=== PATIENT | female | born 1955 ===

== ENCOUNTER 2018-03-20 12:04 | Inpatient (IN) ==
[2018-03-20] MEDS ORDERED: Heparin 10,000 UNITS/10 ML Vial (for IV use) IV.PUSH STA (12:05)
[2018-03-20] MEDS ORDERED: Sod Chloride 0.9% Inj 1,000 ML IV.SIG SCH (12:15)
--- NOTE | 2018-03-20 12:26 | ED ---
HPI General Chief complaint: STEMI Alert Stated complaint: stemi alert Time Seen by Provider: 03/20/18 12:04 Source: patient Mode of arrival: EMS Limitations: no limitations History of Present Illness HPI narrative: Patient is a 62-year-old female brought in by EMS as a STEMI alert. Patient has extensive cardiac history, though she is unable to provide much of this. She is visiting from [place]. She says that suddenly prior to arrival, she developed substernal chest pain that doubled her over. She does feel some shortness of breath. She says she takes Coumadin, she did not take it last night, but did take a dose this morning. She has not had nausea or vomiting. She is unable to provide other information about her medical history. Related Data Allergies Allergy/AdvReac Type Severity Reaction Status Date / Time No Known Allergies Allergy Verified 03/20/18 12:05 Review of Systems ROS: all other systems reviewed are negative Constitutional Denies chills and Denies fever(s) ENT Denies dizziness Cardiovascular Reports chest pain Respiratory Denies cough and Denies dyspnea Gastrointestinal Denies abdominal pain, Denies nausea and Denies vomiting Musculoskeletal Denies myalgias and Denies arthralgias Integumentary/Breasts Denies skin pain and Denies wounds PMFSH Medical History Medical History CVA (cerebral vascular accident) (Acute) Cardiac defibrillator in place (Acute) High cholesterol (Acute) Surgical History Surgical History Hx of CABG (Acute) Social History Social History Substance History: No History of Abuse Smoking Status: Current every day smoker Tobacco Type: Cigarettes How Often Do You Have a Drink Containing Alcohol: Monthly or less Recent Travel in [facility] within the Last 8 Weeks: No Recent Out of Country Travel within the Last 8 Weeks: No Immunization History Tetanus Immunization: <5 Years Exam Narrative Exam Narrative: GENERAL: Awake and alert, no acute distress. SKIN: Focused skin assessment warm/dry. HEAD: Atraumatic. Normocephalic. EYES: Pupils equal and round. No scleral icterus. No injection or drainage. ENT: Mucous membranes pink and moist. NECK: Trachea midline. No JVD. CARDIOVASCULAR: Tachycardia. No murmur appreciated. RESPIRATORY: No accessory muscle use. Clear to auscultation. Breath sounds equal bilaterally. GASTROINTESTINAL: Abdomen soft, non-tender, nondistended. MUSCULOSKELETAL: No obvious deformities. No clubbing. No cyanosis. No edema. NEUROLOGICAL: Awake and alert. No obvious cranial nerve deficits. Motor grossly within normal limits. Normal speech. PSYCHIATRIC: Appropriate mood and affect; insight and judgment normal. Course Initial Documented Vital Signs Pulse Oximetry 96 03/20/18 12:06 Last Documented Vital Signs Temperature 98.2 F 03/20/18 12:09 Pulse Rate 136 H 03/20/18 12:37 Respiratory Rate 19 03/20/18 12:37 Blood Pressure 104/57 L 03/20/18 12:37 Pulse Oximetry 96 03/20/18 12:37 Medical Decision Making MDM Narrative Medical decision making narrative: Patient is a 62-year-old female who comes in complaining of chest pain. She was a STEMI alert by EMS. Patient is poor historian, but has scarring to her chest and extensive cardiac history. IV established, labs sent. STEMI alert was called here in the ED. EKG by EMS shows ST elevation in leads V3 through V5 with T wave depressions in V6. Patient given aspirin and heparin. Dr. Stein took the patient to the [facility]. Medical Screen Exam Complete: Yes Emergency Medical Condition: Yes Differential Diagnosis Differential Diagnosis: STEMI versus an STEMI versus CHF Lab Data Lab results reviewed: Yes I reviewed the patient's lab results. Result diagrams: 03/20/18 12:08 Lab Results 03/20/18 03/20/18 03/20/18 Range/Units 12:08 12:08 12:08 WBC 9.5 (4.0-11.0) th/mm3 RBC 4.79 (4.00-5.30) mil/mm3 Hgb 15.2 (11.6-15.3) gm/dL POC Hgb (Calc) (11.6-15.3) g/dL Hct 45.4 (35.0-46.0) % POC Hct (35-46.0) % MCV 94.7 (80.0-100.0) fL MCH 31.7 (27.0-34.0) pg MCHC 33.5 (32.0-36.0) % RDW 16.3 (11.6-17.2) % Plt Count 293 (150-450) th/mm3 MPV 9.1 (7.0-11.0) fL Neut % (Auto) 53.3 (16.0-70.0) % Lymph % (Auto) 39.9 (9.0-44.0) % Banks % (Auto) 4.3 (0.0-8.0) % Eos % (Auto) 2.0 (0.0-4.0) % Baso % (Auto) 0.5 (0.0-2.0) % Neut # (Auto) 5.1 (1.8-7.7) th/mm3 Lymph # (Auto) 3.8 (1.0-4.8) th/mm3 Banks # (Auto) 0.4 (0.0-0.9) th/mm3 Eos # (Auto) 0.2 (0.0-0.4) th/mm3 Baso # (Auto) 0.0 (0.0-0.2) th/mm3 WBC Differential . Differential Comment Auto diff final PT 20.3 H (9.8-11.6) sec INR 2.0 Ratio APTT 42.1 H (23.4-31.7) sec POC Sodium (137-144) mmol/L POC Potassium (3.6-5.0) mmol/L POC Chloride (102-111) mmol/L POC BUN (5-21) mg/dL POC Creatinine (0.6-1.3) mg/dL POC Glucose (68-110) mg/dL Calcium 9.2 (8.5-10.1) mg/dL Total Creatine Kinase 148 (26-192) U/L CK-MB (CK-2) 2.3 (0.5-3.6) ng/mL Troponin I 0.11 H (0.02-0.05) ng/mL B-Natriuretic Peptide (0-100) pg/mL 03/20/18 03/20/18 Range/Units 12:08 12:08 WBC (4.0-11.0) th/mm3 RBC (4.00-5.30) mil/mm3 Hgb (11.6-15.3) gm/dL POC Hgb (Calc) 15.6 H (11.6-15.3) g/dL Hct (35.0-46.0) % POC Hct 46.0 (35-46.0) % MCV (80.0-100.0) fL MCH (27.0-34.0) pg MCHC (32.0-36.0) % RDW (11.6-17.2) % Plt Count (150-450) th/mm3 MPV (7.0-11.0) fL Neut % (Auto) (16.0-70.0) % Lymph % (Auto) (9.0-44.0) % Banks % (Auto) (0.0-8.0) % Eos % (Auto) (0.0-4.0) % Baso % (Auto) (0.0-2.0) % Neut # (Auto) (1.8-7.7) th/mm3 Lymph # (Auto) (1.0-4.8) th/mm3 Banks # (Auto) (0.0-0.9) th/mm3 Eos # (Auto) (0.0-0.4) th/mm3 Baso # (Auto) (0.0-0.2) th/mm3 WBC Differential Differential Comment PT (9.8-11.6) sec INR Ratio APTT (23.4-31.7) sec POC Sodium 141 (137-144) mmol/L POC Potassium 4.6 (3.6-5.0) mmol/L POC Chloride 108 (102-111) mmol/L POC BUN 8 (5-21) mg/dL POC Creatinine 1.0 (0.6-1.3) mg/dL POC Glucose 107 (68-110) mg/dL Calcium (8.5-10.1) mg/dL Total Creatine Kinase (26-192) U/L CK-MB (CK-2) (0.5-3.6) ng/mL Troponin I (0.02-0.05) ng/mL B-Natriuretic Peptide 437 H (0-100) pg/mL Imaging Data Radiologist's impression: Chest X-Ray 03/20/18 12:06 CONCLUSION: 1. Mild diffuse interstitial prominence of unknown chronicity given lack of prior exams. Differential considerations include mild interstitial edema. 2. Minimal blunting of the right CP angle which may reflect mild pleural thickening versus trace pleural effusion. ECG Data EKG Prior to Arrival: Yes Attestation: I personally reviewed and interpreted this ECG as follows: Interpretation: ECG shows tachycardia at a rate of 136, intraventricular conduction delay, diffuse ST elevations. Discharge Plan Discharge Disposition Patient Disposition: 30 Still Patient Discharge Condition Condition: Stable Discharge Details Diagnosis: ST elevation myocardial infarction (STEMI) Physicians Team ED Provider: Rita Tee Primary Care Provider: UNKNOWN, Attending Provider: Juan David Stein Other Providers: Freddie Francis Discharge Interventions Interventions: ED Discharge Assessment Last Done: 03/20/18 12:43 Vital Signs Last Done: 03/20/18 12:37 Status ED Status: Left Department Discharge Information Discharge Date/Time: 03/20/18 12:43
[2018-03-20 12:29] LABS: Baso % (Auto) 0.5 % (0.0-2.0); Eos # (Auto) 0.2 th/mm3 (0.0-0.4); Hematocrit 45.4 % (35.0-46.0); Hemoglobin 15.2 gm/dL (11.6-15.3); Lymph # (Auto) 3.8 th/mm3 (1.0-4.8); Lymph % (Auto) 39.9 % (9.0-44.0); Mean Corpuscular HGB Conc 33.5 % (32.0-36.0); Mean Corpuscular Hemoglobin 31.7 pg (27.0-34.0); Mean Corpuscular Volume 94.7 fL (80.0-100.0); Mean Platelet Volume 9.1 fL (7.0-11.0); Mono # (Auto) 0.4 th/mm3 (0.0-0.9); Mono % (Auto) 4.3 % (0.0-8.0); Neut # (Auto) 5.1 th/mm3 (1.8-7.7); Neut % (Auto) 53.3 % (16.0-70.0); Platelet Count 293 th/mm3 (150-450); Red Blood Count 4.79 mil/mm3 (4.00-5.30); Red Cell Distribution Width 16.3 % (11.6-17.2); White Blood Count 9.5 th/mm3 (4.0-11.0)
[2018-03-20 12:35] LABS: Activated Partial Thrombo Time 42.1 sec (23.4-31.7); Prothrombin Time 20.3 sec (9.8-11.6)
[2018-03-20] MEDS ORDERED: Heparin/NS PF Inj 500 ML ONE ×2 (12:37)
[2018-03-20] MEDS ORDERED: fentaNYL Citrate Inj 100 MCG/2 ML Ampul ONE (12:37)
--- NOTE | 2018-03-20 12:41 | XR ---
EXAM DATE: 03/20/2018 12:38 PM EST AGE/SEX: 62 years / Female INDICATIONS: Chest pain. STEMI ALERT. CLINICAL DATA: This is the patient's initial encounter. Patient reports that signs and symptoms have been present for 1 day and indicates a pain score of 4/10. MEDICAL/SURGICAL HISTORY: Hypercholesterolemia. CVA. CABG. Pacemaker. COMPARISON: No prior exams available for comparison. FINDINGS: Diffuse interstitial prominence. Slight blunting of the costophrenic angle on the right. Dual-lead AI CD device in place with postsurgical features of prior median sternotomy. Cardiac silhouette is withi n normal limits. Bony thorax is intact. CONCLUSION: 1. Mild diffuse interstitial prominence of unknown chronicity given lack of prior exams. Differentia l considerations include mild interstitial edema. 2. Minimal blunting of the right CP angle which may reflect mild pleural thickening versus trace ple ural effusion. Electronically signed by: Keaton Gary MD 03/20/2018 12:39 PM EST
[2018-03-20] MEDS ORDERED: Lidocaine PF 1% Inj 30 ML Vial ONE (12:47)
[2018-03-20 12:50] LABS: Calcium 9.2 mg/dL (8.5-10.1)
[2018-03-20 12:58] LABS: Troponin I 0.11 ng/mL (0.02-0.05)
[2018-03-20 13:03] LABS: Creatine Kinase 148 U/L (26-192)
[2018-03-20 13:16] LABS: Creatine Kinase MB 2.3 ng/mL (0.5-3.6)
[2018-03-20] MEDS ORDERED: Adenosine Stress Test 90 MG/30 ML Vial IV.SIG ONE (13:21)
[2018-03-20] MEDS ORDERED: Heparin 10,000 UNITS/10 ML Vial (for IV use) ONE (13:38)
[2018-03-20] MEDS ORDERED: Misc Info for Pharmacy OTHER STA (14:01)
--- NOTE | 2018-03-20 14:03 | CATHPROC ---
[facility] HIS Report Study Information Study Number Admission Scheduled Start Study Start [id number] Mar 20 2018 12:04PM 03/20/2018 Mar 20 2018 12:33PM [place] [facility] Cardiac Catheterization Admit Source Facility Department Emergency department [facility] - Maxillofacial Prosthetics Dentist Physician and Clinical Staff Initial Juan David Quinteros Filter Press Supervisor Ashley Vega RN Recorder Elizabeth Potter,RT(R) Scrub Merle Garza,RAFAEL TECH2 Procedures Performed Procedure Location (Site) Vessel Name Coronary Angiograms LCA Left Coronary Coronary Angiograms RCA Right Coronary L Heart Cath LV Gram-hand inj. LV LV Ventricle Stent LAD Prox Left Coronary Wire insertion Fem Art (right) Femoral Art Equipment Time Reinforcing Steel Erector Description Size Mfg Part Number Used/Scraped TRANSDUCER, TRUWAVE [id number] 12:51 BENITEZ TANG * Used W/STOCKCOCK *[id number] [id number] *[id number] [id number] *[id number] *[id number] *[id number] 12:51 ACTV8me BLANKET,WARM AIR CCL * Used *[id number] 12:51 ACTV8me PACK, CCL CUSTOM * Used *[id number] 12:51 [employer] PACER PEN, SKIN DUAL W/ RULER * Used *[id number] 13:37 MEDTRONIC STENT, 3.5 9 INTEGRITY 3.5 9 Used *[id number] 13:39 TechnoVax MEDICAL 30 RADHA INDEFLATOR Used *[id number] 13:15 Techno[employer]ax MEDICAL SHEATH, FR6.5 PRELUDE 11CM FR 6.5 038ACT Used *[id number] [id number] 12:51 [employer]ax MEDICAL WIRE, 3MMJ .035 180CM 180CM Used *[id number] 12:51 NAMIC MANIFOLD, 4 PORT * Used *[id number] 12:51 NYCOMED OMNIPAQUE, 350 MG, 150ML 150ML [id number] Used [id number] 12:51 TERUMO MEDICAL SHEATH, FR4 TERUMO (10CM) FR 4 Used *[id number] 13:21 VOLCANO PRIME WIRE, VERRATA 185CM 185CM Used *[id number] Equipment Model, Serial, Lot Number and Expiration Data Description Model Number Serial Number Lot Number Expiration Date PRIME WIRE, VERRATA 185CM [id number] 12-26-2020 STENT, 3.5 9 INTEGRITY [id number] 08-08-2018 History: Allergies Allergy Reaction No Known Allergies History: Risk Factors Prior CABG Yes History: Stress Tests Stress or Imaging Studies Performed No History: Other Current Smoker Yes Labs Hgb (g/dl) Hct (%) WBC (l/cumm) Platelets (thousands) 11.60-17.00 35.00-51.00 4.00-11.00 150.00-450.00 15.2 45.4 9.5 293 Glucose (mg/dl) BUN (mg/dl) Creatinine (mg/dl) BUN:Creatinine (1:x) 74.00-106.00 7.00-18.00 0.50-1.30 10.00-20.00 107 8 1.0 8 Na (meq/l) K (meq/l) 136.00-145.00 3.50-5.10 141 4.6 INR (PTT:PT) 0.90-1.10 2 Medication Medication Total Dose (Bolus/Oral) Medication Total Dosage/Unit 1% XYLOCAINE 20 mL FENTANYL 25 mcg HEPARIN 1500 units PLAVIX 600 mg VERSED 1 mg Medications (Bolus/Oral) Medication Time Given Dosage/Unit Administered By Reason 1% XYLOCAINE 03/20/2018 1:02:15 PM 20 mL Juan David Stein 20 mL 1% XYLOCAINE given in lab by Juan David Stein in Right Groin via Subcutaneous. VERSED 03/20/2018 1:07:00 PM 1 mg Ashley Vega 1 mg VERSED given in lab by Ashley Vega RN in Right Wrist via Peripheral IV. Ordered by Juan David Stein. FENTANYL 03/20/2018 1:08:21 PM 25 mcg Ashley Vega 25 mcg FENTANYL given in lab by Ashley Vega RN in Right Wrist via Peripheral IV. Ordered by Juan David Hernandez. HEPARIN 03/20/2018 1:39:25 PM 1500 units Ashley Vega 1500 units HEPARIN given in lab by Ashley Vega RN in Right Wrist via Peripheral IV. Ordered by Juan David Quintanilla. PLAVIX 03/20/2018 1:52:20 PM 600 mg Ashley Vega 600 mg PLAVIX given in lab by Ashley Vega RN via Oral. Ordered by Juan David Stein. Medication (Drip) Medication Time Given Dosage/Unit Concentration/Unit Diluent (ml) Solution 03/20/2018 12:46:21 IV Solutions 50 mL (IV) NaCl .9 PM Patient arrived on IV Solutions in Right Wrist via Peripheral IV. Pump/Drip Flow using NaCl .9. Initial Case Assessment Cardiovascular Rhythm Chest Pain paced 0 Edema Present Skin color Skin None Normal Warm Dry Circulatory - Right Pulses Dorsalis Pedis Femoral 1 1 Scale (0,1,2,3,4,d) Circulatory - Left Pulses Dorsalis Pedis Femoral 1 1 Scale (0,1,2,3,4,d) Neurological State Oriented to time-place- Alert Moves all extremities person Chronological Log Time Study Chronological Log 12:35:54 Emergency Room notified that Maxillofacial Prosthetics Dentist is ready. 12:45:54 Patient arrived via Bed. 12:45:55 Patient Name, D.O.B, / Armband Verified By R.N. 12:45:57 Consent signed by the physician and the patient and verified by the Maxillofacial Prosthetics Dentist staff. 12:46:03 Patient has been NPO for Less than 6Hrs. 12:46:03 Skin Breakdown- none per pt 12:46:05 Patient Warmer Placed on the Table. 12:46:05 Disposable Defibrillator Pads Placed On Patient. 12:46:06 Sabra Prominences Protected 12:46:07 A # 20 IV was noted in the Wrist (right). Grade = 0 12:46:21 Patient arrived on IV Solutions in Right Wrist via Peripheral IV. Pump/Drip Flow using Na Cl .9. Vitals capture started with the following parameters, Patient=Adult, Interval=5 min, Initial Jeudhvfi=510 mmHg, 12:50:13 Deflation Rate=5 mmHg, Cuff placed on Left Arm 12:50:40 Reference ECG taken 12:53:09 Bilateral groins prepped with 2% chlorhexidine, and draped after a 3 minute waiting time. 12:53:27 JH=603 bpm, NIBP=90/72 mmhg, SpO2=98.0 %, Resp=11 B/min 12:53:39 MD paged 12:53:57 MD responded Assessment: Initial Case, Rhythm=paced, Chest Pain=0, Edema=None, Color=Normal, Skin = Warm, Dr y Right Pulses: Andrae Ped=1, Femoral=1 12:54:12 Left Pulses: Andrae Ped=1, Femoral=1 Neurological: State=Alert, Ox3, CORREA 12:55:01 Pressure channel 1 zeroed. 12:57:05 MD arrived. 12:59:00 KK=832 bpm, VANE=437/73 mmhg, SpO2=95.0 %, Resp=14 B/min Time Out. Correct patient, correct procedure, correct physician, labs, allergies, and equipment verified with livestock laborer 13:01:47 team present. Fire risk assesment completed (see hard stop sheet for coding). Time Out Conc urred by MD and individual staff in procedure. 13:02:12 Case Start 13:02:15 20 mL 1% XYLOCAINE given in lab by Juan David Stein in Right Groin via Subcutaneous. 13:03:23 UQ=469 bpm, QMFO=208/72 mmhg, SpO2=99.0 %, Resp=16 B/min 13:04:08 Access site was Right Femoral Artery. 13:04:17 A SHEATH, FR4 TERUMO (10CM) FR 4 was advanced into the Fem Art (right) using the Percutaneo us technique. 13:04:52 Activated Clotting Time Drawn A JR 4.0 INFINITI CATHETER FR 4 was advanced over a wire. OMNIPAQUE, 350 MG, 150ML 150ML was us ed for 13:05:13 injections. Recorded Pressure: LV, SS=830, Condition=Condition 1 13:05:58 (Left Ventricle) LV 95/15/31 13:06:06 The LV was manually injected with 8 cc's and visualized. OMNIPAQUE, 350 MG, 150ML 150ML use d. 13:06:57 The RCA was injected and visualized at various angles. OMNIPAQUE, 350 MG, 150ML 150ML used . 13:07:00 1 mg VERSED given in lab by Ashley Vega RN in Right Wrist via Peripheral IV. Ordered by Juan David Stein. Recorded Pressure: Ao, AE=949, Condition=Condition 1 13:07:10 (Aorta) Ao 93/72/81 13:08:21 25 mcg FENTANYL given in lab by Ashley Vega RN in Right Wrist via Peripheral IV. Ordere d by Juan David Stein. 13:08:24 OI=335 bpm, NIBP=94/74 mmhg, SpO2=99 %, Resp=15 B/min 13:09:42 ACT (Normal Range 90-180) = 258 After removing the current catheter a JL 4.0 INFINITI CATHETER FR 4 was advanced over a WIRE, 3 MMJ .035 180CM 13:10:27 180CM. 13:11:44 The LCA was injected and visualized at various angles. OMNIPAQUE, 350 MG, 150ML 150ML used . 13:13:21 VY=965 bpm, NIBP=96/76 mmhg, SpO2=96 %, Resp=20 B/min 13:17:00 Catheter was removed 13:18:57 WB=932 bpm, BTSH=914/75 mmhg, SpO2=97 %, Resp=17 B/min 13:23:25 GY=013 bpm, NIBP=90/73 mmhg, SpO2=97 %, Resp=19 B/min 13:29:03 KZ=483 bpm, NIBP=99/73 mmhg, SpO2=98.0 %, Resp=17 B/min A XB 4.0 GUIDE CATHETER FR 6 was advanced over a wire. OMNIPAQUE, 350 MG, 150ML 150ML was used for 13:29:26 injections. After removing the current catheter a XB 3.5 GUIDE CATHETER FR 6 was advanced over a WIRE, 3MMJ .035 180CM 13:31:19 180CM. 13:33:03 A PRIME WIRE, VERRATA 185CM 185CM was inserted via Fem Art (right). 13:33:25 BU=954 bpm, NIBP=99/73 mmhg, SpO2=98 %, Resp=16 B/min 13:35:52 Flow Wire was was placed in the LAD Prox. The IFR measures 0.87 Percent. An STENT, 3.5 9 INTEGRITY 3.5 9 Bare Metal Stent was inserted through a XB 3.5 GUIDE CATHETER F R 6 over a 13:37:46 PRIME WIRE, VERRATA 185CM 185CM. 13:38:24 SH=046 bpm, NIBP=98/81 mmhg, SpO2=98 %, Resp=19 B/min A STENT, 3.5 9 INTEGRITY 3.5 9 was deployed using a 30 RADHA INDEFLATOR at 10 atmospheres for 16 seconds in the 13:39:01 LAD Prox. 13:39:25 1500 units HEPARIN given in lab by Ashley Vega, RN in Right Wrist via Peripheral IV. Ord ered by Jua nDavid Stein. 13:39:56 Delivery device removed 13:40:10 Wire removed 13:40:14 Catheter was removed 13:40:17 Case End (Physician broke scrub) 13:43:25 KB=533 bpm, NIBP=98/76 mmhg, SpO2=99.0 %, Resp=17 B/min 13:43:36 In the Fem Art (right) the SHEATH, FR6.5 PRELUDE 11CM FR 6.[address] by Juan David Campbell. 13:43:57 Sterile dressing applied to site 13:43:57 No case complications noted. 13:43:59 Cine recording checked. 13:45:56 Bedside Report will be given. 13:45:57 Implantable Device card placed in patient's chart. 13:46:01 A Left Heart Cath was performed. 13:46:08 Activated Clotting Time Drawn 13:48:26 EF=156 bpm, NIBP=98/68 mmhg, SpO2=99 %, Resp=18 B/min 13:50:06 ACT (Normal Range 90-180) = 320 13:52:20 600 mg PLAVIX given in lab by Ashley Vega, NICOLETTE via Oral. Ordered by Juan David Stein. 13:53:29 IQ=957 bpm, NIBP=80/57 mmhg, SpO2=99.0 %, Resp=20 B/min 13:58:57 EK=002 bpm, FJQV=283/73 mmhg, SpO2=96.0 %, Resp=14 B/min 14:03:07 Vitals capture stopped. 14:05:32 Patient ransported to [facility]. 16:05:20 Activated Clotting Time Drawn on floor. 16:08:12 ACT (Normal Range 90-180) = 174 16:10:18 Sheath removed; pressure applied to access site. 16:30:27 Hemostasis obtained. 16:31:51 Sterile dressing applied to site 16:45:55 Site reprepped with chloroprep prior to sheath removal. 16:49:03 Nurse assessed site, no sign of bleeding or hemotoma. BP 91/54, pedal pulse palpable. End Study - Contrast Media Used In Study Contrast Total Opened (mL) Total Used (mL) Total Wasted (mL) Omnipaque 350 150 100 50 End Study - Maximum Contrast Load Max Contrast Load (mL) 353.4 End Study - Radiation Exposure Fluoro Time (minutes) 7.4 End Study - Patient Disposition Complications Transferred To Interventional Outcome No Telemetry Bed successful
--- NOTE | 2018-03-20 14:56 | MB ---
cc: Juan David Stein MD DATE: 03/20/2018 HISTORY OF PRESENT ILLNESS: Valery is a very pleasant 62-year-old lady admitted visiting from out of town, developed severe chest pain this morning. She came to the ER, had what appeared to be a bundle branch block. STEMI alert was called by the ER physician. At the time of arrival to the laboratory aide, the patient is pain free. She otherwise denies any fevers, cough, chills, bleeding, PND, orthopnea, syncope, or dizziness. PAST MEDICAL HISTORY: Per the history of present illness. She has a history of CVA, ICD hyperlipidemia, status post coronary artery bypass grafting, she thinks, approximately 10 years ago. ALLERGIES: NONE. SOCIAL HISTORY: She smokes daily. Rarely drinks alcohol. PHYSICAL EXAMINATION: VITAL SIGNS: Temperature 98.2, pulse initially 136, current pulse is 132, blood pressure 111/70, sats 97% on room air. GENERAL: She is alert and oriented x 3, in no acute distress. NECK: Supple. No JVD. No bruit. CARDIOVASCULAR: S1, S2. No murmurs, rubs or gallops. LUNGS: Clear to auscultation bilaterally. ABDOMEN: Soft, nontender, nondistended with positive bowel sounds. EXTREMITIES: No extremity edema. DIAGNOSTIC DATA: Chest x-ray shows mild diffuse interstitial prominence of unknown chronicity, given lack of prior exams. Differential considerations include mild interstitial edema, minimal blunting of the right costophrenic angle, which may reflect mild pleural thickening versus trace pleural effusion. EKG is not in the computer. From what I recall, in my view, it appeared to show a left bundle branch block, possible ST elevation in the high lateral leads and the anteroseptal leads. LABORATORY DATA: White count 9.5, hemoglobin 15.2, hematocrit 15.6, hematocrit 29.3. INR is 2.0, sodium 141, potassium 4.6, chloride 108, bicarbonate 8, creatinine 1.0. Troponin is 0.11. BNP is 437. DIAGNOSES: 1. Grq-DV-drkusmwet myocardial infarction. 2. Decompensated congestive heart failure. 3. Coronary artery disease. 4. Tobacco abuse. 5. Chronic obstructive pulmonary disease. 6. Atrial fibrillation. 7. Atrial fibrillation with rapid ventricular response. DISCUSSION: At this point in time, the patient is having resting chest pain, elevated troponin, abnormal EKG, history of coronary artery disease, multiple risk factors. Therefore, I do think urgent left heart catheterization is indicated. PLAN: Urgent left heart catheterization. I strongly advised the patient to stop smoking. Further recommendations based on the details of her heart catheterization. MD VALERIE Rodriguez/lore , 02:00 PM , 02:09 PM
--- NOTE | 2018-03-20 16:02 | MR ---
cc: Juan David Stein MD DATE: 03/20/2018 PROCEDURES PERFORMED: Left heart catheterization, left ventriculography, coronary angiography, IFR of the proximal LAD. INDICATION: Acute coronary syndrome, left bundle branch block on EKG with defibrillator in place with occasional paced beats. Chest pain at rest new onset less than 24 hours, coronary artery disease, cardiomyopathy, status post coronary artery bypass grafting. DESCRIPTION OF PROCEDURE: The patient was brought to the cardiac catheterization lab and prepped and draped in the usual sterile fashion. 10 mL of 1% lidocaine was used for local anesthetic. Right A 4-Ukrainian sheath was placed in the right common femoral artery. A 4-Ukrainian JR4 and JL4 catheters were used to perform left ventriculography and right coronary angiography. FINDINGS: The LV pressure was 110/12-15. Ejection fraction 30%. Right coronary artery is large and dominant and has at least moderate diffuse disease over an approximately 40 mm segment in the midvessel with complex eccentric plaque. The right PDA and MURTAZA are 2.5 mm reference vessel diameter vessels with no significant disease angiographically. The left main coronary has mild disease in the distal segment up to 10-20% angiographically. The left circumflex vessel has no significant disease angiographically. The first obtuse marginal vessel is a large vessel at least 3 mm reference vessel diameter with no significant disease angiographically. There is a distal posterolateral artery 2.5 mm reference vessel diameter with proximal mid 20% stenosis and a very small posterolateral artery, 1 mm in reference vessel diameter, with no significant disease angiographically. There is a large ramus intermedius vessel, reference vessel diameter of at least 3 mm, no significant disease angiographically. LAD is a large transapical vessel with a proximal mid 70% stenosis. First diagonal artery has a high takeoff. It is a small 1.5 mm reference vessel diameter with an ostial proximal 50% stenosis. Second diagonal artery is a small 0.5 mm vessel with no significant disease angiographically. There is mild diffuse disease in the mid to distal segment up to 20% angiographically. There are left to right collaterals to a small 0.5-1 mm vessel that appears fluoroscopically to probably correspond to the inferolateral wall of left ventricle. It is unclear which vessel this is, as the right MURTAZA and PDA have no significant disease and the RV branch does not appear to be occluded as well. This may be an accessory posterolateral artery. It fills to a point of occlusion in its more proximal segment. A 6-Ukrainian sheath was exchanged for a 4-Ukrainian sheath. ACT initially was 250. A 6-Ukrainian XB 3.5 guide and a 0.014 Brussels pressure wire were placed into the proximal LAD. The introducer was removed. Guide catheter was thoroughly flushed with 20 mL normal saline. Pressure waveforms were normalized. I then placed the 0.014 Brussels pressure wire into the distal LAD. The IFR was 0.87. Therefore, decision was made to perform PCI of the proximal LAD, particularly given the large amount of myocardium distal to the lesion, and resting chest pain. A 359 Integra stent was placed at the lesion site and deployed with one inflation, 10 atmospheres for 20 seconds. Stenosis went from 70% to 0% with ROSS 3 flow. CONCLUSIONS: 1. Unstable angina. I do not see any cardiovascular cause for angina, somewhat indeterminate culprit. It is unclear whether her ischemia is coming from the proximal LAD or the collateralized vessel and the posterolateral segment of the left ventricle as detailed above. 2. Cardiomyopathy, ejection fraction 30-35%. 3. IFR of the proximal LAD of 0.87. 4. Note there was no competitive flow seen in any of the washoe vessels. I did not do aortic root shot. I was not able to engage in any grafts. Also, I was not able to advance the catheter and wire into the left subclavian as there was no competitive flow seen in any of the left-sided vessels. I do not think the risk/benefit ratio favored aggressive pursuit of any imaging of the ALDRICH or vein graft. 5. Recommend Plavix 600 mg load then 75 mg a day for 12-15 months, aspirin 162 mg load then probably needs an 81 mg, as she is established on Coumadin. I am going to hold her Aggrastat as her INR is 2.0. Final ACT is 320. I strongly advised the patient to stop smoking. MD VALERIE Rodriguez/lore , 01:54 PM , 02:05 PM
--- NOTE | 2018-03-20 16:26 | P.HP ---
History of Present Illness Service: Hospitalist Primary Care Physician: UNKNOWN Chief Complaint: Chest pain History of Present Illness: Ms. Cook is a pleasant 62-year-old female with a history of coronary artery disease status post CABG, AICD placement, atrial fibrillation who presented to the emergency department after she passed out at home. Patient lives with her and 2 other family members. I saw the patient after she came back from cardiac cath. She denies any chest pain prior to passing out. However she does admit to having some lightheadedness. Upon arrival, EKG showed a bundle branch block and STEMI alert was called by ER provider. Patient subsequently underwent emergent cardiac catheterization with a stent placed to proximal LAD. At the time of this interview, patient denies any chest pain, shortness of breath, fever or chills. She denies any changes in bowel or bladder habits. No cough, abdominal pain. Past medical history: Long history of coronary artery disease starting in her 30s, stent placement, CABG, cardiomyopathy requiring AICD placement, atrial fibrillation Past surgical history: CABG Family history: Father had premature CAD. No significant distance in mother. Social history: Patient continues to smoke 1 pack a day. She denies using alcohol or illicit drugs. Inpatient Certification: I certify that the inpatient services were ordered in accordance with Medicare regulations governing the order. This includes certification that hospital inpatient services are reasonable and necessary and in the case of services not specified as inpatient-only under 42 CFR 419.22(n), that they are appropriately provided as inpatient services in accordance to with the 2-midnight benchmark under 43 CFR 412.3(e) Estimated Total Length of Stay (Days): 2 Plans for Post Hospital Care: Home Review of Systems All other systems reviewed negative except as stated [facility] - History History Provided By: Patient, House Detective / EMT - Medical History Medical History: Medical History (Last Reviewed 03/20/18 @ 17:55 by Freddie Francis DO) CVA (cerebral vascular accident) Cardiac defibrillator in place High cholesterol - Surgical History Surgical History: Surgical History (Last Reviewed 03/20/18 @ 17:55 by Freddie Francis DO) Hx of CABG - Tobacco History Tobacco Use In Past 30 Days: Yes Smoking Status: Current every day smoker Tobacco Type: Cigarettes - Alcohol History How Often Do You Have a Drink Containing Alcohol: Monthly or less - Substance Use History Substance History: No History of Abuse - Travel History Recent Travel in the [place] Within the Last 8 Weeks: No Recent Travel Out of the Country Within the Last 8 Weeks: No - Immunization History Tetanus Immunization: <5 Years Medications and Allergies Active Medications: Active Medications Aspirin (Aspirin Chew) 81 mg PO DAILY [facility] Carvedilol (Coreg) 3.125 mg PO BID [facility] Clopidogrel Bisulfate (Plavix) 75 mg PO DAILY [facility] Sodium Chloride (Ns Inj) 1,000 mls @ 30 mls/hr IV.SIG .Q24H VANESSA Stop: 03/21/18 12:14 Last Admin: 03/20/18 12:33 Dose: 30 mls/hr Diltiazem HCl 125 mg/ Sodium (Chloride) 125 mls @ 5 mls/hr IV.CONT TITRATE PRN ; Protocol PRN Reason: Per Protocol Ramipril (Altace) 2.5 mg PO DAILY [facility] Sodium Chloride (Ns Flush) 2 ml IV.FLUSH PRN PRN PRN Reason: FLUSH AFTER USING IV ACCESS Sodium Chloride (Ns Flush) 2 ml IV.FLUSH BID VANESSA Sodium Chloride (Ns Flush) 2 ml IV.FLUSH PRN PRN PRN Reason: FLUSH AFTER USING IV ACCESS Allergies Allergy/AdvReac Type Severity Reaction Status Date / Time No Known Allergies Allergy Verified 03/20/18 12:05 Exam Vital signs: Vital Signs 03/20/18 12:06 03/20/18 12:09 03/20/18 12:37 Temperature 98.2 F Pulse Rate 136 H 136 H Respiratory Rate 18 19 Blood Pressure 111/70 104/57 L Pulse Oximetry 96 97 96 Intake & Output 03/19/18 03/20/18 03/20/18 18:59 06:59 18:59 Weight 70.76 kg Narrative: GENERAL: This is a well-nourished, well-developed patient, in no apparent distress. SKIN: No rashes, ecchymoses or lesions. Warm and dry. HEAD: Atraumatic. Normocephalic. No temporal or scalp tenderness. EYES: Pupils equal round and reactive. No injection or drainage. ENT: Nose without bleeding, purulent drainage or septal hematoma. Airway patent. NECK: Trachea midline. No lymphadenopathy. Supple, nontender, no meningeal signs. CARDIOVASCULAR: Regular rate and rhythm without murmurs, gallops, or rubs. No JVD. RESPIRATORY: Clear to auscultation. Breath sounds equal bilaterally. No wheezes , rales, or rhonchi. GASTROINTESTINAL: Abdomen soft, non-tender, nondistended. No guarding. MUSCULOSKELETAL: Extremities without clubbing, cyanosis, or edema. NEUROLOGICAL: Awake and alert. Cranial nerves II through XII intact. No focal neurological deficits. Normal speech. Results - Labs CBC & Chem 7: 03/20/18 12:08 Labs: Laboratory Results - last 24 hr 03/20/18 03/20/18 03/20/18 12:08 12:08 12:08 WBC 9.5 RBC 4.79 Hgb 15.2 POC Hgb (Calc) Hct 45.4 POC Hct MCV 94.7 MCH 31.7 MCHC 33.5 RDW 16.3 Plt Count 293 MPV 9.1 Neut % (Auto) 53.3 Lymph % (Auto) 39.9 [place] % (Auto) 4.3 Eos % (Auto) 2.0 Baso % (Auto) 0.5 Neut # (Auto) 5.1 Lymph # (Auto) 3.8 [place] # (Auto) 0.4 Eos # (Auto) 0.2 Baso # (Auto) 0.0 WBC Differential . Differential Comment Auto diff final PT 20.3 H INR 2.0 APTT 42.1 H POC Sodium POC Potassium POC Chloride POC BUN POC Creatinine POC Glucose Calcium 9.2 Total Creatine Kinase 148 CK-MB (CK-2) 2.3 Troponin I 0.11 H B-Natriuretic Peptide 03/20/18 03/20/18 12:08 12:08 WBC RBC Hgb POC Hgb (Calc) 15.6 H Hct POC Hct 46.0 MCV MCH MCHC RDW Plt Count MPV Neut % (Auto) Lymph % (Auto) [place] % (Auto) Eos % (Auto) Baso % (Auto) Neut # (Auto) Lymph # (Auto) [place] # (Auto) Eos # (Auto) Baso # (Auto) WBC Differential Differential Comment PT INR APTT POC Sodium 141 POC Potassium 4.6 POC Chloride 108 POC BUN 8 POC Creatinine 1.0 POC Glucose 107 Calcium Total Creatine Kinase CK-MB (CK-2) Troponin I B-Natriuretic Peptide 437 H - Imaging Impressions Chest X-Ray 03/20/18 12:06 CONCLUSION: 1. Mild diffuse interstitial prominence of unknown chronicity given lack of prior exams. Differential considerations include mild interstitial edema. 2. Minimal blunting of the right CP angle which may reflect mild pleural thickening versus trace pleural effusion. Caprini VTE Risk Assessment Caprini VTE Risk Assessment: No/Low Risk (score <= 1) Caprini Risk Assessment Model: Point Value = 1 Point Value = 2 Point Value = 3 Point Value = 5 Age 41-60 Minor surgery BMI > 25 kg/m2 Swollen legs Varicose veins or History of unexplained or recurrent spontaneous Oral contraceptives or hormone replacement Sepsis (< 1 month) Serious lung disease, including pneumonia (< 1 month) Abnormal pulmonary function Acute myocardial infarction Congestive heart failure (< 1 month) History of inflammatory bowel disease Medical patient at bed rest Age 61-74 Arthroscopic surgery Major open surgery (> 45 min) Laparoscopic surgery (> 45 min) Malignancy Confined to bed (> 72 hours) Immobilizing plaster cast Central venous access Age >= 75 History of VTE Family history of VTE Factor V Leiden Prothrombin [id number] Lupus anticoagulant Anticardiolipin antibodies Elevated serum homocysteine Heparin-induced thrombocytopenia Other congenital or acquired thrombophilia Stroke (< 1 month) Elective arthroplasty Hip, pelvis, or leg fracture Acute spinal cord injury (< 1 month) Prophylaxis Regimen: Total Risk Factor Score Risk Level Prophylaxis Regimen 0-1 Low Early ambulation 2 Moderate Order ONE of the following: *Sequential Compression Device (SCD) *Heparin 5000 units SQ BID 3-4 Higher Order ONE of the following medications: *Heparin 5000 units SQ TID *Enoxaparin/Lovenox 40 mg SQ daily (WT < 150 kg, CrCl > 30 mL/min) *Enoxaparin/Lovenox 30 mg SQ daily (WT < 150 kg, CrCl > 10-29 mL/min) *Enoxaparin/Lovenox 30 mg SQ BID (WT < 150 kg, CrCl > 30 mL/min) AND/OR *Sequential Compression Device (SCD) 5 or more Highest Order ONE of the following medications: *Heparin 5000 units SQ TID (Preferred with Epidurals) *Enoxaparin/Lovenox 40 mg SQ daily (WT < 150 kg, CrCl > 30 mL/min) *Enoxaparin/Lovenox 30 mg SQ daily (WT < 150 kg, CrCl > 10-29 mL/min) *Enoxaparin/Lovenox 30 mg SQ BID (WT < 150 kg, CrCl > 30 mL/min) AND *Sequential Compression Device (SCD) Assessment and Plan - Plan Ms. Cook is a pleasant 62-year-old female with a long history of coronary artery disease, cardiomyopathy, status post CABG, AICD placement as well as atrial fibrillation who presented to the emergency department after she passed out. She did not have any chest pain prior to passing out but she reported to have lightheadedness. Upon arrival to the emergency department, STEMI alert was initiated. Patient subsequently underwent emergent cardiac catheterization where she received a stent to the proximal LAD. ST elevation myocardial infarction Emergent PCI stent placed to proximal LAD. Patient is on Coumadin INR was 2.0. Aggrastat was not initiated. Patient received loading dose of Plavix 600 mg. Will continue Plavix 75 mg daily for 12-15 months. Continue aspirin 81 mg daily. Patient is encouraged to discuss with her outpatient door glass installer to determine the length of aspirin use. Aspirin can likely be dropped after 1-6 months. Continue carvedilol 3.125 mg twice daily, ramipril 2.5 mg daily. Start atorvastatin 40 mg nightly Ischemic cardiomyopathy Atrial fibrillation with RVR INR was 2.0 today. Patient can continue home dose warfarin when she is discharged, likely tomorrow 03/21/2018. Continue beta-sanjay. Due to rapid ventricular response, cardiology has started diltiazem drip. There is some question regarding displacement of RV lead AICD. Will request [employer] device interrogation. Full code. Warfarin. INR 2.0.
[2018-03-20] MEDS: dilTIAZem Inj 125 MG in Sodium Chlor 0.9% Inj 100 ML IV.CONT PRN (16:44)
[2018-03-20] MEDS ORDERED: Digoxin Inj 500 MCG/2 ML Ampul IV.PUSH ONE (18:30)
[2018-03-21] MEDS: dilTIAZem Inj 125 MG in Sodium Chlor 0.9% Inj 100 ML IV.CONT PRN (01:54)
[2018-03-21 05:03] LABS: Baso # (Auto) 0.1 th/mm3 (0.0-0.2); Baso % (Auto) 1.1 % (0.0-2.0); Eos # (Auto) 0.3 th/mm3 (0.0-0.4); Eos % (Auto) 2.3 % (0.0-4.0); Hematocrit 42.9 % (35.0-46.0); Hemoglobin 14.4 gm/dL (11.6-15.3); Lymph # (Auto) 3.7 th/mm3 (1.0-4.8); Lymph % (Auto) 30.5 % (9.0-44.0); Mean Corpuscular HGB Conc 33.6 % (32.0-36.0); Mean Corpuscular Hemoglobin 31.4 pg (27.0-34.0); Mean Corpuscular Volume 93.5 fL (80.0-100.0); Mean Platelet Volume 9.5 fL (7.0-11.0); Mono # (Auto) 0.6 th/mm3 (0.0-0.9); Mono % (Auto) 5.4 % (0.0-8.0); Neut # (Auto) 7.3 th/mm3 (1.8-7.7); Neut % (Auto) 60.7 % (16.0-70.0); Platelet Count 264 th/mm3 (150-450); Red Blood Count 4.59 mil/mm3 (4.00-5.30); Red Cell Distribution Width 15.9 % (11.6-17.2); White Blood Count 12.1 th/mm3 (4.0-11.0)
[2018-03-21 05:34] LABS: Albumin 3.5 g/dL (3.4-5.0); Calcium 8.3 mg/dL (8.5-10.1); Carbon Dioxide 20.4 meq/L (21.0-32.0); Chol/HDL Ratio 5.67 Ratio; HDL Cholesterol 33.1 mg/dL (40.0-60.0); Potassium 3.7 meq/L (3.5-5.1); Total Protein 6.6 g/dL (6.4-8.2)
[2018-03-21] MEDS: Ramipril 2.5 MG Capsule PO SCH (08:18)
[2018-03-21] MEDS ORDERED: Sodium Chlor 0.9% Inj 500 ML IV.CONT ONE (09:00)
[2018-03-21] MEDS ORDERED: Warfarin Consult Pharmacy OTHER PRN (09:34)
--- NOTE | 2018-03-21 09:38 | P.PN ---
Subjective Interval history: Follow-up for STEMI, atrial fibrillation. Patient is currently sitting in her chair. Denies any chest pain, shortness of breath, fever or chills. Denies any lightheadedness or dizziness. Her pressure is low this morning. She remains asymptomatic. Physical Exam Vital signs: Vital Signs 03/20/18 12:06 03/20/18 12:09 03/20/18 12:37 Temperature 98.2 F Pulse Rate 136 H 136 H Respiratory Rate 18 19 Blood Pressure 111/70 104/57 L Pulse Oximetry 96 97 96 03/20/18 15:00 03/20/18 16:00 03/20/18 17:00 Temperature Pulse Rate 127 H 134 H 138 H Respiratory Rate 16 Blood Pressure 106/76 Pulse Oximetry 98 03/20/18 18:00 03/20/18 19:00 03/20/18 20:00 Temperature 98.1 F Pulse Rate 138 H 142 H 136 H Respiratory Rate 16 Blood Pressure 84/64 L Pulse Oximetry 95 95 03/20/18 20:45 03/20/18 21:00 03/20/18 22:00 Temperature Pulse Rate 137 H 138 H 138 H Respiratory Rate 18 Blood Pressure 95/58 L Pulse Oximetry 95 03/20/18 23:00 03/21/18 00:00 03/21/18 01:00 Temperature Pulse Rate 136 H 142 H 133 H Respiratory Rate Blood Pressure 103/67 Pulse Oximetry 97 03/21/18 02:00 03/21/18 03:00 03/21/18 04:00 Temperature 98.2 F Pulse Rate 139 H 134 H 138 H Respiratory Rate 18 Blood Pressure 83/61 L Pulse Oximetry 94 L 03/21/18 05:00 03/21/18 06:00 03/21/18 07:00 Temperature 98.1 F Pulse Rate 135 H 120 H 140 H Respiratory Rate 20 Blood Pressure 75/55 L Pulse Oximetry 98 03/21/18 08:00 03/21/18 08:13 Temperature Pulse Rate 140 H 126 H Respiratory Rate Blood Pressure Pulse Oximetry 98 Intake & Output 03/20/18 03/21/18 03/21/18 18:59 06:59 18:59 Intake Total 605 / 605 250 / 250 Output Total 625 / 625 Balance -20 / -20 250 / 250 Weight 70.76 kg 65.5 kg Intake: IV 125 / 125 250 / 250 Cordarone Inj 450 MG In D5W Inj 250 / 250 241 ML @ 1 MG/MIN 33.33 mls/hr IV.CONT TITRATE PRN Rx#: [id number] Cardizem Inj 125 MG In NS Inj 125 / 125 100 ML @ 5 MG/HR 5 mls/hr IV. CONT TITRATE PRN Rx#:[id number] Oral 480 / 480 Output: Urine 625 / 625 Other: Date of Last Bowel Movement 03/19/18 03/19/18 Weight On Admission 70.76 kg Narrative: GENERAL: Alert, oriented x3, NAD. SKIN: Warm and dry. HEAD: Normocephalic. EYES: No scleral icterus. No injection or drainage. NECK: Supple, trachea midline. No JVD or lymphadenopathy. CARDIOVASCULAR: Regular rate and rhythm without murmurs, gallops, or rubs. RESPIRATORY: Moderate air entry. No accessory muscle use. GASTROINTESTINAL: Abdomen soft, non-tender, nondistended. MUSCULOSKELETAL: No cyanosis, or edema. BACK: Nontender without obvious deformity. No CVA tenderness. Results - Labs CBC & Chem 7: 03/21/18 03:50 03/21/18 03:50 Laboratory Results - last 24 hr 03/20/18 03/20/18 03/20/18 12:08 12:08 12:08 WBC 9.5 RBC 4.79 Hgb 15.2 POC Hgb (Calc) Hct 45.4 POC Hct MCV 94.7 MCH 31.7 MCHC 33.5 RDW 16.3 Plt Count 293 MPV 9.1 Neut % (Auto) 53.3 Lymph % (Auto) 39.9 [place] % (Auto) 4.3 Eos % (Auto) 2.0 Baso % (Auto) 0.5 Neut # (Auto) 5.1 Lymph # (Auto) 3.8 [place] # (Auto) 0.4 Eos # (Auto) 0.2 Baso # (Auto) 0.0 WBC Differential . Differential Comment Auto diff final PT 20.3 H INR 2.0 APTT 42.1 H POC Sodium Sodium POC Potassium Potassium POC Chloride Chloride Carbon Dioxide Anion Gap POC BUN BUN Creatinine POC Creatinine Estimated GFR POC Glucose Random Glucose Calcium 9.2 Total Bilirubin Direct Bilirubin Indirect Bilirubin AST ALT Alkaline Phosphatase Total Creatine Kinase 148 CK-MB (CK-2) 2.3 Troponin I 0.11 H B-Natriuretic Peptide Total Protein Albumin Triglycerides Cholesterol LDL Cholesterol, Calc HDL Cholesterol Cholesterol/HDL Ratio 03/20/18 03/20/18 03/21/18 12:08 12:08 03:50 WBC 12.1 H RBC 4.59 Hgb 14.4 POC Hgb (Calc) 15.6 H Hct 42.9 POC Hct 46.0 MCV 93.5 MCH 31.4 MCHC 33.6 RDW 15.9 Plt Count 264 MPV 9.5 Neut % (Auto) 60.7 Lymph % (Auto) 30.5 [place] % (Auto) 5.4 Eos % (Auto) 2.3 Baso % (Auto) 1.1 Neut # (Auto) 7.3 Lymph # (Auto) 3.7 [place] # (Auto) 0.6 Eos # (Auto) 0.3 Baso # (Auto) 0.1 WBC Differential . Differential Comment Auto diff final PT INR APTT POC Sodium 141 Sodium POC Potassium 4.6 Potassium POC Chloride 108 Chloride Carbon Dioxide Anion Gap POC BUN 8 BUN Creatinine POC Creatinine 1.0 Estimated GFR POC Glucose 107 Random Glucose Calcium Total Bilirubin Direct Bilirubin Indirect Bilirubin AST ALT Alkaline Phosphatase Total Creatine Kinase CK-MB (CK-2) Troponin I B-Natriuretic Peptide 437 H Total Protein Albumin Triglycerides Cholesterol LDL Cholesterol, Calc HDL Cholesterol Cholesterol/HDL Ratio 03/21/18 03:50 WBC RBC Hgb POC Hgb (Calc) Hct POC Hct MCV MCH MCHC RDW Plt Count MPV Neut % (Auto) Lymph % (Auto) [place] % (Auto) Eos % (Auto) Baso % (Auto) Neut # (Auto) Lymph # (Auto) [place] # (Auto) Eos # (Auto) Baso # (Auto) WBC Differential Differential Comment PT INR APTT POC Sodium Sodium 141 POC Potassium Potassium 3.7 POC Chloride Chloride 111 H Carbon Dioxide 20.4 L Anion Gap 10 POC BUN BUN 7 Creatinine 0.96 POC Creatinine Estimated GFR 59 L POC Glucose Random Glucose 106 Calcium 8.3 L D Total Bilirubin 0.5 Direct Bilirubin 0.1 Indirect Bilirubin 0.4 AST 25 ALT 17 Alkaline Phosphatase 65 Total Creatine Kinase 74 CK-MB (CK-2) Troponin I B-Natriuretic Peptide Total Protein 6.6 Albumin 3.5 Triglycerides 213 H Cholesterol 188 LDL Cholesterol, Calc 112 H HDL Cholesterol 33.1 L Cholesterol/HDL Ratio 5.67 - Imaging Impressions Chest X-Ray 03/20/18 12:06 CONCLUSION: 1. Mild diffuse interstitial prominence of unknown chronicity given lack of prior exams. Differential considerations include mild interstitial edema. 2. Minimal blunting of the right CP angle which may reflect mild pleural thickening versus trace pleural effusion. - Procedures Cardiac catheterization on 03/20/2018. Stent placed to proximal LAD. Assessment and Plan - Plan Ms. Cook is a pleasant 62-year-old female with a long history of coronary artery disease, cardiomyopathy, status post CABG, AICD placement as well as atrial fibrillation who presented to the emergency department after she passed out. She did not have any chest pain prior to passing out but she reported to have lightheadedness. Upon arrival to the emergency department, STEMI alert was initiated. Patient subsequently underwent emergent cardiac catheterization where she received a stent to the proximal LAD. Hypotension Blood pressure this morning was 75-83 range systolic. Patient is asymptomatic. Due to holding parameters, diltiazem drip was discontinued. Per cardiology recommendation, amiodarone drip was started for atrial fibrillation. We will check manual blood pressure. If low, will give small doses of bolus fluid probably around [address] elevation myocardial infarction Emergent PCI stent placed to proximal LAD. Patient is on Coumadin INR was 2.0. Aggrastat was not initiated. Will continue Plavix 75 mg daily for 12-15 months. Continue aspirin 81 mg daily. Patient is encouraged to discuss with her outpatient wax engraver to determine the length of aspirin use. Aspirin can likely be dropped after 1-6 months. Continue carvedilol 3.125 mg twice daily, ramipril 2.5 mg daily. Continue atorvastatin 40 mg nightly Ischemic cardiomyopathy Atrial fibrillation with RVR INR was 2.0. consult Warfarin Pharmacy Continue beta-sanjay. Diltiazem drip on hold due to low BP. Cardiology started Amiodarone drip which also may lower BP. There is some question regarding displacement of RV lead AICD. [employer] device interrogation requested. Full code. Will resume Warfarin. INR 2.0 yesterday.
--- NOTE | 2018-03-21 14:07 | P.PNCA ---
Subjective Interval history: assymptomatic in nad Medications and Allergies Active Medications: Active Medications Aspirin (Aspirin Chew) 81 mg PO DAILY [facility] Last Admin: 03/21/18 08:18 Dose: 81 mg Atorvastatin Calcium (Lipitor) 40 mg PO HS [facility] Last Admin: 03/20/18 20:49 Dose: 40 mg Carvedilol (Coreg) 3.125 mg PO BID [facility] Last Admin: 03/21/18 08:18 Dose: Not Given Clopidogrel Bisulfate (Plavix) 75 mg PO DAILY [facility] Last Admin: 03/21/18 08:18 Dose: 75 mg Diltiazem HCl 125 mg/ Sodium (Chloride) 125 mls @ 5 mls/hr IV.CONT TITRATE PRN ; Protocol PRN Reason: Per Protocol Last Titration: 03/21/18 04:18 Dose: 0 mg/hr, 0 mls/hr Amiodarone HCl 450 mg/ (Dextrose) 250 mls @ 33.33 mls/hr IV.CONT TITRATE PRN; Protocol PRN Reason: Per Protocol Last Titration: 03/21/18 08:20 Dose: Infused Pharmacy Profile Note (Coumadin Consult Pharmacy) 1 each OTHER UNSCH PRN PRN Reason: PHARMACY DOCUMENTATION Ramipril (Altace) 2.5 mg PO DAILY [facility] Last Admin: 03/21/18 08:18 Dose: 2.5 mg Sodium Chloride (Ns Flush) 2 ml IV.FLUSH BID [facility] Last Admin: 03/21/18 08:19 Dose: 2 ml Sodium Chloride (Ns Flush) 2 ml IV.FLUSH PRN PRN PRN Reason: FLUSH AFTER USING IV ACCESS Warfarin Sodium (Coumadin) 5 mg PO DAILY@1600 [facility] Allergies Allergy/AdvReac Type Severity Reaction Status Date / Time No Known Allergies Allergy Verified 03/20/18 12:05 Physical Exam Vital signs: Vital Signs 03/20/18 15:00 03/20/18 16:00 03/20/18 17:00 Temperature Pulse Rate 127 H 134 H 138 H Respiratory Rate 16 Blood Pressure 106/76 Pulse Oximetry 98 03/20/18 18:00 03/20/18 19:00 03/20/18 20:00 Temperature 98.1 F Pulse Rate 138 H 142 H 136 H Respiratory Rate 16 Blood Pressure 84/64 L Pulse Oximetry 95 95 03/20/18 20:45 03/20/18 21:00 03/20/18 22:00 Temperature Pulse Rate 137 H 138 H 138 H Respiratory Rate 18 Blood Pressure 95/58 L Pulse Oximetry 95 03/20/18 23:00 03/21/18 00:00 03/21/18 01:00 Temperature Pulse Rate 136 H 142 H 133 H Respiratory Rate Blood Pressure 103/67 Pulse Oximetry 97 03/21/18 02:00 03/21/18 03:00 03/21/18 04:00 Temperature 98.2 F Pulse Rate 139 H 134 H 138 H Respiratory Rate 18 Blood Pressure 83/61 L Pulse Oximetry 94 L 03/21/18 05:00 03/21/18 06:00 03/21/18 07:00 Temperature 98.1 F Pulse Rate 135 H 120 H 140 H Respiratory Rate 20 Blood Pressure 75/55 L Pulse Oximetry 98 03/21/18 08:00 03/21/18 08:13 03/21/18 10:00 Temperature Pulse Rate 140 H 126 H 140 H Respiratory Rate Blood Pressure Pulse Oximetry 98 03/21/18 10:23 03/21/18 11:00 03/21/18 12:00 Temperature 98.8 F Pulse Rate 139 H 139 H Respiratory Rate 18 Blood Pressure 80/62 L Pulse Oximetry 98 98 03/21/18 12:43 Temperature Pulse Rate 139 H Respiratory Rate Blood Pressure Pulse Oximetry Intake & Output 03/20/18 03/21/18 03/21/18 18:59 06:59 18:59 Intake Total 605 / 605 1849 Output Total 625 / 625 Balance -20 / -20 1849 185 Weight 70.76 kg 65.5 kg Intake: IV 125 / 125 1850 / 1850 Cordarone Inj 450 MG In D5W Inj 250 / 250 241 ML @ 1 MG/MIN 33.33 mls/hr IV.CONT TITRATE PRN Rx#: [id number] NS Inj 500 ML @ Wide Open IV. 500 / 500 CONT .Q0M ONE Rx#:[id number] Cardizem Inj 125 MG In NS Inj 125 / 125 100 ML @ 5 MG/HR 5 mls/hr IV. CONT TITRATE PRN Rx#:[id number] NS Inj 1,000 ML @ 30 mls/hr IV. 800 / 800 SIG .Q24H [facility] Rx#:[id number] Oral 480 / 480 Output: Urine 625 / 625 Other: Date of Last Bowel Movement 03/19/18 03/19/18 Weight On Admission 70.76 kg - Constitutional no acute distress - Routine HEENT Exam Head: Present: normocephalic - Routine Neck Exam Present: supple - Routine Respiratory Exam Present: CTA bilaterally - Routine Cardiovascular Exam Present: S1 - Routine Abdominal Exam Present: soft - Routine Extremities Exam Comments: no ramón Results 03/21/18 03:50 03/21/18 03:50 Cardiac Enzymes 03/20/18 03/20/18 03/21/18 Range/Units 12:08 12:08 03:50 AST 25 (15-37) U/L CK-MB (CK-2) 2.3 (0.5-3.6) ng/mL Troponin I 0.11 H (0.02-0.05) ng/mL B-Natriuretic Peptide 437 H (0-100) pg/mL Coagulation 03/20/18 03/20/18 Range/Units 12:08 12:08 PT 20.3 H (9.8-11.6) sec APTT 42.1 H (23.4-31.7) sec B-Natriuretic Peptide 437 H (0-100) pg/mL Lipids 03/21/18 Range/Units 03:50 Triglycerides 213 H (42-150) mg/dL Cholesterol 188 (120-200) mg/dL HDL Cholesterol 33.1 L (40.0-60.0) mg/dL Cholesterol/HDL Ratio 5.67 Ratio CBC 03/20/18 03/21/18 Range/Units 12:08 03:50 WBC 9.5 12.1 H (4.0-11.0) th/mm3 RBC 4.79 4.59 (4.00-5.30) mil/mm3 Hgb 15.2 14.4 (11.6-15.3) gm/dL Hct 45.4 42.9 (35.0-46.0) % Plt Count 293 264 (150-450) th/mm3 Neut # (Auto) 5.1 7.3 (1.8-7.7) th/mm3 Lymph # (Auto) 3.8 3.7 (1.0-4.8) th/mm3 [place] # (Auto) 0.4 0.6 (0.0-0.9) th/mm3 Eos # (Auto) 0.2 0.3 (0.0-0.4) th/mm3 Baso # (Auto) 0.0 0.1 (0.0-0.2) th/mm3 Comprehensive Metabolic Panel 03/20/18 03/21/18 Range/Units 12:08 03:50 Sodium 141 (136-145) meq/L Potassium 3.7 (3.5-5.1) meq/L Chloride 111 H (98-107) meq/L Carbon Dioxide 20.4 L (21.0-32.0) meq/L BUN 7 (7-18) mg/dL Creatinine 0.96 (0.50-1.00) mg/dL Calcium 9.2 8.3 L D (8.5-10.1) mg/dL Direct Bilirubin 0.1 (0.0-0.2) mg/dL Indirect Bilirubin 0.4 (0.0-0.8) mg/dL AST 25 (15-37) U/L ALT 17 (10-53) U/L Alkaline Phosphatase 65 (45-117) U/L Total Protein 6.6 (6.4-8.2) g/dL Albumin 3.5 (3.4-5.0) g/dL Intake and Output 03/20/18 03/21/18 03/21/18 22:59 06:59 14:59 Intake Total 605 / 605 1849 Output Total 625 / 625 Balance -20 / -20 1849 Intake: IV 125 / 125 1849 Cordarone Inj 450 MG In D5W Inj 250 / 250 241 ML @ 1 MG/MIN 33.33 mls/hr IV.CONT TITRATE PRN Rx#: [id number] NS Inj 500 ML @ Wide Open IV. 500 / 500 CONT .Q0M ONE Rx#:[id number] Cardizem Inj 125 MG In NS Inj 125 / 125 100 ML @ 5 MG/HR 5 mls/hr IV. CONT TITRATE PRN Rx#:[id number] NS Inj 1,000 ML @ 30 mls/hr IV. 800 / 800 SIG .Q24H [facility] Rx#:[id number] Oral 480 / 480 Output: Urine 625 / 625 Other: Date of Last Bowel Movement 03/19/18 03/19/18 03/19/18 Weight 65.5 kg Weight On Admission 70.76 kg - Imaging and Cardiology Imaging: Impressions Chest X-Ray 03/20/18 12:06 CONCLUSION: 1. Mild diffuse interstitial prominence of unknown chronicity given lack of prior exams. Differential considerations include mild interstitial edema. 2. Minimal blunting of the right CP angle which may reflect mild pleural thickening versus trace pleural effusion. Assessment and Plan - Assessment (1) NSTEMI (non-ST elevated myocardial infarction) Code(s): I21.4 - Non-ST elevation (NSTEMI) myocardial infarction Status: Acute (2) CAD (coronary artery disease) Code(s): I25.10 - Atherosclerotic heart disease of [place] coronary artery without angina pectoris Status: Acute (3) Cardiomyopathy Code(s): I42.9 - Cardiomyopathy, unspecified Status: Acute (4) Tobacco abuse Code(s): Z72.0 - Tobacco use Status: Acute (5) Atrial fibrillation Code(s): I48.91 - Unspecified atrial fibrillation Status: Acute - Plan 1.) CAD - pod #1 bms prox lad, assymptomatic, continue aspirin and plavix 2.) Afib with rvr - failing medical management due to hyoptension, continue coumadin, restart amio drip, consult Dr Mitchell 03/23/18; d/w Dr Francis and nurse
--- NOTE | 2018-03-21 14:12 | ECG ---
Date Performed: 03/20/2018 Time Performed: 12:05:28 PTAGE: 62 years EKG: WIDE COMPLEX TACHYCARDIA INTRAVENTRICULAR CONDUCTION DELAY LATERAL MYOCARDIAL INFARCTION [place] OLONGED CORRECTED QT INTERVAL ABNORMAL ECG NO PREVIOUS TRACING DOCTOR: Juan David Stein Interpretating Date/Time 03/21/2018 14:11:36
[2018-03-21] MEDS: Metoprolol Inj 5 MG/5 ML Vial IV.PUSH PRN ×2 (20:24→23:00)
[2018-03-21] MEDS: Sod Chloride 0.9% Inj 1,000 ML IV.CONT SCH (20:25)
[2018-03-22] MEDS: Metoprolol Inj 5 MG/5 ML Vial IV.PUSH PRN (01:14)
[2018-03-22] MEDS: dilTIAZem Inj 125 MG in Sodium Chlor 0.9% Inj 100 ML IV.CONT PRN (04:20)
[2018-03-22 05:23] LABS: INR 3.1 Ratio; Prothrombin Time 31.2 sec (9.8-11.6)
[2018-03-22] MEDS: Sod Chloride 0.9% Inj 1,000 ML IV.CONT SCH ×2 (09:41→18:14)
[2018-03-22] MEDS: Ramipril 2.5 MG Capsule PO SCH (09:47)
[2018-03-22] MEDS: Digoxin Inj 500 MCG/2 ML Ampul IV.PUSH ONE ×2 (09:50→14:27)
[2018-03-22] MEDS ORDERED: Magnesium Sulfate Inj 2 GM in Sodium Chlor 0.9% Inj 96 ML IV.SIG ONE (12:40)
--- NOTE | 2018-03-22 12:47 | P.PN ---
Subjective Interval history: Follow-up for STEMI, atrial fibrillation. Patient is currently doing well. However in the morning she little bit of nausea. No fever or chills. No current chest pain. She did feel palpitation and some lightheadedness earlier today. Physical Exam Vital signs: Vital Signs 03/21/18 12:43 03/21/18 14:00 03/21/18 15:00 Temperature 98.0 F Pulse Rate 139 H 141 H 138 H Respiratory Rate 19 Blood Pressure 103/79 Pulse Oximetry 97 03/21/18 16:00 03/21/18 16:20 03/21/18 16:30 Temperature Pulse Rate 135 H 140 H 140 H Respiratory Rate Blood Pressure Pulse Oximetry 03/21/18 19:00 03/21/18 20:00 03/21/18 21:00 Temperature 98.4 F Pulse Rate 76 140 H 138 H Respiratory Rate 16 Blood Pressure 100/66 Pulse Oximetry 97 97 03/21/18 22:00 03/21/18 23:00 03/22/18 00:00 Temperature 98.1 F Pulse Rate 134 H 135 H 134 H Respiratory Rate 16 Blood Pressure 110/78 Pulse Oximetry 98 03/22/18 01:00 03/22/18 02:00 03/22/18 03:00 Temperature 99 F Pulse Rate 138 H 134 H 140 H Respiratory Rate 16 Blood Pressure 108/71 Pulse Oximetry 94 L 03/22/18 04:00 03/22/18 05:00 03/22/18 06:00 Temperature Pulse Rate 136 H 136 H 142 H Respiratory Rate Blood Pressure Pulse Oximetry 03/22/18 07:00 03/22/18 08:00 03/22/18 09:00 Temperature 98.3 F Pulse Rate 140 H 145 H 142 H Respiratory Rate 22 Blood Pressure 110/57 L Pulse Oximetry 96 03/22/18 09:55 03/22/18 10:00 03/22/18 11:00 Temperature 98.5 F Pulse Rate 140 H 141 H Respiratory Rate 20 Blood Pressure 112/85 Pulse Oximetry 92 L 97 03/22/18 11:37 Temperature Pulse Rate 140 H Respiratory Rate Blood Pressure Pulse Oximetry Intake & Output 03/21/18 03/22/18 03/22/18 18:59 06:59 18:59 Intake Total 2650 / 2650 365 / 365 1000 / 1000 Output Total 1400 / 1400 Balance 1250 / 1250 365 / 365 1000 / 1000 Weight 68 kg Intake: IV 1850 / 1850 125 / 125 1000 / 1000 Cordarone Inj 450 MG In D5W Inj 250 / 250 241 ML @ 1 MG/MIN 33.33 mls/hr IV.CONT TITRATE PRN Rx#: [id number] NS Inj 1,000 ML @ 100 mls/hr IV 1000 / 1000 .CONT .Q10H [facility] Rx#:[id number] NS Inj 500 ML @ Wide Open IV. 500 / 500 CONT .Q0M ONE Rx#:[id number] Cardizem Inj 125 MG In NS Inj 125 / 125 100 ML @ 5 MG/HR 5 mls/hr IV. CONT TITRATE PRN Rx#:[id number] NS Inj 1,000 ML @ 30 mls/hr IV. 800 / 800 SIG .Q24H [facility] Rx#:[id number] Oral 800 / 800 240 / 240 Output: Urine 1400 / 1400 Other: # Voids 4 Date of Last Bowel Movement 03/19/18 03/19/18 03/19/18 Narrative: GENERAL: Alert, oriented x3, NAD. SKIN: Warm and dry. HEAD: Normocephalic. EYES: No scleral icterus. No injection or drainage. NECK: Supple, trachea midline. No JVD or lymphadenopathy. CARDIOVASCULAR: Irregularly irregular, tachycardic without murmurs, gallops, or rubs. RESPIRATORY: Moderate air entry. No accessory muscle use. GASTROINTESTINAL: Abdomen soft, non-tender, nondistended. MUSCULOSKELETAL: No cyanosis, or edema. BACK: Nontender without obvious deformity. No CVA tenderness. Results - Labs CBC & Chem 7: 03/21/18 03:50 03/21/18 03:50 Laboratory Results - last 24 hr 03/22/18 04:36 PT 31.2 H D INR 3.1 - Procedures Cardiac catheterization on 03/20/2018. Stent placed to proximal LAD. Assessment and Plan - Plan Ms. Cook is a pleasant 62-year-old female with a long history of coronary artery disease, cardiomyopathy, status post CABG, AICD placement as well as atrial fibrillation who presented to the emergency department after she passed out. She did not have any chest pain prior to passing out but she reported to have lightheadedness. Upon arrival to the emergency department, STEMI alert was initiated. Patient subsequently underwent emergent cardiac catheterization where she received a stent to the proximal LAD. ST elevation myocardial infarction Emergent PCI stent placed to proximal LAD. Patient is on Coumadin INR was 3.1 today. Warfarin on hold today. Will continue Plavix 75 mg daily for 12-15 months. Continue aspirin 81 mg daily. Patient is encouraged to discuss with her outpatient sales engagement executive to determine the length of aspirin use. Aspirin can likely be dropped after 1-6 months. Continue carvedilol 3.125 mg twice daily, ramipril 2.5 mg daily. Continue atorvastatin 40 mg nightly Ischemic cardiomyopathy Atrial fibrillation with RVR/Atrial flutter INR 3.1. Warfarin dosing per pharmacy. Continue beta-sanjay. Heart rate is around 140-150. Will obtain EKG. Likely Aflutter We will consult electrophysiology tomorrow. Amiodarone drip and Cardizem drip are not helping to control the rate. We will start digoxin 250 mcg IV push now and consider 125 mcg later in the day. Full code. On warfarin. INR 3.1.
[2018-03-22] MEDS ORDERED: Lidocaine 2% 100 MG/5 ML Syringe IV.PUSH ONE (13:30)
[2018-03-22] MEDS ORDERED: Lidocaine/D5W 2000 mg/500 mL 2,000 MG/500 ML BAG IV.CONT SCH (14:00)
--- NOTE | 2018-03-22 14:33 | P.PNCA ---
Subjective Interval history: alert in nad Medications and Allergies Active Medications: Active Medications Aspirin (Aspirin Chew) 81 mg PO DAILY [facility] Last Admin: 03/22/18 09:47 Dose: 81 mg Atorvastatin Calcium (Lipitor) 40 mg PO HS [facility] Last Admin: 03/21/18 20:23 Dose: 40 mg Carvedilol (Coreg) 3.125 mg PO BID [facility] Last Admin: 03/22/18 09:42 Dose: Not Given Clopidogrel Bisulfate (Plavix) 75 mg PO DAILY [facility] Last Admin: 03/22/18 09:47 Dose: 75 mg Digoxin (Lanoxin Inj) 125 mcg IV.PUSH ONCE ONE Stop: 03/22/18 17:01 Digoxin (Lanoxin) 125 mcg PO DAILY [facility] Diltiazem HCl 125 mg/ Sodium (Chloride) 125 mls @ 5 mls/hr IV.CONT TITRATE PRN ; Protocol PRN Reason: Per Protocol Last Admin: 03/22/18 04:20 Dose: 15 mg/hr, 15 mls/hr Amiodarone HCl 450 mg/ (Dextrose) 250 mls @ 33.33 mls/hr IV.CONT TITRATE PRN; Protocol PRN Reason: Per Protocol Last Titration: 03/21/18 08:20 Dose: Infused Sodium Chloride (Ns Inj) 1,000 mls @ 100 mls/hr IV.CONT .Q10H [facility] Stop: 03/22/18 18:12 Last Infusion: 03/22/18 09:41 Dose: Infused Magnesium Sulfate 2 gm/ Sodium (Chloride) 100 mls @ 50 mls/hr IV.SIG ONCE ONE Stop: 03/22/18 14:39 Lidocaine HCl/Dextrose (Lidocaine/D5w 2000 Mg/500 Ml Premix Inj) 2,000 mg in 500 mls @ 15 mls/hr IV.CONT .Q24H [facility] Pharmacy Profile Note (Coumadin Consult Pharmacy) 1 each OTHER UNSCH PRN PRN Reason: PHARMACY DOCUMENTATION Ramipril (Altace) 2.5 mg PO DAILY [facility] Last Admin: 03/22/18 09:47 Dose: 2.5 mg Sodium Chloride (Ns Flush) 2 ml IV.FLUSH BID [facility] Last Admin: 03/22/18 09:47 Dose: 2 ml Sodium Chloride (Ns Flush) 2 ml IV.FLUSH PRN PRN PRN Reason: FLUSH AFTER USING IV ACCESS Warfarin Sodium (Coumadin) 5 mg PO DAILY@1600 [facility] Last Admin: 03/21/18 17:06 Dose: 5 mg Allergies Allergy/AdvReac Type Severity Reaction Status Date / Time No Known Allergies Allergy Verified 03/20/18 12:05 Physical Exam Vital signs: Vital Signs 03/21/18 15:00 03/21/18 16:00 03/21/18 16:20 Temperature 98.0 F Pulse Rate 138 H 135 H 140 H Respiratory Rate 19 Blood Pressure 103/79 Pulse Oximetry 97 03/21/18 16:30 03/21/18 19:00 03/21/18 20:00 Temperature 98.4 F Pulse Rate 140 H 76 140 H Respiratory Rate 16 Blood Pressure 100/66 Pulse Oximetry 97 97 03/21/18 21:00 03/21/18 22:00 03/21/18 23:00 Temperature 98.1 F Pulse Rate 138 H 134 H 135 H Respiratory Rate 16 Blood Pressure 110/78 Pulse Oximetry 98 03/22/18 00:00 03/22/18 01:00 03/22/18 02:00 Temperature Pulse Rate 134 H 138 H 134 H Respiratory Rate Blood Pressure Pulse Oximetry 03/22/18 03:00 03/22/18 04:00 03/22/18 05:00 Temperature 99 F Pulse Rate 140 H 136 H 136 H Respiratory Rate 16 Blood Pressure 108/71 Pulse Oximetry 94 L 03/22/18 06:00 03/22/18 07:00 03/22/18 08:00 Temperature 98.3 F Pulse Rate 142 H 140 H 145 H Respiratory Rate 22 Blood Pressure 110/57 L Pulse Oximetry 96 03/22/18 09:00 03/22/18 09:55 03/22/18 10:00 Temperature Pulse Rate 142 H 140 H Respiratory Rate Blood Pressure Pulse Oximetry 92 L 03/22/18 11:00 03/22/18 11:37 03/22/18 13:00 Temperature 98.5 F Pulse Rate 141 H 140 H 140 H Respiratory Rate 20 Blood Pressure 112/85 Pulse Oximetry 97 03/22/18 14:00 Temperature Pulse Rate 136 H Respiratory Rate Blood Pressure Pulse Oximetry Intake & Output 03/21/18 03/22/18 03/22/18 18:59 06:59 18:59 Intake Total 2650 / 2650 365 / 365 1000 / 1000 Output Total 1400 / 1400 Balance 1250 / 1250 365 / 365 1000 / 1000 Weight 68 kg Intake: IV 1850 / 1850 125 / 125 1000 / 1000 Cordarone Inj 450 MG In D5W Inj 250 / 250 241 ML @ 1 MG/MIN 33.33 mls/hr IV.CONT TITRATE PRN Rx#: [id number] NS Inj 1,000 ML @ 100 mls/hr IV 1000 / 1000 .CONT .Q10H [facility] Rx#:[id number] NS Inj 500 ML @ Wide Open IV. 500 / 500 CONT .Q0M ONE Rx#:[id number] Cardizem Inj 125 MG In NS Inj 125 / 125 100 ML @ 5 MG/HR 5 mls/hr IV. CONT TITRATE PRN Rx#:[id number] NS Inj 1,000 ML @ 30 mls/hr IV. 800 / 800 SIG .Q24H [facility] Rx#:[id number] Oral 800 / 800 240 / 240 Output: Urine 1400 / 1400 Other: # Voids 4 Date of Last Bowel Movement 03/19/18 03/19/18 03/19/18 - Constitutional no acute distress - Routine HEENT Exam Head: Present: normocephalic - Routine Neck Exam Present: supple - Routine Respiratory Exam Present: CTA bilaterally - Routine Cardiovascular Exam Present: S1, S2 - Routine Abdominal Exam Present: soft - Routine Extremities Exam Comments: no ramón Results 03/21/18 03:50 03/21/18 03:50 Cardiac Enzymes 03/21/18 Range/Units 03:50 AST 25 (15-37) U/L Coagulation 03/22/18 Range/Units 04:36 PT 31.2 H D (9.8-11.6) sec Lipids 03/21/18 Range/Units 03:50 Triglycerides 213 H (42-150) mg/dL Cholesterol 188 (120-200) mg/dL HDL Cholesterol 33.1 L (40.0-60.0) mg/dL Cholesterol/HDL Ratio 5.67 Ratio CBC 03/21/18 Range/Units 03:50 WBC 12.1 H (4.0-11.0) th/mm3 RBC 4.59 (4.00-5.30) mil/mm3 Hgb 14.4 (11.6-15.3) gm/dL Hct 42.9 (35.0-46.0) % Plt Count 264 (150-450) th/mm3 Neut # (Auto) 7.3 (1.8-7.7) th/mm3 Lymph # (Auto) 3.7 (1.0-4.8) th/mm3 [place] # (Auto) 0.6 (0.0-0.9) th/mm3 Eos # (Auto) 0.3 (0.0-0.4) th/mm3 Baso # (Auto) 0.1 (0.0-0.2) th/mm3 Comprehensive Metabolic Panel 03/21/18 Range/Units 03:50 Sodium 141 (136-145) meq/L Potassium 3.7 (3.5-5.1) meq/L Chloride 111 H (98-107) meq/L Carbon Dioxide 20.4 L (21.0-32.0) meq/L BUN 7 (7-18) mg/dL Creatinine 0.96 (0.50-1.00) mg/dL Calcium 8.3 L D (8.5-10.1) mg/dL Direct Bilirubin 0.1 (0.0-0.2) mg/dL Indirect Bilirubin 0.4 (0.0-0.8) mg/dL AST 25 (15-37) U/L ALT 17 (10-53) U/L Alkaline Phosphatase 65 (45-117) U/L Total Protein 6.6 (6.4-8.2) g/dL Albumin 3.5 (3.4-5.0) g/dL Intake and Output 03/21/18 03/22/18 03/22/18 22:59 06:59 14:59 Intake Total 800 / 800 365 / 365 1000 / 1000 Output Total 1400 / 1400 Balance -600 / -600 365 / 365 1000 / 1000 Intake: IV 125 / 125 1000 / 1000 NS Inj 1,000 ML @ 100 mls/hr IV 1000 / 1000 .CONT .Q10H [facility] Rx#:[id number] Cardizem Inj 125 MG In NS Inj 125 / 125 100 ML @ 5 MG/HR 5 mls/hr IV. CONT TITRATE PRN Rx#:[id number] Oral 800 / 800 240 / 240 Output: Urine 1400 / 1400 Other: # Voids 4 Date of Last Bowel Movement 03/19/18 03/19/18 03/19/18 Weight 68 kg Assessment and Plan - Assessment (1) NSTEMI (non-ST elevated myocardial infarction) Code(s): I21.4 - Non-ST elevation (NSTEMI) myocardial infarction Status: Acute (2) CAD (coronary artery disease) Code(s): I25.10 - Atherosclerotic heart disease of [place] coronary artery without angina pectoris Status: Acute (3) Cardiomyopathy Code(s): I42.9 - Cardiomyopathy, unspecified Status: Acute (4) Tobacco abuse Code(s): Z72.0 - Tobacco use Status: Acute (5) Atrial fibrillation Code(s): I48.91 - Unspecified atrial fibrillation Status: Acute - Plan 1.) CAD - pod #2 bms prox lad, assymptomatic, continue aspirin and plavix 2.) wide complex tachycardia - failing medical management due to hyoptension, continue coumadin, continue amio drip, trial of lidocaine; do not want to cardiovert now as patient just ate lunch and is hemodynamically stable, consult Dr Mitchell 03/23/18; d/w Dr Francis and nurse
[2018-03-22] MEDS ORDERED: Digoxin Inj 500 MCG/2 ML Ampul IV.PUSH ONE (17:00)
[2018-03-22] MEDS: Acetaminophen 325 MG Tablet PO PRN (18:58)
--- NOTE | 2018-03-22 20:06 | P.CONCC ---
History of Present Illness Service: Critical Care Medicine Consult date: 03/22/18 Requesting Physician: Freddie Francis Reason for Consult: Tachycardia Primary Care Provider: UNKNOWN Chief Complaint: tachycardia History of Present Illness: Date of admission 03/20/18 Date of critical care consult 03/22/18 History is was obtained from patient and review of EMR. She is a somewhat difficult historian who has extensive past medical history but is has difficulty describing the details of it. 62 yo female with past medical history of coronary artery disease with prior CABG, on chronic anticoagulation with warfarin for history of paroxysmal atrial fibrillation (per her report), hyperlipidemia, chronic systolic heart failure with pacemaker and defibrillator in place ~10 years, ongoing tobacco abuse, history of alcohol abuse in remission, prior stroke. She presented [place] [facility] [place] with chief complaint of substernal chest pain. EKG demonstrated wide-complex tachycardia with rate of 136. STEMI alert was called due to lateral ST deviation. She was taken emergently to [facility] [place] by Dr. Stein where she underwent bare metal stent to proximal LAD, ultimately diagnosed with NSTEMI. Per cardiology verbal report, EF was low, ~30-35%. Following the procedure, she experienced improvement in chest pain. However, she remained tachycardic despite cardizem drip, amiodarone drip (started 03/20) , metoprolol total 15 mg IV bolus (overnight 03/21 and revenue cycle manager 03/22), digoxin 500 mcg IV 03/20 and 250 mcg IV 03/22 ~16:00 and 125 mcg IV 03/22 18: 28. Reportedly, the afternoon of 03/22 she was hypotensive and cardizem was placed on hold. She was given 1 L NS bolus (per AQUARIUM SPECIALIST report). She was given lidocaine bolus [address] Stein and started on lidocaine 1 mg/min. Device rep has been contacted to interrogate device and Dr. Stein has consulted Dr. Mitchell for possible ZURDO and cardioversion. Critical care medicine has been consulted to follow patient in order to intervene expeditiously in the event she becomes unstable. Patient states she does not have any CP, SOB, or palpitations. She does say she is "afraid to move much" because her chest pain prior to coming to the hospital was worse with exertion and she doesn't want it to start again. She does not have much appetite, is nauseous, but has not had vomiting or diaphoresis. She does have frontal headache that started around 4 pm. She indicates that she has had exertional CP and SOB for "several months " and perhaps even 1-2 years prior to seeking medical attention. She does not feel that her symptoms are acutely worse tonight. Review of Systems All other systems reviewed negative except as stated in HPI [facility] - History History Provided By: Patient, Shipping Associate / EMT - Medical History Medical History: Medical History (Last Updated 03/22/18 @ 23:19 by Hayde Estrada MD) CAD (coronary artery disease) CVA (cerebral vascular accident) Cardiac defibrillator in place High cholesterol - Surgical History Surgical History: Surgical History (Last Reviewed 03/26/18 @ 07:59 by Gonzalez Hendrix) Hx of CABG - Family History Family History: Family History (Last Updated 03/22/18 @ 23:20 by Hayde Estrada MD) Father Myocardial infarction Mother Pacemaker - Tobacco History Second Hand Smoke Exposure: Yes Tobacco Use In Past 30 Days: Yes Smoking Status: Current every day smoker Tobacco Type: Cigarettes Packs Per Day: 1 - Alcohol History How Often Do You Have a Drink Containing Alcohol: Monthly or less - Substance Use History Substance History: Past History - Substance Use Type Alcohol Status: Sustained Remission Frequency: bottle per day Last Used: "over 10 years ago" - Travel History Recent Travel in the [place] Within the Last 8 Weeks: No Recent Travel Out of the Country Within the Last 8 Weeks: No - Immunization History Tetanus Immunization: <5 Years Medications and Allergies Active Medications: Active Medications Acetaminophen (Tylenol) 650 mg PO Q4H PRN PRN Reason: Headache, fever, pain 1-4 Last Admin: 03/22/18 18:58 Dose: 650 mg Aspirin (Aspirin Chew) 81 mg PO DAILY [facility] Last Admin: 03/22/18 09:47 Dose: 81 mg Atorvastatin Calcium (Lipitor) 40 mg PO HS [facility] Last Admin: 03/21/18 20:23 Dose: 40 mg Carvedilol (Coreg) 3.125 mg PO BID [facility] Last Admin: 03/22/18 09:42 Dose: Not Given Clopidogrel Bisulfate (Plavix) 75 mg PO DAILY [facility] Last Admin: 03/22/18 09:47 Dose: 75 mg Digoxin (Lanoxin) 125 mcg PO DAILY [facility] Diltiazem HCl 125 mg/ Sodium (Chloride) 125 mls @ 5 mls/hr IV.CONT TITRATE PRN ; Protocol PRN Reason: Per Protocol Last Titration: 03/22/18 19:34 Dose: 0 mg/hr, 0 mls/hr Amiodarone HCl 450 mg/ (Dextrose) 250 mls @ 33.33 mls/hr IV.CONT TITRATE PRN; Protocol PRN Reason: Per Protocol Last Titration: 03/21/18 08:20 Dose: Infused Lidocaine HCl/Dextrose (Lidocaine/D5w 2000 Mg/500 Ml Premix Inj) 2,000 mg in 500 mls @ 15 mls/hr IV.CONT .Q24H [facility] Last Admin: 03/22/18 14:40 Dose: 1 mg/min, 15 mls/hr Pharmacy Profile Note (Coumadin Consult Pharmacy) 1 each OTHER UNSCH PRN PRN Reason: PHARMACY DOCUMENTATION Ramipril (Altace) 2.5 mg PO DAILY [facility] Last Admin: 03/22/18 09:47 Dose: 2.5 mg Sodium Chloride (Ns Flush) 2 ml IV.FLUSH BID [facility] Last Admin: 03/22/18 09:47 Dose: 2 ml Sodium Chloride (Ns Flush) 2 ml IV.FLUSH PRN PRN PRN Reason: FLUSH AFTER USING IV ACCESS Warfarin Sodium (Coumadin) 5 mg PO DAILY@1600 [facility] Last Admin: 03/21/18 17:06 Dose: 5 mg Allergies Allergy/AdvReac Type Severity Reaction Status Date / Time No Known Allergies Allergy Verified 03/20/18 12:05 Physical Exam Vital signs: Vital Signs 03/21/18 21:00 03/21/18 22:00 03/21/18 23:00 Temperature 98.1 F Pulse Rate 138 H 134 H 135 H Respiratory Rate 16 Blood Pressure 110/78 Pulse Oximetry 98 03/22/18 00:00 03/22/18 01:00 03/22/18 02:00 Temperature Pulse Rate 134 H 138 H 134 H Respiratory Rate Blood Pressure Pulse Oximetry 03/22/18 03:00 03/22/18 04:00 03/22/18 05:00 Temperature 99 F Pulse Rate 140 H 136 H 136 H Respiratory Rate 16 Blood Pressure 108/71 Pulse Oximetry 94 L 03/22/18 06:00 03/22/18 07:00 03/22/18 08:00 Temperature 98.3 F Pulse Rate 142 H 140 H 145 H Respiratory Rate 22 Blood Pressure 110/57 L Pulse Oximetry 96 03/22/18 09:00 03/22/18 09:55 03/22/18 10:00 Temperature Pulse Rate 142 H 140 H Respiratory Rate Blood Pressure Pulse Oximetry 92 L 03/22/18 11:00 03/22/18 11:37 03/22/18 13:00 Temperature 98.5 F Pulse Rate 141 H 140 H 140 H Respiratory Rate 20 Blood Pressure 112/85 Pulse Oximetry 97 03/22/18 14:00 03/22/18 15:00 03/22/18 16:00 Temperature 98.7 F Pulse Rate 136 H 132 H 135 H Respiratory Rate 16 Blood Pressure 115/85 Pulse Oximetry 94 L 03/22/18 17:00 03/22/18 17:32 Temperature Pulse Rate 132 H Respiratory Rate Blood Pressure Pulse Oximetry 95 Intake & Output 03/22/18 03/22/18 03/23/18 06:59 18:59 06:59 Intake Total 365 / 365 1120 / 1120 Output Total 350 / 350 Balance 365 / 365 770 / 770 Weight 68 kg Intake: IV 125 / 125 1000 / 1000 NS Inj 1,000 ML @ 100 mls/hr IV 1000 / 1000 .CONT .Q10H [facility]ES[facility] Rx#:[id number] Cardizem Inj 125 MG In NS Inj 125 / 125 100 ML @ 5 MG/HR 5 mls/hr IV. CONT TITRATE PRN Rx#:[id number] Oral 240 / 240 120 / 120 Output: Urine 350 / 350 Other: # Voids 4 Date of Last Bowel Movement 03/19/18 03/19/18 Narrative: GENERAL: Well-nourished, well-developed patient who is sitting up in CVICU bed, alert and conversant. SKIN: Warm and dry. HEAD: Atraumatic. Normocephalic. EYES: Pupils equal and round. No scleral icterus. No injection or drainage. ENT: No nasal bleeding or discharge. NECK: Trachea midline. CARDIOVASCULAR: Tachycardic, regular, rate in the 130s with right bundle branch block pattern on the monitor. No murmurs rubs or gallops. RESPIRATORY: Mildly tachypneic but without accessory muscle use on 4 L nasal cannula, clear to auscultation bilaterally without wheezes rales or rhonchi. GASTROINTESTINAL: Abdomen soft, non-tender, nondistended. Bowel sounds present. MUSCULOSKELETAL: Extremities without clubbing, cyanosis, or edema. NEUROLOGICAL: Awake and alert. No obvious cranial nerve deficits. Motor grossly within normal limits. Normal speech. - Urinary Catheter Management Female External Cath placed during this visit: yes Reason for continuing: Not indwelling catheter Insertion date: 03/23/18 Insertion time: 03:00 Assessment and Plan - Problem List (1) NSTEMI (non-ST elevated myocardial infarction) Code(s): I21.4 - Non-ST elevation (NSTEMI) myocardial infarction Status: Acute (2) Chronic systolic heart failure Code(s): I50.22 - Chronic systolic (congestive) heart failure Status: Chronic (3) Artificial cardiac pacemaker Code(s): Z95.0 - Presence of cardiac pacemaker Status: Chronic (4) AICD (automatic cardioverter/defibrillator) present Code(s): Z95.810 - Presence of automatic (implantable) cardiac defibrillator Status: Chronic (5) CAD (coronary artery disease) Code(s): I25.10 - Atherosclerotic heart disease of [place] coronary artery without angina pectoris Status: Chronic (6) Tobacco abuse Code(s): Z72.0 - Tobacco use Status: Chronic (7) Wide-complex tachycardia Code(s): I47.2 - Ventricular tachycardia Status: Acute (8) History of stroke Code(s): Z86.73 - Personal history of transient ischemic attack (TIA), and cerebral infarction without residual deficits Status: Chronic (9) History of ETOH abuse Code(s): Z87.898 - Personal history of other specified conditions Status: Chronic - Assessment and Plan Plan: NEURO: Prior history of alcohol dependence in remission for many years Prior history of stroke Tylenol as needed for headache RESP: Tobacco abuse Tobacco cessation counseling discussed. CV: Wide-complex tachycardia NSTEMI Bare-metal stent proximal LAD (Dr. Juan David Stein) Coronary disease Chronic systolic heart failure Patient has had WCT with rate 130-140 since admission despite multiple AV murali blocking agents. BP is normal, SBP 130s. Rhythm is difficult to determine, could be atrial with aberrancy but with her prior cardiac history, right axis deviation, would need to presume V tach. Dr. Stein has initiated amiodarone and lidocaine without result. Discussed with him and he would like for Dr. Mitchell to see tomorrow and possibly proceed with ZURDO and electrical cardioversion. Patient has been anticoagulated with warfarin, but this rhythm has been present at least since admission (possibly longer) so there remains concern for stroke with cardioversion of atrial rhythm so prefers to proceed with ZURDO beforehand given that she has not had significant clinical globe changer 3 days. I discussed trial of adenosine but he states with multiple AV murali blocking agents on board, would be concerned for inducing block and unopposed accessory path conduction. At this point, patient states she has not noted any acute change and she will await evaluation by EP receiving tank operator tomorrow. I discussed with her that if she becomes hemodynamically unstable I will proceed with emergent electrical cardioversion, and she agrees with this. On warfarin, Plavix and aspirin (triple therapy per cardiology). continue Coreg 3.125 mg po bid. Continue lisinopril 5 mg po daily. Efforts at rate control with cardizem has been unsuccessful and may have contributed to hypotension, will continue to hold. Interrogate ICD. Dr. Stein following. Dr. Mitchell to see 03/24. GI: NPO at midnight FEN/RENAL: Check electrolytes now and replace as indicated. Creatinine has been normal. ID: Monitor for signs and symptoms of infection peer HEME: Monitor CBC ENDO: Checked TSH, is WNL. PROPH: SCD and therapeutic INR provide DVT prophylaxis. Stress ulcer prophylaxis is not indicated. ACCESS: Peripheral IV is providing adequate access. Level 3 Consult
--- NOTE | 2018-03-22 20:32 | XR ---
EXAM DATE: 03/22/2018 8:26 PM EST AGE/SEX: 62 years / Female INDICATIONS: Shortness of breath. CLINICAL DATA: This is the patient's initial encounter. Patient reports that signs and symptoms have been present for 1 day and indicates a pain score of 0/10. MEDICAL/SURGICAL HISTORY: Myocardial infarction. Hypercholesterolemia. CVA. Pacemaker. Open h eart, unspecified. Cardiac stent. COMPARISON: [facility] [place], CHEST 1V SINGLE AP, 03/20/2018. . FINDINGS: Mild patchy parenchymal opacities in a basilar predominant"are worsening. Possible small pleural effu sions. No pneumothorax seen. Some apparent focal pleural thickening versus old rib fractures laterall y of the right mid and lower lung. Heart size within normal limits. Pacer/defibrillator again noted. There is been previous median oconnor otomy. CONCLUSION: Mild patchy consolidation and small effusions developing/worsening of both bases. Electronically signed by: Eduard Raymond MD 03/22/2018 8:31 PM EST
[2018-03-22 20:38] LABS: Carbon Dioxide 19.4 meq/L (21.0-32.0); Magnesium 2.3 mg/dL (1.5-2.5); Potassium 3.9 meq/L (3.5-5.1)
[2018-03-22 20:51] LABS: Thyroid Stimulating Hormone 1.85 uIU/mL (0.358-3.740)
[2018-03-23 04:49] LABS: INR 4.3 Ratio; Prothrombin Time 42.7 sec (9.8-11.6)
[2018-03-23] MEDS ORDERED: Metoprolol Inj 5 MG/5 ML Vial ONE (06:56)
--- NOTE | 2018-03-23 07:22 | P.PNCC ---
Subjective Subjective Remarks/Hospital Course: History is was obtained from patient and review of EMR. She is a somewhat difficult historian who has extensive past medical history but is has difficulty describing the details of it. 62 yo female with past medical history of coronary artery disease with prior CABG, on chronic anticoagulation with warfarin for history of paroxysmal atrial fibrillation (per her report), hyperlipidemia, chronic systolic heart failure with pacemaker and defibrillator in place ~10 years, ongoing tobacco abuse, history of alcohol abuse in remission, prior stroke. [place] [facility] with chief complaint of substernal chest pain. EKG demonstrated wide-complex tachycardia with rate of 136. STEMI alert was called due to lateral ST deviation. She was taken emergently to [facility] by Dr. Stein where she underwent bare metal stent to proximal LAD, ultimately diagnosed with NSTEMI. Per cardiology verbal report, EF was low, ~30-35%. Following the procedure, she experienced improvement in chest pain. However, she remained tachycardic despite cardizem drip, amiodarone drip (started 03/20) , metoprolol total 15 mg IV bolus (overnight 03/21 and sql architect 03/22), digoxin 500 mcg IV 03/20 and 250 mcg IV 03/22 ~16:00 and 125 mcg IV 03/22 18: 28. Reportedly, the afternoon of 03/22 she was hypotensive and cardizem was placed on hold. She was given 1 L NS bolus (per SCRAP DROP CRANE OPERATOR report). She was given lidocaine bolus [address] Stein and started on lidocaine 1 mg/min. Device rep has been contacted to interrogate device and Dr. Stein has consulted Dr. Mitchell for possible ZURDO and cardioversion. Critical care medicine has been consulted to follow patient in order to intervene expeditiously in the event she becomes unstable. Patient states she does not have any CP, SOB, or palpitations. She does say she is "afraid to move much" because her chest pain prior to coming to the hospital was worse with exertion and she doesn't want it to start again. She does not have much appetite, is nauseous, but has not had vomiting or diaphoresis. She does have frontal headache that started around 4 pm. She indicates that she has had exertional CP and SOB for "several months " and perhaps even 1-2 years prior to seeking medical attention. She does not feel that her symptoms are acutely worse tonight. SUBJ 03/23: Patient is lying in bed, appears somewhat anxious. Heart rate remains 130-135, regular. EKG shows wide complex tachycardia. Currently on amiodarone and lidocaine. To me it appears like SVT with aberrancy, but no response to AV murali blockers. I do not see any evidence of preexcitation on EKG. Will attempt adenosine 6 mg if no response, followed by 12 mg IV push. Discussed with Dr. Stein who is agreeable with the plan Objective Vital Signs / I&O: Vital Signs 03/22/18 08:00 03/22/18 09:00 03/22/18 09:55 Temperature Pulse Rate 145 H 142 H Respiratory Rate Blood Pressure Pulse Oximetry 92 L 03/22/18 10:00 03/22/18 11:00 03/22/18 11:37 Temperature 98.5 F Pulse Rate 140 H 141 H 140 H Respiratory Rate 20 Blood Pressure 112/85 Pulse Oximetry 97 03/22/18 13:00 03/22/18 14:00 03/22/18 15:00 Temperature 98.7 F Pulse Rate 140 H 136 H 132 H Respiratory Rate 16 Blood Pressure 115/85 Pulse Oximetry 94 L 03/22/18 16:00 03/22/18 17:00 03/22/18 17:32 Temperature Pulse Rate 135 H 132 H Respiratory Rate Blood Pressure Pulse Oximetry 95 03/22/18 19:00 03/22/18 20:00 03/22/18 21:56 Temperature 98.2 F Pulse Rate 133 H 132 H Respiratory Rate 24 22 Blood Pressure 139/99 H Pulse Oximetry 96 96 03/22/18 23:00 03/23/18 00:00 03/23/18 03:00 Temperature 98.5 F 97.8 F Pulse Rate 131 H 132 H 132 H Respiratory Rate 22 22 21 Blood Pressure 136/59 L 112/87 Pulse Oximetry 91 L 95 03/23/18 04:00 Temperature Pulse Rate 134 H Respiratory Rate Blood Pressure Pulse Oximetry Intake & Output 03/22/18 03/23/18 03/23/18 18:59 06:59 18:59 Intake Total 1120 / 1120 200 / 200 Output Total 350 / 350 800 / 800 Balance 770 / 770 -600 / -600 Intake: IV 1000 / 1000 NS Inj 1,000 ML @ 100 mls/hr IV 1000 / 1000 .CONT .Q10H [facility] Rx#:[id number] Oral 120 / 120 200 / 200 Output: Urine 350 / 350 800 / 800 Other: # Voids 3 Date of Last Bowel Movement 03/19/18 03/19/18 Result Diagrams: 03/21/18 03:50 03/22/18 20:11 Objective Remarks: GENERAL: Well-nourished, well-developed patient who is sitting up in CVICU bed, alert, mildly anxious SKIN: Warm and dry. HEAD: Atraumatic. Normocephalic. EYES: Pupils equal and round. No scleral icterus. No injection or drainage. ENT: No nasal bleeding or discharge. NECK: Trachea midline. CARDIOVASCULAR: Tachycardic, regular, rate in the 130s wide-complex tachycardia ?SVT with aberrancy. No murmurs rubs or gallops. RESPIRATORY: Mildly tachypneic but without accessory muscle use on 4 L nasal cannula, clear to auscultation bilaterally without wheezes rales or rhonchi. GASTROINTESTINAL: Abdomen soft, non-tender, nondistended. Bowel sounds present. MUSCULOSKELETAL: Extremities without clubbing, cyanosis, or edema. NEUROLOGICAL: Awake and alert. No obvious cranial nerve deficits. Motor grossly within normal limits. Normal speech. Assessment and Plan - Problem List (1) NSTEMI (non-ST elevated myocardial infarction) Code(s): I21.4 - Non-ST elevation (NSTEMI) myocardial infarction Status: Acute (2) Chronic systolic heart failure Code(s): I50.22 - Chronic systolic (congestive) heart failure Status: Chronic (3) Artificial cardiac pacemaker Code(s): Z95.0 - Presence of cardiac pacemaker Status: Chronic (4) AICD (automatic cardioverter/defibrillator) present Code(s): Z95.810 - Presence of automatic (implantable) cardiac defibrillator Status: Chronic (5) CAD (coronary artery disease) Code(s): I25.10 - Atherosclerotic heart disease of [place] coronary artery without angina pectoris Status: Chronic (6) Tobacco abuse Code(s): Z72.0 - Tobacco use Status: Chronic - Assessment and Plan Plan: NEURO: Prior history of alcohol dependence in remission for many years Prior history of stroke Tylenol as needed for headache RESP: Tobacco abuse Tobacco cessation counseling discussed. CV: Wide-complex tachycardia Probable SVT with aberrancy NSTEMI Bare-metal stent proximal LAD 11 (Dr. Juan David Stein) Coronary disease Chronic systolic heart failure Patient has had WCT with rate 130-140 since admission despite multiple AV murali blocking agents. BP is normal, SBP 130s. EKG to me appears like SVT with aberrancy and retrograde conduction. Attempt adenosis and 6 mg IV push followed by 12 mg IV push if there is no response I agree that rhythm is difficult to determine, could be atrial with aberrancy but with her prior cardiac history, right axis deviation, presume V tach. Dr. Stein has initiated amiodarone and lidocaine without result. Dr. Mitchell to see tomorrow and possibly proceed with ZURDO and electrical cardioversion, if no response to Adenosine. Patient has been anticoagulated with warfarin, but this rhythm has been present at least since admission (possibly longer) so there remains concern for stroke with cardioversion of atrial rhythm so prefers to proceed with ZURDO beforehand given that she has not had significant clinical loom changer [address] Estrada discussed with her that if she becomes hemodynamically unstable I will proceed with emergent electrical cardioversion, and she agrees with this. On warfarin, Plavix and aspirin (triple therapy per cardiology). continue Coreg 3.125 mg po bid. no response to 5 mg IV push of metoprolol today Continue lisinopril 5 mg po daily. Efforts at rate control with cardizem has been unsuccessful and may have contributed to hypotension, will continue to hold. Interrogate ICD. Dr. Stein following. Dr. Mitchell to see 03/24. GI: NPO at midnight FEN/RENAL: Replace electrolytes as indicated. Creatinine has been normal. ID: Monitor for signs and symptoms of infection HEME: Monitor CBC ENDO: Checked TSH, is WNL. PROPH: SCD and therapeutic INR provide DVT prophylaxis. Stress ulcer prophylaxis is not indicated. ACCESS: Peripheral IV is providing adequate access. Level 3
[2018-03-23] MEDS ORDERED: Adenosine Inj 6 MG/2 ML Syringe IV.PUSH ONE ×6 (07:23→22:28)
[2018-03-23] MEDS ORDERED: Metoprolol Inj 5 MG/5 ML Vial IV.PUSH STA (08:36)
[2018-03-23] MEDS ORDERED: Metoprolol Inj 5 MG/5 ML Vial IV.PUSH ONE ×2 (08:45→12:45)
[2018-03-23] MEDS ORDERED: Digoxin 125 MCG Tablet PO SCH (09:00)
[2018-03-23] MEDS ORDERED: Carvedilol 6.25 MG Tablet PO ONE (09:41)
[2018-03-23 09:55] LABS: Alanine Aminotransferase 18 U/L (10-53)
[2018-03-23 09:58] LABS: Alkaline Phosphatase 66 U/L (45-117); Total Protein 7.5 g/dL (6.4-8.2)
[2018-03-23] MEDS: Carvedilol 12.5 MG Tablet PO SCH ×2 (09:58→21:35)
[2018-03-23] MEDS: Ramipril 2.5 MG Capsule PO SCH (10:00)
[2018-03-23 10:03] LABS: Albumin 3.4 g/dL (3.4-5.0); Anion Gap 9 meq/L (5-15); Aspartate Aminotransferase 33 U/L (15-37); Blood Urea Nitrogen 12 mg/dL (7-18); Calcium 8.6 mg/dL (8.5-10.1); Carbon Dioxide 21.8 meq/L (21.0-32.0); Chloride 106 meq/L (98-107); Glomerular Filtration Rate 61 mL/min (>89); Glucose,Random 110 mg/dL (74-106); Potassium 4.3 meq/L (3.5-5.1); Sodium 137 meq/L (136-145)
[2018-03-23] MEDS ORDERED: Digoxin Inj 500 MCG/2 ML Ampul ONE (10:38)
[2018-03-23] MEDS ORDERED: Digoxin Inj 500 MCG/2 ML Ampul IV.PUSH ONE (11:30)
[2018-03-23] MEDS: dilTIAZem Inj 125 MG in Sodium Chlor 0.9% Inj 100 ML IV.CONT PRN ×2 (14:33→22:35)
[2018-03-23] MEDS ORDERED: Iohexol 350 MG/ML 100 ML Vial (for Cath Lab) IVCONTRAST ONE (16:49)
--- NOTE | 2018-03-23 17:17 | P.PNCA ---
Subjective Interval history: alert in nad Medications and Allergies Active Medications: Active Medications Acetaminophen (Tylenol) 650 mg PO Q4H PRN PRN Reason: Headache, fever, pain 1-4 Last Admin: 03/22/18 18:58 Dose: 650 mg Aspirin (Aspirin Chew) 81 mg PO DAILY [facility] Last Admin: 03/23/18 10:00 Dose: 81 mg Atorvastatin Calcium (Lipitor) 40 mg PO HS [facility] Last Admin: 03/22/18 21:45 Dose: 40 mg Carvedilol (Coreg) 12.5 mg PO BID [facility] Last Admin: 03/23/18 09:58 Dose: 12.5 mg Clopidogrel Bisulfate (Plavix) 75 mg PO DAILY [facility] Last Admin: 03/23/18 09:59 Dose: 75 mg Diltiazem HCl 125 mg/ Sodium (Chloride) 125 mls @ 5 mls/hr IV.CONT TITRATE PRN ; Protocol PRN Reason: Per Protocol Last Titration: 03/23/18 16:32 Dose: 15 mg/hr, 15 mls/hr Amiodarone HCl 450 mg/ (Dextrose) 250 mls @ 33.33 mls/hr IV.CONT TITRATE PRN; Protocol PRN Reason: Per Protocol Last Admin: 03/23/18 15:21 Dose: 0.5 mg/min, 16.66 mls/hr Pharmacy Profile Note (Coumadin Consult Pharmacy) 1 each OTHER UNSCH PRN PRN Reason: PHARMACY DOCUMENTATION Ramipril (Altace) 2.5 mg PO DAILY [facility] Last Admin: 03/23/18 10:00 Dose: 2.5 mg Sodium Chloride (Ns Flush) 2 ml IV.FLUSH BID [facility] Last Admin: 03/23/18 10:00 Dose: 2 ml Sodium Chloride (Ns Flush) 2 ml IV.FLUSH PRN PRN PRN Reason: FLUSH AFTER USING IV ACCESS Warfarin Sodium (Coumadin) 5 mg PO DAILY@1600 [facility] Last Admin: 03/21/18 17:06 Dose: 5 mg Allergies Allergy/AdvReac Type Severity Reaction Status Date / Time No Known Allergies Allergy Verified 03/20/18 12:05 Physical Exam Vital signs: Vital Signs 03/22/18 17:32 03/22/18 19:00 03/22/18 20:00 Temperature 98.2 F Pulse Rate 133 H 132 H Respiratory Rate 24 22 Blood Pressure 139/99 H Pulse Oximetry 95 96 03/22/18 21:56 03/22/18 23:00 03/23/18 00:00 Temperature 98.5 F Pulse Rate 131 H 132 H Respiratory Rate 22 22 Blood Pressure 136/59 L Pulse Oximetry 96 91 L 03/23/18 03:00 03/23/18 04:00 03/23/18 07:00 Temperature 97.8 F 97.8 F Pulse Rate 132 H 134 H 132 H Respiratory Rate 21 24 Blood Pressure 112/87 110/86 Pulse Oximetry 95 97 03/23/18 07:25 03/23/18 08:00 03/23/18 08:08 Temperature Pulse Rate 74 Respiratory Rate Blood Pressure Pulse Oximetry 98 98 03/23/18 09:00 03/23/18 09:25 03/23/18 11:00 Temperature 98.4 F Pulse Rate 132 H 131 H Respiratory Rate 24 Blood Pressure 98/56 L Pulse Oximetry 97 97 03/23/18 12:00 03/23/18 15:00 03/23/18 16:00 Temperature 98.8 F Pulse Rate 131 H 132 H 132 H Respiratory Rate 24 Blood Pressure 118/88 Pulse Oximetry 95 Intake & Output 03/22/18 03/23/18 03/23/18 18:59 06:59 18:59 Intake Total 1120 / 1120 200 / 200 125 / 125 Output Total 350 / 350 800 / 800 Balance 770 / 770 -600 / -600 125 / 125 Intake: IV 1000 / 1000 125 / 125 NS Inj 1,000 ML @ 100 mls/hr IV 1000 / 1000 .CONT .Q10H VANESSA Rx#:[id number] Cardizem Inj 125 MG In NS Inj 125 / 125 100 ML @ 5 MG/HR 5 mls/hr IV. CONT TITRATE PRN Rx#:[id number] Oral 120 / 120 200 / 200 Output: Urine 350 / 350 800 / 800 Other: # Voids 3 Date of Last Bowel Movement 03/19/18 03/19/18 03/19/18 - Constitutional no acute distress - Routine HEENT Exam Head: Present: normocephalic - Routine Neck Exam Present: supple - Routine Respiratory Exam Present: CTA bilaterally - Routine Cardiovascular Exam Present: S1, S2 - Routine Abdominal Exam Present: soft - Routine Extremities Exam Comments: no ramón - Urinary Catheter Management Female External Cath placed during this visit: yes Reason for continuing: Not indwelling catheter Insertion date: 03/23/18 Insertion time: 03:00 Results 03/21/18 03:50 03/23/18 08:58 Cardiac Enzymes 03/23/18 Range/Units 08:58 AST 33 (15-37) U/L Coagulation 03/22/18 03/23/18 Range/Units 04:36 04:12 PT 31.2 H D 42.7 H D (9.8-11.6) sec Comprehensive Metabolic Panel 03/22/18 03/23/18 Range/Units 20:11 08:58 Sodium 139 137 (136-145) meq/L Potassium 3.9 4.3 (3.5-5.1) meq/L Chloride 111 H 106 (98-107) meq/L Carbon Dioxide 19.4 L 21.8 (21.0-32.0) meq/L BUN 9 12 (7-18) mg/dL Creatinine 0.86 0.94 (0.50-1.00) mg/dL Calcium 8.0 L 8.6 (8.5-10.1) mg/dL AST 33 (15-37) U/L ALT 18 (10-53) U/L Alkaline Phosphatase 66 (45-117) U/L Total Protein 7.5 D (6.4-8.2) g/dL Albumin 3.4 (3.4-5.0) g/dL Intake and Output 03/23/18 03/23/18 03/23/18 06:59 14:59 22:59 Intake Total 200 / 200 125 / 125 Output Total 800 / 800 Balance -600 / -600 125 / 125 Intake: IV 125 / 125 Cardizem Inj 125 MG In NS Inj 125 / 125 100 ML @ 5 MG/HR 5 mls/hr IV. CONT TITRATE PRN Rx#:[id number] Oral 200 / 200 Output: Urine 800 / 800 Other: # Voids 3 Date of Last Bowel Movement 03/19/18 03/19/18 - Imaging and Cardiology Imaging: Impressions Chest X-Ray 03/22/18 20:02 CONCLUSION: Mild patchy consolidation and small effusions developing/worsening of both bases. Assessment and Plan - Assessment (1) NSTEMI (non-ST elevated myocardial infarction) Code(s): I21.4 - Non-ST elevation (NSTEMI) myocardial infarction Status: Acute (2) CAD (coronary artery disease) Code(s): I25.10 - Atherosclerotic heart disease of [place] coronary artery without angina pectoris Status: Chronic (3) Cardiomyopathy Code(s): I42.9 - Cardiomyopathy, unspecified Status: Acute (4) Tobacco abuse Code(s): Z72.0 - Tobacco use Status: Chronic (5) Atrial fibrillation Code(s): I48.91 - Unspecified atrial fibrillation Status: Acute - Plan 1.) CAD - pod #3 bms prox lad, assymptomatic, continue aspirin and plavix 2.) wide complex tachycardia - failing medical management due to hyoptension, continue coumadin, continue amio drip, temporarily responsive to 12 mg adenosine suggesting supraventricular origin, therefore lidocaine stopped, do not want to mechanically cardiovert without marilin as patient has h/o cva and is hemodynamically stable, consult Dr Mitchell 03/23/18; d/w Dr Morrison 03/23/18.
[2018-03-23] MEDS ORDERED: Lidocaine 2% Inj 50 ML Vial ONE (17:54)
[2018-03-23] MEDS ORDERED: Lidocaine 2% 100 MG/5 ML Syringe IV.PUSH ONE (17:55)
[2018-03-23] MEDS ORDERED: Morphine Sulfate Inj 2 MG/ML Vial ONE (18:06)
[2018-03-23] MEDS ORDERED: Midazolam Inj 5 MG/ML 1 ML Vial ONE ×2 (18:06→22:57)
[2018-03-23] MEDS ORDERED: Propofol Inj 500 MG/50 ML Vial ONE (18:43)
[2018-03-23] MEDS ORDERED: fentaNYL Citrate Inj 100 MCG/2 ML Ampul ONE (18:49)
--- NOTE | 2018-03-23 18:54 | ECHRPT ---
Indication: AFIB AND FLUTTER CONCLUSIONS Severely dilated left ventricle. The left ventricular systolic function is severely reduced with an estimated ejection fraction in th e range of 20-25%. There is global left ventricular dysfunction, apical akinesis. Moderate mitral valve regurgitation. The mitral valve regurgitation jet is directed centrally due to poor leaflet coaptation. There is mild tricuspid valve regurgitation. The inferior vena cava is dilated. There is estimated moderate pulmonary hypertension present (range 50-60 mmHg). BP: / HR: Rhythm: Other MEASUREMENTS (Male / Female) Normal Values Technical Quality: 2D ECHO LV Diastolic Diameter PLAX 5.1 cm 4.2 - 5.9 / 3.9 - 5.3 cm LV Systolic Diameter PLAX 5.0 cm IVS Diastolic Thickness 1.0 cm 0.6 - 1.0 / 0.6 - 0.9 cm LVPW Diastolic Thickness 1.1 cm 0.6 - 1.0 / 0.6 - 0.9 cm LV Relative Wall Thickness 0.4 LVOT Diameter 1.8 cm Aortic Root Diameter 2.7 cm LA Systolic Diameter LX 3.0 cm 3.0 - 4.0 / 2.7 - 3.8 cm LV Ejection Fraction MOD BP 28.7 % >= 55 % LV Ejection Fraction MOD 4C 30.3 % LV Ejection Fraction 4C AL 30.9 % LV Ejection Fraction MOD 2C 21.9 % LV Ejection Fraction 2C AL 21.8 % M-MODE Aortic Root Diameter MM 3.0 cm LA Systolic Diameter MM 4.8 cm LA Ao Ratio MM 1.6 AV Cusp Separation MM 1.2 cm DOPPLER AV Peak Velocity 129.0 cm/s AV Peak Gradient 6.7 mmHg LVOT Peak Velocity 83.4 cm/s LVOT Peak Gradient 2.8 mmHg AV Area Cont Eq pk 1.6 cm Mitral E Point Velocity 110.0 cm/s LV E' Lateral Velocity 8.6 cm/s Mitral E to LV E' Lateral Ratio 12.7 LV E' Septal Velocity 3.5 cm/s Mitral E to LV E' Septal Ratio 31.6 TR Peak Velocity 303.3 cm/s TR Peak Gradient 36.8 mmHg Right Atrial Pressure 10.0 mmHg Pulmonary Artery Systolic Pressu 46.8 mmHg Right Ventricular Systolic Press 46.8 mmHg PV Peak Velocity 85.4 cm/s PV Peak Gradient 2.9 mmHg FINDINGS LEFT VENTRICLE Severely dilated left ventricle. Wall thickness is normal. The left ventricular systolic function is severely reduced with an estimated ejection fraction in th e range of 20-25%. There is global left ventricular dysfunction, apical akinesis. RIGHT VENTRICLE The right ventricle was not well visualized. A pacemaker wire is noted. LEFT ATRIUM The left atrial size is moderately dilated. RIGHT ATRIUM The right atrium is not well visualized. ATRIAL SEPTUM Normal atrial septal thickness AORTA The aortic root and proximal ascending aorta are normal in size on limited imaging. MITRAL VALVE Structurally normal mitral valve. Moderate mitral valve regurgitation. The mitral valve regurgitation jet is directed centrally due to poor leaflet coaptation. No mitral valve stenosis. AORTIC VALVE Grossly normal. No aortic valve stenosis or regurgitation. TRICUSPID VALVE Grossly normal There is mild tricuspid valve regurgitation. There is estimated moderate pulmonary hypertension present (range 50-60 mmHg). PULMONARY VALVE No pulmonary valve regurgitation or stenosis. VESSELS The inferior vena cava is dilated. PERICARDIUM No pericardial effusion. Jeffry Hernández DO (Electronically Signed) Final Date:23 March 2018 18:53
[2018-03-23] MEDS ORDERED: Morphine Sulfate Inj 2 MG/ML Vial IV.PUSH SCH (19:00)
--- NOTE | 2018-03-23 20:41 | P.PCN ---
Date of procedure: 03/23/18 Procedure: Date: 03/23/18 Procedure: Synchronized cardioversion with procedural sedation Indication: Wide-complex tachycardia Details of procedure: Patient consented to procedure following discussion of risks, benefits, alternatives. Signed consent is on the chart. Patient was on continuous telemetry and pulse oximetry with serial BP monitoring. She was preoxygenated with 100% nonrebreather. She was administered fentanyl 100 mcg IV and Versed 2 mg IV for sedation. Pads were placed in anterior posterior position. She underwent synchronized cardioversion with 50 J biphasic. She converted to paced rhythm with rate in the 60s.
--- NOTE | 2018-03-23 20:41 | P.PCN ---
Date of procedure: 03/23/18 Procedure: Date: 03/23/18 Procedure: Synchronized cardioversion, procedural sedation Indication: Recurrent Wide-complex tachycardia Details of procedure: Details of procedure: Initial cardioversion was successful but patient had recurrent wide-complex tachycardia. Signed consent is on the chart. Patient was on continuous telemetry and pulse oximetry with serial BP monitoring. She was on 100% nonrebreather. She had previously received fentanyl 100 mcg IV and Versed 2 mg IV for sedation and was still sedated. Pads were placed in anterior posterior position. She underwent synchronized cardioversion with 50 J biphasic. She converted to paced rhythm with rate in the 60s. She was administered Narcan 0.4 mg IV. She was subsequently alert and responsive.
--- NOTE | 2018-03-23 22:56 | P.PCN ---
Date of procedure: 03/23/18 Procedure: Date: 03/23/18 Procedure: Attempted chemical cardioversion followed by Synchronized external DC cardioversion Indication: Recurrent Wide-complex tachycardia Details of procedure: Patient experienced recurrent wide-complex tachycardia. Administered adenosine 6 mg IV, adenosine 12 mg IV, adenosine 12 mg IV without response. Administered Versed 2 mg IV. Patient was on continuous telemetry and pulse oximetry with serial BP monitoring. She was placed on 100% nonrebreather. Pads were placed in anterior posterior position. She underwent synchronized cardioversion with 50 J biphasic. She converted to paced rhythm with rate in the 60s.
[2018-03-23] MEDS ORDERED: Naloxone Inj 0.4 MG/ML Vial ONE (23:09)
[2018-03-24] MEDS ORDERED: DEXTROSE ONE (00:43)
[2018-03-24] MEDS ORDERED: LIDOCAINE ONE (00:43)
[2018-03-24 05:55] LABS: Hematocrit 38.7 % (35.0-46.0); Hemoglobin 13.2 gm/dL (11.6-15.3); Mean Corpuscular Hemoglobin 31.5 pg (27.0-34.0); Mean Corpuscular Volume 92.7 fL (80.0-100.0); Mean Platelet Volume 10.1 fL (7.0-11.0); Platelet Count 199 th/mm3 (150-450); Red Blood Count 4.17 mil/mm3 (4.00-5.30); Red Cell Distribution Width 15.2 % (11.6-17.2); White Blood Count 11.3 th/mm3 (4.0-11.0)
[2018-03-24 06:05] LABS: INR 4.6 Ratio
--- NOTE | 2018-03-24 06:16 | XR ---
EXAM DATE: 03/24/2018 5:46 AM EST AGE/SEX: 62 years / Female INDICATIONS: Respiratory disease. CLINICAL DATA: This is the patient's subsequent encounter. Patient reports that signs and symptoms h ave been present for 4 - 6 days and indicates a pain score of 0/10. MEDICAL/SURGICAL HISTORY: Stroke. Coronary artery disease. CABG. Pacemaker. COMPARISON: C, CHEST 1V SINGLE AP, 03/22/2018. . FINDINGS: Bilateral mostly basilar airspace disease is relatively able.. No new infiltrate. No pneumothorax. Pr evious sternotomy with pacer leads unchanged. CONCLUSION: Bilateral mostly basilar airspace disease with small effusions. No significant change from February 27. Electronically signed by: Alexi Bucio MD 03/24/2018 6:15 AM EST
[2018-03-24 06:19] LABS: Anion Gap 8 meq/L (5-15); Aspartate Aminotransferase 17 U/L (15-37); Blood Urea Nitrogen 20 mg/dL (7-18); Calcium 8.7 mg/dL (8.5-10.1); Carbon Dioxide 23.1 meq/L (21.0-32.0); Chloride 108 meq/L (98-107); Glomerular Filtration Rate 63 mL/min (>89); Glucose,Random 94 mg/dL (74-106); Magnesium 2.1 mg/dL (1.5-2.5); Potassium 3.6 meq/L (3.5-5.1); Sodium 139 meq/L (136-145)
[2018-03-24 06:24] LABS: Alanine Aminotransferase 12 U/L (10-53); Alkaline Phosphatase 61 U/L (45-117)
--- NOTE | 2018-03-24 06:39 | ECG ---
Date Performed: 03/23/2018 Time Performed: 08:25:08 PTAGE: 62 years EKG: Sinus rhythm Left axis deviation Extensive IVCD Left ventricular hypertrophy Abnormal ECG NO PREVIOUS TRACING DOCTOR: Anant Prince Interpretating Date/Time 03/24/2018 06:37:17
[2018-03-24] MEDS ORDERED: Amiodarone Inj 150 MG in Dextrose 5% in Water Inj 97 ML IV.SIG ONE ×2 (06:45)
--- NOTE | 2018-03-24 06:48 | ECG ---
Date Performed: 03/22/2018 Time Performed: 20:48:30 PTAGE: 62 years EKG: Wide Complex Tachycardia Rightward axis Extensive ST elevation, CONSIDER ACUTE INFARCT Tall T waves - consider acute ischemia or hyperkalemia Abnormal ECG PREVIOUS TRACING : 03/20/2018 12.05 DOCTOR: Anant Prince Interpretating Date/Time 03/24/2018 06:46:27
[2018-03-24] MEDS ORDERED: Potassium Chloride Inj 20 MEQ/10 ML Vial IV.SIG ONE (06:51)
[2018-03-24] MEDS ORDERED: Potassium Chloride 25 MEQ Effervescent Tablet PO ONE (06:52)
[2018-03-24] MEDS ORDERED: Magnesium Sulfate Inj 2 GM in Sodium Chlor 0.9% Inj 96 ML IV.SIG ONE (06:52)
[2018-03-24] MEDS ORDERED: Lidocaine 2% 100 MG/5 ML Syringe IV.PUSH ONE (06:52)
[2018-03-24] MEDS ORDERED: Potassium Phosphate 500 MG Soluble Tablet PO PRN ×2 (06:54)
[2018-03-24] MEDS ORDERED: Magnesium Sulfate Inj 4 GM in Sodium Chlor 0.9% Inj 92 ML IV.SIG PRN (06:54)
[2018-03-24] MEDS ORDERED: Potassium Chloride 25 MEQ Effervescent Tablet PO PRN (06:54)
[2018-03-24] MEDS ORDERED: Sodium Phosphate Inj 30 MMOL in Sodium Chlor 0.9% Inj 250 ML IV.SIG PRN (06:54)
[2018-03-24] MEDS ORDERED: Dextrose 50% in Water 50 ML Vial IV.PUSH PRN (06:54)
[2018-03-24] MEDS ORDERED: Potassium Phosphate Inj 30 MMOL in Sodium Chlor 0.9% Inj 250 ML IV.SIG PRN (06:54)
[2018-03-24] MEDS ORDERED: Potassium Chlor 40 mEq Premix 40 MEQ/100 ML PIGGYBACK IV.SIG PRN ×2 (06:54)
[2018-03-24] MEDS ORDERED: Magnesium Sulfate Inj 2 GM in Sodium Chlor 0.9% Inj 96 ML IV.SIG PRN (06:54)
[2018-03-24] MEDS ORDERED: Magnesium Oxide 400 MG Tablet PO PRN (06:54)
[2018-03-24] MEDS ORDERED: Potassium Chlor 20 mEq Premix 20 MEQ/100 ML PIGGYBACK IV.SIG PRN (06:54)
[2018-03-24] MEDS ORDERED: Lidocaine/D5W 2000 mg/500 mL 2,000 MG/500 ML BAG IV.CONT SCH (07:00)
--- NOTE | 2018-03-24 07:10 | P.PNCC ---
Subjective Subjective Remarks/Hospital Course: History is was obtained from patient and review of EMR. She is a somewhat difficult historian who has extensive past medical history but is has difficulty describing the details of it. 62 yo female with past medical history of coronary artery disease with prior CABG, on chronic anticoagulation with warfarin for history of paroxysmal atrial fibrillation (per her report), hyperlipidemia, chronic systolic heart failure with pacemaker and defibrillator in place ~10 years, ongoing tobacco abuse, history of alcohol abuse in remission, prior stroke. She presented to [facility] ED on 03/20 with chief complaint of substernal chest pain. EKG demonstrated wide-complex tachycardia with rate of 136. STEMI alert was called due to lateral ST deviation. She was taken emergently to labor relations representative by Dr. Stein where she underwent bare metal stent to proximal LAD, ultimately diagnosed with NSTEMI. Per cardiology verbal report, EF was low, ~30-35%. Following the procedure, she experienced improvement in chest pain. However, she remained tachycardic despite cardizem drip, amiodarone drip (started 03/20) , metoprolol total 15 mg IV bolus (overnight 03/21 and chair trimmer 03/22), digoxin 500 mcg IV 03/20 and 250 mcg IV 03/22 ~16:00 and 125 mcg IV 03/22 18: 28. Reportedly, the afternoon of 03/22 she was hypotensive and cardizem was placed on hold. She was given 1 L NS bolus (per [employer] CONTAIN[employer] STRAIGHT[employer] report). She was given lidocaine bolus [address] Stein and started on lidocaine 1 mg/min. Device rep has been contacted to interrogate device and Dr. Stein has consulted Dr. Mitchell for possible ZURDO and cardioversion. Critical care medicine has been consulted to follow patient in order to intervene expeditiously in the event she becomes unstable. Patient states she does not have any CP, SOB, or palpitations. She does say she is "afraid to move much" because her chest pain prior to coming to the hospital was worse with exertion and she doesn't want it to start again. She does not have much appetite, is nauseous, but has not had vomiting or diaphoresis. She does have frontal headache that started around 4 pm. She indicates that she has had exertional CP and SOB for "several months " and perhaps even 1-2 years prior to seeking medical attention. She does not feel that her symptoms are acutely worse tonight. SUBJ 03/23: Patient is lying in bed, appears somewhat anxious. Heart rate remains 130-135, regular. EKG shows wide complex tachycardia. Currently on amiodarone and lidocaine. To me it appears like SVT with aberrancy, but no response to AV murali blockers. I do not see any evidence of preexcitation on EKG. Will attempt adenosine 6 mg if no response, followed by 12 mg IV push. Discussed with Dr. Stein who is agreeable with the plan 03/24: cardioverted 3 times overnight for v. tach. each time was back into sinus /paced rhythm for a few hours, but went back into wide-complex tachycardia. this morning, went back into WCT at around 6:30am. have ordered repeat amiodarone bolus, increase drip rate back to 1mg/min, added lidocaine drip back , aggressively replaced electrolytes. Objective Vital Signs / I&O: Vital Signs 03/23/18 07:00 03/23/18 07:25 03/23/18 08:00 Temperature 36.6 C Pulse Rate 132 H Respiratory Rate 24 Blood Pressure 110/86 Pulse Oximetry 97 98 98 03/23/18 08:08 03/23/18 09:00 03/23/18 09:25 Temperature Pulse Rate 74 132 H Respiratory Rate Blood Pressure Pulse Oximetry 97 03/23/18 11:00 03/23/18 12:00 03/23/18 15:00 Temperature 36.9 C 37.1 C Pulse Rate 131 H 131 H 132 H Respiratory Rate 24 24 Blood Pressure 98/56 L 118/88 Pulse Oximetry 97 95 03/23/18 16:00 03/23/18 18:00 03/23/18 18:50 Temperature Pulse Rate 132 H 132 H Respiratory Rate 24 Blood Pressure 132/88 Pulse Oximetry 98 99 03/23/18 21:19 03/23/18 23:00 03/24/18 03:00 Temperature 36.2 C L 36.5 C Pulse Rate 69 68 Respiratory Rate 20 20 Blood Pressure 91/62 L 103/57 L Pulse Oximetry 96 99 97 Intake & Output 03/23/18 03/23/18 03/24/18 06:59 18:59 06:59 Intake Total 200 / 200 245 / 245 600 / 600 Output Total 800 / 800 600 / 600 300 / 300 Balance -600 / -600 -355 / -355 300 / 300 Weight 66 kg Intake: IV 125 / 125 600 / 600 Cardizem Inj 125 MG In NS Inj 125 / 125 100 / 100 100 ML @ 5 MG/HR 5 mls/hr IV. CONT TITRATE PRN Rx#:[id number] Oral 200 / 200 120 / 120 Output: Urine 800 / 800 300 / 300 Urine Amount (Catheter) 600 / 600 0 / 0 Female External 600 / 600 0 / 0 Other: # Voids 3 1 Date of Last Bowel Movement 03/19/18 03/19/18 03/19/18 Result Diagrams: 03/24/18 03:39 03/24/18 03:39 Objective Remarks: GENERAL: middle-aged patient who is sitting up in CVICU bed, alert, mildly anxious SKIN: Warm and dry. HEAD: Atraumatic. Normocephalic. EYES: Pupils equal and round. No scleral icterus. No injection or drainage. ENT: No nasal bleeding or discharge. NECK: Trachea midline. CARDIOVASCULAR: Tachycardic, regular, rate in the 130s wide-complex tachycardia. RESPIRATORY: Mildly tachypneic but without accessory muscle use on 4 L nasal cannula GASTROINTESTINAL: Abdomen soft, non-tender, nondistended. MUSCULOSKELETAL: Extremities without clubbing, cyanosis, or edema. NEUROLOGICAL: Awake and alert. No obvious cranial nerve deficits. Motor grossly within normal limits. Normal speech. Assessment and Plan - Problem List (1) NSTEMI (non-ST elevated myocardial infarction) Code(s): I21.4 - Non-ST elevation (NSTEMI) myocardial infarction Status: Acute (2) Chronic systolic heart failure Code(s): I50.22 - Chronic systolic (congestive) heart failure Status: Chronic (3) Artificial cardiac pacemaker Code(s): Z95.0 - Presence of cardiac pacemaker Status: Chronic (4) AICD (automatic cardioverter/defibrillator) present Code(s): Z95.810 - Presence of automatic (implantable) cardiac defibrillator Status: Chronic (5) CAD (coronary artery disease) Code(s): I25.10 - Atherosclerotic heart disease of [place] coronary artery without angina pectoris Status: Chronic (6) Tobacco abuse Code(s): Z72.0 - Tobacco use Status: Chronic - Assessment and Plan Plan: Assessment: 62yF with history of CAD and ischemic cardiomyopathy, now with NSTEMI s/p BMS to proximal LAD on 03/20, course here has been complicated by wide-complex tachycardia which has been refractory to medical and electrical intervention. appreciate Dr. Mitchell and EP assistance. may require EP study to further evaluate. for now will restart lidocaine, increase amiodarone, aggressively replace electrolytes. Systolic function severely depressed, and BNP elevated- likely needs ongoing diuresis in the setting of recent LV ischemia and poor function. Remains critically ill with active myocardial dysfunction requiring immediate intervention. NEURO: Prior history of alcohol dependence in remission for many years Prior history of stroke Tylenol as needed for headache RESP: Tobacco abuse Tobacco cessation counseling discussed. aggressive pulmonary toilet PT consult wean o2 for goal spo2 > 90% CV: Wide-complex tachycardia- persistent, refractory Probable ventricular tachycardia vs. SVT with aberrancy NSTEMI Bare-metal stent proximal LAD 11 (Dr. Juan David Stein) Coronary disease Chronic systolic heart failure- acute symptoms beginning Patient has had WCT with rate 130-140 since admission despite multiple AV murali blocking agents. Dr. Mitchell to see today s/p synchronized cardioversion x 3 03/[address] Estrada On warfarin, Plavix and aspirin (triple therapy per cardiology). continue Coreg 3.125 mg po bid. no response to 5 mg IV push of metoprolol 03/23 Continue lisinopril [address] Stein following. Dr. Mitchell to see 03/24. kcl 65 meq, mgso4 2gm replacement. restart lidocaine drip rebolus amiodarone increase amiodarone drip to 1mg/min GI: NPO at midnight for possible procedure FEN/RENAL: Replace electrolytes as indicated. Creatinine has been normal. lasix 40mg iv x 1- clinically developing CHF symptoms ID: Monitor for signs and symptoms of infection HEME: Monitor CBC ENDO: Checked TSH, is WNL. start SSI q6h PROPH: SCD and therapeutic INR provide DVT prophylaxis. Stress ulcer prophylaxis is not indicated. ACCESS: Peripheral IV is providing adequate access. Critically ill with recurrent wide complex tachycardia requiring immediate intervention to prevent further cardiac decompensation. Critical care time: 39 minutes, exclusive of separately billable procedures.
--- NOTE | 2018-03-24 07:56 | MB ---
cc: Bri Mitchell MD DATE: 03/23/2018 REASON FOR CONSULTATION: Tachyarrhythmia. HISTORY OF PRESENT ILLNESS: Mrs. Cook is a 62-year-old female with a history of CVA, coronary artery disease, coronary artery bypass grafting around 10 years ago, previous defibrillator implanted. 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 She was admitted due to non-ST elevation MA on 03/20/2018. Left heart catheterization was performed by Dr. Stein. There is no need for revascularization. Ejection fraction is close to 30%. Subsequently, the patient continued in wide complex tachyarrhythmia. The patient has a left bundle branch baseline. The chart was reviewed. The patient was evaluated. I discussed the case with the critical care doctor. ALLERGIES: None. SOCIAL HISTORY: The patient is a smoker, drinks occasionally. FAMILY HISTORY: Noncontributory to her current medical condition. MEDICATIONS: Currently she is on amiodarone. She is on aspirin. She is on Lipitor 40 mg a day. She is on Coreg 6.25 mg twice a day. She is on Plavix. She was on digoxin, but that was discontinued. REVIEW OF SYSTEMS: Currently, the patient refers no chest pain, some palpitations, shortness of breath. No vomiting. No fever. PHYSICAL EXAMINATION: GENERAL: Alert, fully oriented. VITAL SIGNS: Blood pressure currently is 118/88, pulse 132, respiratory rate 20. LUNGS: Ventilated. CARDIOVASCULAR: S1, S2, tachycardic. ABDOMEN: Soft. No masses. EXTREMITIES: No edema. LABORATORY DATA: Electrocardiogram at baseline indicates sinus rhythm, right bundle branch block, interventricular conduction delay, diffuse ST changes. Echocardiogram on tachyarrhythmia indicates a right inferior axis is positive in leads II, III, aVF and also the configuration of V6 is positive. This is clearly ventricular tachycardia. ASSESSMENT AND RECOMMENDATIONS: Mrs. Cook is currently stable. Heart rate is high since this morning. Evaluation of the echocardiogram shows clearly a ventricular tachycardia until proven otherwise. She will need to be cardioverted. She has a defibrillator. She does not remember the last time she was interrogated. Most likely, she is running a slow ventricular tachycardia below detection rate. I did administer 100 mg IV lidocaine. Lidocaine drip initiated. If the patient does not respond very well and we do cardioversion and back into ventricular tachycardia, then ablation will be considered. For now, medical management. Case discussed with the patient and the managing team. MD ROME Brennan/rw/do , 06:07 PM , 06:20 PM
[2018-03-24] MEDS ORDERED: Esmolol Bolus Inj 100 MG/10 ML Vial IV.PUSH ONE (09:00)
[2018-03-24] MEDS: dilTIAZem Inj 125 MG in Sodium Chlor 0.9% Inj 100 ML IV.CONT PRN (09:04)
[2018-03-24] MEDS ORDERED: Phenylephrine Inj 40 MG in Dextrose 5% in Water Inj 496 ML IV.CONT PRN ×2 (09:52)
[2018-03-24] MEDS: Carvedilol 12.5 MG Tablet PO SCH ×2 (12:11→21:21)
[2018-03-24] MEDS: Ramipril 2.5 MG Capsule PO SCH (12:11)
[2018-03-24] MEDS: Insulin NovoLIN Regular Correctional Sugar Inj SQ SCH ×2 (12:11→19:32)
[2018-03-24] MEDS: Potassium Chlor 20 mEq Premix 20 MEQ/100 ML PIGGYBACK IV.SIG SCH ×2 (14:36→17:37)
--- NOTE | 2018-03-24 15:01 | P.PNCA ---
Subjective Interval history: alert in nad Medications and Allergies Active Medications: Active Medications Acetaminophen (Tylenol) 650 mg PO Q4H PRN PRN Reason: Headache, fever, pain 1-4 Last Admin: 03/22/18 18:58 Dose: 650 mg Aspirin (Aspirin Chew) 81 mg PO DAILY [facility] Last Admin: 03/24/18 12:09 Dose: 81 mg Atorvastatin Calcium (Lipitor) 40 mg PO HS [facility] Last Admin: 03/23/18 21:35 Dose: 40 mg Carvedilol (Coreg) 12.5 mg PO BID [facility] Last Admin: 03/24/18 12:11 Dose: Not Given Clopidogrel Bisulfate (Plavix) 75 mg PO DAILY [facility] Last Admin: 03/24/18 12:08 Dose: 75 mg Dextrose (D50w Vial) 50 ml IV.PUSH UNSCH PRN PRN Reason: PER HYPOGLYCEMIA PROTOCOL Glucagon (Glucagon Inj) 1 mg OTHER PRN PRN PRN Reason: for Hypoglycemia Protocol Diltiazem HCl 125 mg/ Sodium (Chloride) 125 mls @ 5 mls/hr IV.CONT TITRATE PRN ; Protocol PRN Reason: Per Protocol Last Admin: 03/24/18 09:04 Dose: 15 mg/hr, 15 mls/hr Amiodarone HCl 450 mg/ (Dextrose) 250 mls @ 33.33 mls/hr IV.CONT CONT [facility] Last Admin: 03/24/18 09:03 Dose: 1 mg/min, 33.33 mls/hr Lidocaine HCl/Dextrose (Lidocaine/D5w 2000 Mg/500 Ml Premix Inj) 2,000 mg in 500 mls @ 30 mls/hr IV.CONT .[id number] [facility] Last Admin: 03/24/18 09:06 Dose: 2 mg/min, 30 mls/hr Magnesium Sulfate 4 gm/ Sodium (Chloride) 100 mls @ 50 mls/hr IV.SIG UNSCH PRN PRN Reason: For Magnesium 0.9 - 1.1 mg/dL Magnesium Sulfate 2 gm/ Sodium (Chloride) 100 mls @ 50 mls/hr IV.SIG UNSCH PRN PRN Reason: For Magnesium 1.2 - 1.6 mg/dL Potassium Chloride (Kcl 40 Meq Premix Inj) 40 meq in 100 mls @ 25 mls/hr IV.SIG Q2H PRN PRN Reason: For Potassium 2.8 - 3.2 mEq/L Potassium Chloride (Kcl 20 Meq Premix Inj) 20 meq in 100 mls @ 50 mls/hr IV.SIG Q2H PRN PRN Reason: For Potassium 3.3 - 3.5 mEq/L Potassium Chloride (Kcl 40 Meq Premix Inj) 40 meq in 100 mls @ 25 mls/hr IV.SIG UNSCH PRN PRN Reason: For Potassium 3.3 - 3.5 mEq/L Potassium Chloride (Kcl 20 Meq Premix Inj) 20 meq in 100 mls @ 50 mls/hr IV.SIG Q2H PRN PRN Reason: For Potassium 2.8 - 3.2 mEq/L Potassium Phosphate 30 mmol/ (Sodium Chloride) 260 mls @ 42 mls/hr IV.SIG UNSCH PRN PRN Reason: SEE LABEL COMMENTS Sodium Phosphate 30 mmol/ (Sodium Chloride) 260 mls @ 42 mls/hr IV.SIG UNSCH PRN PRN Reason: For Phosphorus < 2.5 mg/dL Phenylephrine HCl 40 mg/ (Dextrose) 500 mls @ 30 mls/hr IV.CONT TITRATE PRN; Protocol PRN Reason: Per Protocol Last Titration: 03/24/18 13:00 Dose: 10 mcg/min, 7.5 mls/hr Insulin Human Regular (Novolin R Correctional Sugar Inj) 0 units SQ Q6HR [facility]; Protocol Last Admin: 03/24/18 12:11 Dose: Not Given Magnesium Oxide (Mag-Ox) 800 mg PO UNSCH PRN PRN Reason: For Magnesium 1.2 - 1.6 mg/dL Pharmacy Profile Note (Coumadin Consult Pharmacy) 1 each OTHER UNSCH PRN PRN Reason: PHARMACY DOCUMENTATION Potassium Bicarb/Potassium Chloride (K-Lyte Cl Eff) 50 meq PO UNSCH PRN PRN Reason: For Potassium 3.3 - 3.5 mEq/L Potassium Phosphate (K-Phos Original) 2,000 mg PO UNSCH PRN PRN Reason: SEE LABEL COMMENTS Potassium Phosphate (K-Phos Original) 2,000 mg PO Q4H PRN PRN Reason: Phosphorus Less Than 2.5 mg/dL Ramipril (Altace) 2.5 mg PO DAILY [facility] Last Admin: 03/24/18 12:11 Dose: Not Given Sodium Chloride (Ns Flush) 2 ml IV.FLUSH BID [facility] Last Admin: 03/24/18 12:09 Dose: 2 ml Sodium Chloride (Ns Flush) 2 ml IV.FLUSH PRN PRN PRN Reason: FLUSH AFTER USING IV ACCESS Last Admin: 03/23/18 22:39 Dose: 2 ml Terbutaline Sulfate (Brethine Inj) 1 mg SQ UNSCH PRN PRN Reason: For Extravasation Warfarin Sodium (Coumadin) 5 mg PO DAILY@1600 [facility] Last Admin: 03/21/18 17:06 Dose: 5 mg Allergies Allergy/AdvReac Type Severity Reaction Status Date / Time No Known Allergies Allergy Verified 03/20/18 12:05 Physical Exam Vital signs: Vital Signs 03/23/18 15:00 03/23/18 16:00 03/23/18 18:00 Temperature 98.8 F Pulse Rate 132 H 132 H 132 H Respiratory Rate 24 24 Blood Pressure 118/88 132/88 Pulse Oximetry 95 98 03/23/18 18:50 03/23/18 19:00 03/23/18 21:19 Temperature Pulse Rate 50 L Respiratory Rate Blood Pressure Pulse Oximetry 99 96 03/23/18 23:00 03/24/18 03:00 03/24/18 07:00 Temperature 97.2 F L 97.7 F 97.8 F Pulse Rate 130 H 70 122 H Respiratory Rate 20 20 20 Blood Pressure 91/62 L 103/57 L 111/69 Pulse Oximetry 99 97 98 03/24/18 08:00 03/24/18 09:33 03/24/18 11:00 Temperature 97.6 F Pulse Rate 122 H 69 Respiratory Rate 26 H Blood Pressure 106/66 Pulse Oximetry 97 95 03/24/18 12:00 Temperature Pulse Rate 69 Respiratory Rate Blood Pressure Pulse Oximetry Intake & Output 03/23/18 03/24/18 03/24/18 18:59 06:59 18:59 Intake Total 245 / 245 700 / 700 Output Total 600 / 600 300 / 300 Balance -355 / -355 400 / 400 Weight 66 kg Intake: IV 125 / 125 700 / 700 Cardizem Inj 125 MG In NS Inj 125 / 125 200 / 200 100 ML @ 5 MG/HR 5 mls/hr IV. CONT TITRATE PRN Rx#:[id number] Oral 120 / 120 Output: Urine 300 / 300 Urine Amount (Catheter) 600 / 600 0 / 0 Female External 600 / 600 0 / 0 Other: # Voids 1 Date of Last Bowel Movement 03/19/18 03/19/18 - Constitutional no acute distress - Routine HEENT Exam Head: Present: normocephalic - Routine Neck Exam Present: supple - Routine Respiratory Exam Present: CTA bilaterally - Routine Cardiovascular Exam Present: S1, S2 - Routine Abdominal Exam Present: soft - Routine Extremities Exam Comments: no ramón - Urinary Catheter Management Female External Cath placed during this visit: yes Reason for continuing: Not indwelling catheter Insertion date: 03/23/18 Insertion time: 03:00 Results 03/24/18 03:39 03/24/18 03:39 Cardiac Enzymes 03/23/18 03/24/18 Range/Units 08:58 03:39 AST 33 17 (15-37) U/L Coagulation 03/23/18 03/24/18 Range/Units 04:12 03:39 PT 42.7 H D 46.0 H (9.8-11.6) sec CBC 03/24/18 Range/Units 03:39 WBC 11.3 H (4.0-11.0) th/mm3 RBC 4.17 (4.00-5.30) mil/mm3 Hgb 13.2 (11.6-15.3) gm/dL Hct 38.7 (35.0-46.0) % Plt Count 199 (150-450) th/mm3 Comprehensive Metabolic Panel 03/22/18 03/23/18 03/24/18 Range/Units 20:11 08:58 03:39 Sodium 139 137 139 (136-145) meq/L Potassium 3.9 4.3 3.6 (3.5-5.1) meq/L Chloride 111 H 106 108 H (98-107) meq/L Carbon Dioxide 19.4 L 21.8 23.1 (21.0-32.0) meq/L BUN 9 12 20 H (7-18) mg/dL Creatinine 0.86 0.94 0.91 (0.50-1.00) mg/dL Calcium 8.0 L 8.6 8.7 (8.5-10.1) mg/dL AST 33 17 (15-37) U/L ALT 18 12 (10-53) U/L Alkaline Phosphatase 66 61 (45-117) U/L Total Protein 7.5 D 7.0 (6.4-8.2) g/dL Albumin 3.4 3.0 L (3.4-5.0) g/dL Intake and Output 03/23/18 03/24/18 03/24/18 22:59 06:59 14:59 Intake Total 220 / 220 600 / 600 Output Total 600 / 600 300 / 300 Balance -380 / -380 300 / 300 Intake: IV 100 / 100 600 / 600 Cardizem Inj 125 MG In NS Inj 100 / 100 100 / 100 100 ML @ 5 MG/HR 5 mls/hr IV. CONT TITRATE PRN Rx#:[id number] Oral 120 / 120 Output: Urine 300 / 300 Urine Amount (Catheter) 600 / 600 0 / 0 Female External 600 / 600 0 / 0 Other: # Voids 1 Date of Last Bowel Movement 03/19/18 03/19/18 Weight 66 kg - Imaging and Cardiology Imaging: Impressions Chest X-Ray 03/22/18 20:02 CONCLUSION: Mild patchy consolidation and small effusions developing/worsening of both bases. Chest X-Ray 03/24/18 06:00 CONCLUSION: Bilateral mostly basilar airspace disease with small effusions. No significant change from March 22. Assessment and Plan - Assessment (1) NSTEMI (non-ST elevated myocardial infarction) Code(s): I21.4 - Non-ST elevation (NSTEMI) myocardial infarction Status: Acute (2) CAD (coronary artery disease) Code(s): I25.10 - Atherosclerotic heart disease of [place] coronary artery without angina pectoris Status: Chronic (3) Cardiomyopathy Code(s): I42.9 - Cardiomyopathy, unspecified Status: Acute (4) Tobacco abuse Code(s): Z72.0 - Tobacco use Status: Chronic (5) Atrial fibrillation Code(s): I48.91 - Unspecified atrial fibrillation Status: Acute - Plan 1.) CAD - pod #4 bms prox lad, assymptomatic, continue aspirin and plavix 2.) wide complex tachycardia - av paced on monitor today, continue coumadin, continue amio and lidocaine drip, per Dr Mitchell 03/23/18; d/w Dr Morrison 03/23/18 3.) Cardiomyopathy - continue coreg, f/u bnp.
[2018-03-24] MEDS: Esmolol 2,500 mg/250 mL Premix 2,500 MG/250 ML BAG IV.CONT PRN (17:36)
[2018-03-25] MEDS: Insulin NovoLIN Regular Correctional Sugar Inj SQ SCH ×4 (00:44→17:13)
[2018-03-25 05:05] LABS: Hematocrit 35.4 % (35.0-46.0); Hemoglobin 12.2 gm/dL (11.6-15.3); Mean Corpuscular HGB Conc 34.5 % (32.0-36.0); Mean Corpuscular Hemoglobin 31.1 pg (27.0-34.0); Mean Corpuscular Volume 90.1 fL (80.0-100.0); Platelet Count 230 th/mm3 (150-450); Red Blood Count 3.92 mil/mm3 (4.00-5.30); Red Cell Distribution Width 15.3 % (11.6-17.2); White Blood Count 11.9 th/mm3 (4.0-11.0)
[2018-03-25] MEDS: Esmolol 2,500 mg/250 mL Premix 2,500 MG/250 ML BAG IV.CONT PRN ×2 (05:14→18:31)
[2018-03-25 05:18] LABS: INR 4.7 Ratio; Prothrombin Time 46.8 sec (9.8-11.6)
[2018-03-25 05:31] LABS: Calcium 8.2 mg/dL (8.5-10.1); Carbon Dioxide 23.2 meq/L (21.0-32.0); Potassium 4.3 meq/L (3.5-5.1)
[2018-03-25] MEDS ORDERED: Potassium Chloride 25 MEQ Effervescent Tablet PO ONE (05:52)
[2018-03-25] MEDS ORDERED: Magnesium Sulfate Inj 2 GM in Sodium Chlor 0.9% Inj 96 ML IV.SIG ONE (05:53)
--- NOTE | 2018-03-25 05:55 | P.PNCC ---
Subjective Subjective Remarks/Hospital Course: History is was obtained from patient and review of EMR. She is a somewhat difficult historian who has extensive past medical history but is has difficulty describing the details of it. 62 yo female with past medical history of coronary artery disease with prior CABG, on chronic anticoagulation with warfarin for history of paroxysmal atrial fibrillation (per her report), hyperlipidemia, chronic systolic heart failure with pacemaker and defibrillator in place ~10 years, ongoing tobacco abuse, history of alcohol abuse in remission, prior stroke. She presented to [facility] on 03[facility]20 with chief complaint of substernal chest pain. EKG demonstrated wide-complex tachycardia with rate of 136. STEMI alert was called due to lateral ST deviation. She was taken emergently to organic lab worker by Dr. Stein where she underwent bare metal stent to proximal LAD, ultimately diagnosed with NSTEMI. Per cardiology verbal report, EF was low, ~30-35%. Following the procedure, she experienced improvement in chest pain. However, she remained tachycardic despite cardizem drip, amiodarone drip (started 03/20) , metoprolol total 15 mg IV bolus (overnight 03/21 and inspector wreath 03/22), digoxin 500 mcg IV 03/20 and 250 mcg IV 03/22 ~16:00 and 125 mcg IV 03/22 18: 28. Reportedly, the afternoon of 03/22 she was hypotensive and cardizem was placed on hold. She was given 1 L NS bolus (per [facility] report). She was given lidocaine bolus [address] Stein and started on lidocaine 1 mg/min. Device rep has been contacted to interrogate device and Dr. Stein has consulted Dr. Mitchell for possible ZURDO and cardioversion. Critical care medicine has been consulted to follow patient in order to intervene expeditiously in the event she becomes unstable. Patient states she does not have any CP, SOB, or palpitations. She does say she is "afraid to move much" because her chest pain prior to coming to the hospital was worse with exertion and she doesn't want it to start again. She does not have much appetite, is nauseous, but has not had vomiting or diaphoresis. She does have frontal headache that started around 4 pm. She indicates that she has had exertional CP and SOB for "several months " and perhaps even 1-2 years prior to seeking medical attention. She does not feel that her symptoms are acutely worse tonight. SUBJ 03/23: Patient is lying in bed, appears somewhat anxious. Heart rate remains 130-135, regular. EKG shows wide complex tachycardia. Currently on amiodarone and lidocaine. To me it appears like SVT with aberrancy, but no response to AV murali blockers. I do not see any evidence of preexcitation on EKG. Will attempt adenosine 6 mg if no response, followed by 12 mg IV push. Discussed with Dr. Stein who is agreeable with the plan 03/24: cardioverted 3 times overnight for v. tach. each time was back into sinus /paced rhythm for a few hours, but went back into wide-complex tachycardia. this morning, went back into WCT at around 6:30am. have ordered repeat amiodarone bolus, increase drip rate back to 1mg/min, added lidocaine drip back , aggressively replaced electrolytes. 02/22: did not diurese adequately yesterday. will increase lasix to achieve negative balance. went back into wide-complex tachycardia today. I have spoken with Dr. Mitchell and he will see the patient today. I do think the patient would benefit significantly from EP study, but will defer to Dr. Mitchell on this. again replaced electrolytes aggressively. Objective Vital Signs / I&O: Vital Signs 03/24/18 07:00 03/24/18 08:00 03/24/18 09:33 Temperature 36.6 C Pulse Rate 122 H 122 H Respiratory Rate 20 Blood Pressure 111/69 Pulse Oximetry 98 97 95 03/24/18 11:00 03/24/18 12:00 03/24/18 15:00 Temperature 36.4 C 36.6 C Pulse Rate 69 69 69 Respiratory Rate 26 H 24 Blood Pressure 106/66 124/75 Pulse Oximetry 98 03/24/18 16:00 03/24/18 20:00 03/24/18 20:30 Temperature 36.6 C Pulse Rate 69 69 Respiratory Rate 24 22 Blood Pressure 122/80 Pulse Oximetry 99 97 03/25/18 00:00 Temperature 36.4 C Pulse Rate 69 Respiratory Rate 22 Blood Pressure 115/72 Pulse Oximetry 96 Intake & Output 03/24/18 03/24/18 03/25/18 06:59 18:59 06:59 Intake Total 700 / 700 965 / 965 500 / 500 Output Total 300 / 300 800 / 800 Balance 400 / 400 165 / 165 500 / 500 Weight 66 kg Intake: IV 700 / 700 725 / 725 500 / 500 Cordarone Inj 450 MG In D5W Inj 500 / 500 250 / 250 241 ML @ 1 MG/MIN 33.33 mls/hr IV.CONT CONT [facility] Rx#:[id number] Brevibloc 2,500 mg/NS 250 mL 250 / 250 Premix 2,500 mg In 250 ml @ 50 MCG/KG/MIN 19.8 mls/hr IV.CONT TITRATE PRN Rx#:[id number] Cardizem Inj 125 MG In NS Inj 200 / 200 125 / 125 100 ML @ 5 MG/HR 5 mls/hr IV. CONT TITRATE PRN Rx#:[id number] KCl 20 mEq Premix Inj 20 meq In 100 / 100 100 ml @ 50 mls/hr IV.SIG Q2H [facility] Rx#:[id number] Oral 240 / 240 Output: Urine 300 / 300 800 / 800 Urine Amount (Catheter) 0 / 0 Female External 0 / 0 Other: # Voids 1 2 Date of Last Bowel Movement 03/19/18 03/19/18 03/19/18 Result Diagrams: 03/25/18 03:40 03/25/18 03:40 Objective Remarks: GENERAL: middle-aged patient who is sitting up in bed, alert SKIN: Warm and dry. HEAD: Atraumatic. Normocephalic. EYES: Pupils equal and round. No scleral icterus. No injection or drainage. ENT: No nasal bleeding or discharge. NECK: Trachea midline. CARDIOVASCULAR: Tachycardic, regular, rate in the 130s wide-complex tachycardia. RESPIRATORY: Mildly tachypneic but without accessory muscle use on 4 L nasal cannula GASTROINTESTINAL: Abdomen soft, non-tender, nondistended. MUSCULOSKELETAL: Extremities without clubbing, cyanosis, or edema. NEUROLOGICAL: Awake and alert. No obvious cranial nerve deficits. Motor grossly within normal limits. Normal speech. Assessment and Plan - Problem List (1) NSTEMI (non-ST elevated myocardial infarction) Code(s): I21.4 - Non-ST elevation (NSTEMI) myocardial infarction Status: Acute (2) Chronic systolic heart failure Code(s): I50.22 - Chronic systolic (congestive) heart failure Status: Chronic (3) Artificial cardiac pacemaker Code(s): Z95.0 - Presence of cardiac pacemaker Status: Chronic (4) AICD (automatic cardioverter/defibrillator) present Code(s): Z95.810 - Presence of automatic (implantable) cardiac defibrillator Status: Chronic (5) CAD (coronary artery disease) Code(s): I25.10 - Atherosclerotic heart disease of [place] coronary artery without angina pectoris Status: Chronic (6) Tobacco abuse Code(s): Z72.0 - Tobacco use Status: Chronic - Assessment and Plan Plan: Assessment: 62yF with history of CAD and ischemic cardiomyopathy, now with NSTEMI s/p BMS to proximal LAD on 03/20, course here has been complicated by wide-complex tachycardia which has been refractory to medical and electrical intervention. appreciate Dr. Mitchell and EP assistance. may require EP study to further evaluate. will allow Dr. Mitchell to guide anti-arrhythmic therapy. currently on amiodarone and esmolol infusions. continue aggressive electrolyte replacement and forced diuresis. NEURO: Prior history of alcohol dependence in remission for many years Prior history of stroke Tylenol as needed for headache RESP: Tobacco abuse Tobacco cessation counseling discussed. aggressive pulmonary toilet PT consult wean o2 for goal spo2 > 90% CV: Wide-complex tachycardia- persistent, refractory Probable ventricular tachycardia vs. SVT with aberrancy NSTEMI Bare-metal stent proximal LAD (Dr. Juan David Stein) Coronary disease Chronic systolic heart failure- acute symptoms beginning Patient has had WCT with rate 130-140 since admission despite multiple AV murali blocking agents. Dr. Mitchell to see again today. s/p synchronized cardioversion x 3 03/[address] Estrada On warfarin, Plavix and aspirin (triple therapy per cardiology). continue Coreg 3.125 mg po bid. no response to 5 mg IV push of metoprolol 03/23 Continue lisinopril [address] Stein following. Dr. Mitchell to see again today. continue amiodarone drip to 1mg/min continue esmolol drip per Dr. Mitchell. GI: cardiac diet as tolerated. FEN/RENAL: Replace electrolytes as indicated. Creatinine has been normal. increase lasix to 40mg iv BID ID: Monitor for signs and symptoms of infection HEME: Monitor CBC ENDO: Checked TSH, is WNL. SSI q6h PROPH: SCD and therapeutic INR provide DVT prophylaxis. Stress ulcer prophylaxis is not indicated. ACCESS: Peripheral IV is providing adequate access. remain in ICU. continues with wide-complex tachycardia.
[2018-03-25] MEDS: Ramipril 2.5 MG Capsule PO SCH (10:10)
[2018-03-25] MEDS: Carvedilol 12.5 MG Tablet PO SCH ×2 (10:11→21:14)
--- NOTE | 2018-03-25 14:29 | P.PNCA ---
Subjective Interval history: appears comfortable in nad, asymptomatic Medications and Allergies Active Medications: Active Medications Acetaminophen (Tylenol) 650 mg PO Q4H PRN PRN Reason: Headache, fever, pain 1-4 Last Admin: 03/22/18 18:58 Dose: 650 mg Aspirin (Aspirin Chew) 81 mg PO DAILY [facility] Last Admin: 03/25/18 10:10 Dose: 81 mg Atorvastatin Calcium (Lipitor) 40 mg PO HS [facility] Last Admin: 03/24/18 21:21 Dose: 40 mg Carvedilol (Coreg) 12.5 mg PO BID [facility] Last Admin: 03/25/18 10:11 Dose: 12.5 mg Clopidogrel Bisulfate (Plavix) 75 mg PO DAILY [facility] Last Admin: 03/25/18 10:11 Dose: 75 mg Dextrose (D50w Vial) 50 ml IV.PUSH UNSCH PRN PRN Reason: PER HYPOGLYCEMIA PROTOCOL Furosemide (Lasix Inj) 40 mg IV.PUSH BID@0900,1800 [facility] Last Admin: 03/25/18 10:11 Dose: 40 mg Glucagon (Glucagon Inj) 1 mg OTHER PRN PRN PRN Reason: for Hypoglycemia Protocol Amiodarone HCl 450 mg/ (Dextrose) 250 mls @ 33.33 mls/hr IV.CONT CONT [facility] Last Admin: 03/25/18 10:36 Dose: 1 mg/min, 33.33 mls/hr Magnesium Sulfate 4 gm/ Sodium (Chloride) 100 mls @ 50 mls/hr IV.SIG UNSCH PRN PRN Reason: For Magnesium 0.9 - 1.1 mg/dL Magnesium Sulfate 2 gm/ Sodium (Chloride) 100 mls @ 50 mls/hr IV.SIG UNSCH PRN PRN Reason: For Magnesium 1.2 - 1.6 mg/dL Potassium Chloride (Kcl 40 Meq Premix Inj) 40 meq in 100 mls @ 25 mls/hr IV.SIG Q2H PRN PRN Reason: For Potassium 2.8 - 3.2 mEq/L Potassium Chloride (Kcl 20 Meq Premix Inj) 20 meq in 100 mls @ 50 mls/hr IV.SIG Q2H PRN PRN Reason: For Potassium 3.3 - 3.5 mEq/L Potassium Chloride (Kcl 40 Meq Premix Inj) 40 meq in 100 mls @ 25 mls/hr IV.SIG UNSCH PRN PRN Reason: For Potassium 3.3 - 3.5 mEq/L Potassium Chloride (Kcl 20 Meq Premix Inj) 20 meq in 100 mls @ 50 mls/hr IV.SIG Q2H PRN PRN Reason: For Potassium 2.8 - 3.2 mEq/L Potassium Phosphate 30 mmol/ (Sodium Chloride) 260 mls @ 42 mls/hr IV.SIG UNSCH PRN PRN Reason: SEE LABEL COMMENTS Sodium Phosphate 30 mmol/ (Sodium Chloride) 260 mls @ 42 mls/hr IV.SIG UNSCH PRN PRN Reason: For Phosphorus < 2.5 mg/dL Phenylephrine HCl 40 mg/ (Dextrose) 500 mls @ 30 mls/hr IV.CONT TITRATE PRN; Protocol PRN Reason: Per Protocol Last Titration: 03/25/18 10:52 Dose: Infused Esmolol HCl (Brevibloc 2,500 Mg/Ns 250 Ml Premix) 2,500 mg in 250 mls @ 19.8 mls/hr IV.CONT TITRATE PRN; Protocol PRN Reason: Per Protocol Last Admin: 03/25/18 05:14 Dose: 50 mcg/kg/min, 19.8 mls/hr Insulin Human Regular (Novolin R Correctional Sugar Inj) 0 units SQ Q6HR [facility]; Protocol Last Admin: 03/25/18 13:01 Dose: Not Given Magnesium Oxide (Mag-Ox) 800 mg PO UNSCH PRN PRN Reason: For Magnesium 1.2 - 1.6 mg/dL Pharmacy Profile Note (Coumadin Consult Pharmacy) 1 each OTHER UNSCH PRN PRN Reason: PHARMACY DOCUMENTATION Potassium Bicarb/Potassium Chloride (K-Lyte Cl Eff) 50 meq PO UNSCH PRN PRN Reason: For Potassium 3.3 - 3.5 mEq/L Potassium Phosphate (K-Phos Original) 2,000 mg PO UNSCH PRN PRN Reason: SEE LABEL COMMENTS Potassium Phosphate (K-Phos Original) 2,000 mg PO Q4H PRN PRN Reason: Phosphorus Less Than 2.5 mg/dL Ramipril (Altace) 2.5 mg PO DAILY [facility] Last Admin: 03/25/18 10:10 Dose: 2.5 mg Sodium Chloride (Ns Flush) 2 ml IV.FLUSH BID [facility] Last Admin: 03/25/18 10:11 Dose: 2 ml Sodium Chloride (Ns Flush) 2 ml IV.FLUSH PRN PRN PRN Reason: FLUSH AFTER USING IV ACCESS Last Admin: 03/23/18 22:39 Dose: 2 ml Terbutaline Sulfate (Brethine Inj) 1 mg SQ UNSCH PRN PRN Reason: For Extravasation Warfarin Sodium (Coumadin) 5 mg PO DAILY@1600 [facility] Last Admin: 03/21/18 17:06 Dose: 5 mg Allergies Allergy/AdvReac Type Severity Reaction Status Date / Time No Known Allergies Allergy Verified 03/20/18 12:05 Physical Exam Vital signs: Vital Signs 03/24/18 15:00 03/24/18 16:00 03/24/18 20:00 Temperature 97.8 F 97.9 F Pulse Rate 69 69 69 Respiratory Rate 24 24 22 Blood Pressure 124/75 122/80 Pulse Oximetry 98 99 03/24/18 20:30 03/25/18 00:00 03/25/18 04:00 Temperature 97.6 F 97.6 F Pulse Rate 69 69 Respiratory Rate 22 24 Blood Pressure 115/72 129/78 Pulse Oximetry 97 96 98 03/25/18 07:00 03/25/18 08:00 03/25/18 10:24 Temperature 98.9 F 98.3 F Pulse Rate 69 69 69 Respiratory Rate 20 19 Blood Pressure 133/81 122/71 Pulse Oximetry 98 98 98 03/25/18 11:18 03/25/18 12:00 03/25/18 13:00 Temperature 98.0 F Pulse Rate 69 69 Respiratory Rate 21 26 H Blood Pressure 127/60 125/61 Pulse Oximetry 100 100 99 Intake & Output 03/24/18 03/25/18 03/25/18 18:59 06:59 18:59 Intake Total 965 / 965 900 / 900 1550 / 1550 Output Total 800 / 800 400 / 400 Balance 165 / 165 500 / 500 1550 / 1550 Weight 66 kg Intake: IV 725 / 725 500 / 500 1550 / 1550 Cordarone Inj 450 MG In D5W Inj 500 / 500 250 / 250 250 / 250 241 ML @ 1 MG/MIN 33.33 mls/hr IV.CONT CONT [facility] Rx#:[id number] Brevibloc 2,500 mg/NS 250 mL 250 / 250 Premix 2,500 mg In 250 ml @ 50 MCG/KG/MIN 19.8 mls/hr IV.CONT TITRATE PRN Rx#:[id number] Neosynephrine Inj 40 MG In D5W 500 / 500 Inj 496 ML @ 40 MCG/MIN 30 mls/ hr IV.CONT TITRATE PRN Rx#: [id number] Cardizem Inj 125 MG In NS Inj 125 / 125 100 ML @ 5 MG/HR 5 mls/hr IV. CONT TITRATE PRN Rx#:[id number] Magnesium Sulfate Inj 2 GM In 100 / 100 NS Inj 96 ML @ 50 mls/hr IV.SIG ONCE ONE Rx#:[id number] KCl 20 mEq Premix Inj 20 meq In 100 / 100 100 ml @ 50 mls/hr IV.SIG Q2H [facility] Rx#:[id number] Oral 240 / 240 400 / 400 Output: Urine 800 / 800 400 / 400 Other: # Voids 2 Date of Last Bowel Movement 03/19/18 03/19/18 03/25/18 # Bowel Movements 0 - Constitutional no acute distress - Routine HEENT Exam Head: Present: normocephalic - Routine Neck Exam Present: supple - Routine Respiratory Exam Present: CTA bilaterally - Routine Cardiovascular Exam Present: S1, S2 - Routine Abdominal Exam Present: soft - Routine Extremities Exam Comments: no ramón - Urinary Catheter Management Female External Cath placed during this visit: yes Reason for continuing: Not indwelling catheter Insertion date: 03/23/18 Insertion time: 03:00 Results 03/25/18 03:40 03/25/18 03:40 Cardiac Enzymes 03/24/18 03/25/18 Range/Units 03:39 03:40 AST 17 (15-37) U/L B-Natriuretic Peptide 581 H (0-100) pg/mL Coagulation 03/24/18 03/25/18 03/25/18 Range/Units 03:39 03:40 03:40 PT 46.0 H 46.8 H (9.8-11.6) sec B-Natriuretic Peptide 581 H (0-100) pg/mL CBC 03/24/18 03/25/18 Range/Units 03:39 03:40 WBC 11.3 H 11.9 H (4.0-11.0) th/mm3 RBC 4.17 3.92 L (4.00-5.30) mil/mm3 Hgb 13.2 12.2 (11.6-15.3) gm/dL Hct 38.7 35.4 (35.0-46.0) % Plt Count 199 230 (150-450) th/mm3 Comprehensive Metabolic Panel 03/24/18 03/25/18 Range/Units 03:39 03:40 Sodium 139 135 L (136-145) meq/L Potassium 3.6 4.3 (3.5-5.1) meq/L Chloride 108 H 106 (98-107) meq/L Carbon Dioxide 23.1 23.2 (21.0-32.0) meq/L BUN 20 H 19 H (7-18) mg/dL Creatinine 0.91 0.76 (0.50-1.00) mg/dL Calcium 8.7 8.2 L (8.5-10.1) mg/dL AST 17 (15-37) U/L ALT 12 (10-53) U/L Alkaline Phosphatase 61 (45-117) U/L Total Protein 7.0 (6.4-8.2) g/dL Albumin 3.0 L (3.4-5.0) g/dL Intake and Output 03/24/18 03/25/18 03/25/18 22:59 06:59 14:59 Intake Total 965 / 965 900 / 900 1550 / 1550 Output Total 800 / 800 400 / 400 Balance 165 / 165 500 / 500 1550 / 1550 Intake: IV 725 / 725 500 / 500 1550 / 1550 Cordarone Inj 450 MG In D5W Inj 500 / 500 250 / 250 250 / 250 241 ML @ 1 MG/MIN 33.33 mls/hr IV.CONT CONT [facility] Rx#:[id number] Brevibloc 2,500 mg/NS 250 mL 250 / 250 Premix 2,500 mg In 250 ml @ 50 MCG/KG/MIN 19.8 mls/hr IV.CONT TITRATE PRN Rx#:[id number] Neosynephrine Inj 40 MG In D5W 500 / 500 Inj 496 ML @ 40 MCG/MIN 30 mls/ hr IV.CONT TITRATE PRN Rx#: [id number] Cardizem Inj 125 MG In NS Inj 125 / 125 100 ML @ 5 MG/HR 5 mls/hr IV. CONT TITRATE PRN Rx#:[id number] Magnesium Sulfate Inj 2 GM In 100 / 100 NS Inj 96 ML @ 50 mls/hr IV.SIG ONCE ONE Rx#:[id number] KCl 20 mEq Premix Inj 20 meq In 100 / 100 100 ml @ 50 mls/hr IV.SIG Q2H [facility] Rx#:[id number] Oral 240 / 240 400 / 400 Output: Urine 800 / 800 400 / 400 Other: # Voids 2 Date of Last Bowel Movement 03/19/18 03/19/18 03/25/18 # Bowel Movements 0 Weight 66 kg - Imaging and Cardiology Imaging: Impressions Chest X-Ray 03/24/18 06:00 CONCLUSION: Bilateral mostly basilar airspace disease with small effusions. No significant change from March 22. Assessment and Plan - Assessment (1) NSTEMI (non-ST elevated myocardial infarction) Code(s): I21.4 - Non-ST elevation (NSTEMI) myocardial infarction Status: Acute (2) CAD (coronary artery disease) Code(s): I25.10 - Atherosclerotic heart disease of [place] coronary artery without angina pectoris Status: Chronic (3) Cardiomyopathy Code(s): I42.9 - Cardiomyopathy, unspecified Status: Acute (4) Tobacco abuse Code(s): Z72.0 - Tobacco use Status: Chronic (5) Atrial fibrillation Code(s): I48.91 - Unspecified atrial fibrillation Status: Acute - Plan 1.) CAD - pod #5 bms prox lad, assymptomatic, continue aspirin and plavix 2.) wide complex tachycardia - av paced on monitor today, continue coumadin, continue amio and lidocaine drip, per Dr Mitchell 03/23/18; d/w Dr Morrison 03/23/18 3.) Cardiomyopathy - continue coreg, diuresis, f/u bnp.
[2018-03-26] MEDS ORDERED: Sodium Glycerophosphate Inj 30 MMOL in Sodium Chlor 0.9% Inj 250 ML IV.SIG ONE ×2
[2018-03-26] MEDS: Insulin NovoLIN Regular Correctional Sugar Inj SQ SCH ×4 (01:15→18:09)
[2018-03-26 04:00] LABS: Hematocrit 37.3 % (35.0-46.0); Hemoglobin 13.1 gm/dL (11.6-15.3); Mean Corpuscular HGB Conc 35.1 % (32.0-36.0); Mean Corpuscular Hemoglobin 31.6 pg (27.0-34.0); Mean Platelet Volume 9.8 fL (7.0-11.0); Platelet Count 278 th/mm3 (150-450); Red Blood Count 4.15 mil/mm3 (4.00-5.30); Red Cell Distribution Width 15.1 % (11.6-17.2); White Blood Count 9.8 th/mm3 (4.0-11.0)
[2018-03-26 04:01] LABS: INR 2.1 Ratio; Prothrombin Time 21.1 sec (9.8-11.6)
[2018-03-26 04:17] LABS: Calcium 8.8 mg/dL (8.5-10.1); Carbon Dioxide 25.6 meq/L (21.0-32.0); Magnesium 1.8 mg/dL (1.5-2.5); Phosphorus 3.8 mg/dL (2.5-4.9); Potassium 3.6 meq/L (3.5-5.1)
[2018-03-26] MEDS: Esmolol 2,500 mg/250 mL Premix 2,500 MG/250 ML BAG IV.CONT PRN (06:10)
[2018-03-26] MEDS: Ramipril 2.5 MG Capsule PO SCH (09:00)
[2018-03-26] MEDS: Carvedilol 12.5 MG Tablet PO SCH ×2 (09:00→21:32)
--- NOTE | 2018-03-26 12:10 | P.PNCA ---
Subjective Interval history: alert in nad, assymptomatic Medications and Allergies Active Medications: Active Medications Acetaminophen (Tylenol) 650 mg PO Q4H PRN PRN Reason: Headache, fever, pain 1-4 Last Admin: 03/22/18 18:58 Dose: 650 mg Aspirin (Aspirin Chew) 81 mg PO DAILY [facility] Last Admin: 03/26/18 09:00 Dose: 81 mg Atorvastatin Calcium (Lipitor) 40 mg PO HS [facility] Last Admin: 03/25/18 21:14 Dose: 40 mg Carvedilol (Coreg) 12.5 mg PO BID [facility] Last Admin: 03/26/18 09:00 Dose: 12.5 mg Clopidogrel Bisulfate (Plavix) 75 mg PO DAILY [facility] Last Admin: 03/26/18 09:00 Dose: 75 mg Dextrose (D50w Vial) 50 ml IV.PUSH UNSCH PRN PRN Reason: PER HYPOGLYCEMIA PROTOCOL Furosemide (Lasix Inj) 40 mg IV.PUSH BID@0900,1800 [facility] Last Admin: 03/26/18 09:00 Dose: 40 mg Glucagon (Glucagon Inj) 1 mg OTHER PRN PRN PRN Reason: for Hypoglycemia Protocol Amiodarone HCl 450 mg/ (Dextrose) 250 mls @ 33.33 mls/hr IV.CONT CONT [facility] Last Admin: 03/26/18 03:09 Dose: 1 mg/min, 33.33 mls/hr Magnesium Sulfate 4 gm/ Sodium (Chloride) 100 mls @ 50 mls/hr IV.SIG UNSCH PRN PRN Reason: For Magnesium 0.9 - 1.1 mg/dL Magnesium Sulfate 2 gm/ Sodium (Chloride) 100 mls @ 50 mls/hr IV.SIG UNSCH PRN PRN Reason: For Magnesium 1.2 - 1.6 mg/dL Potassium Chloride (Kcl 40 Meq Premix Inj) 40 meq in 100 mls @ 25 mls/hr IV.SIG Q2H PRN PRN Reason: For Potassium 2.8 - 3.2 mEq/L Potassium Chloride (Kcl 20 Meq Premix Inj) 20 meq in 100 mls @ 50 mls/hr IV.SIG Q2H PRN PRN Reason: For Potassium 3.3 - 3.5 mEq/L Potassium Chloride (Kcl 40 Meq Premix Inj) 40 meq in 100 mls @ 25 mls/hr IV.SIG UNSCH PRN PRN Reason: For Potassium 3.3 - 3.5 mEq/L Potassium Chloride (Kcl 20 Meq Premix Inj) 20 meq in 100 mls @ 50 mls/hr IV.SIG Q2H PRN PRN Reason: For Potassium 2.8 - 3.2 mEq/L Potassium Phosphate 30 mmol/ (Sodium Chloride) 260 mls @ 42 mls/hr IV.SIG UNSCH PRN PRN Reason: SEE LABEL COMMENTS Sodium Phosphate 30 mmol/ (Sodium Chloride) 260 mls @ 42 mls/hr IV.SIG UNSCH PRN PRN Reason: For Phosphorus < 2.5 mg/dL Phenylephrine HCl 40 mg/ (Dextrose) 500 mls @ 30 mls/hr IV.CONT TITRATE PRN; Protocol PRN Reason: Per Protocol Last Titration: 03/25/18 10:52 Dose: Infused Esmolol HCl (Brevibloc 2,500 Mg/Ns 250 Ml Premix) 2,500 mg in 250 mls @ 19.8 mls/hr IV.CONT TITRATE PRN; Protocol PRN Reason: Per Protocol Last Admin: 03/26/18 06:10 Dose: 50 mcg/kg/min, 19.8 mls/hr Insulin Human Regular (Novolin R Correctional Sugar Inj) 0 units SQ Q6HR [facility]; Protocol Last Admin: 03/26/18 12:03 Dose: Not Given Magnesium Oxide (Mag-Ox) 800 mg PO UNSCH PRN PRN Reason: For Magnesium 1.2 - 1.6 mg/dL Pharmacy Profile Note (Coumadin Consult Pharmacy) 1 each OTHER UNSCH PRN PRN Reason: PHARMACY DOCUMENTATION Potassium Bicarb/Potassium Chloride (K-Lyte Cl Eff) 50 meq PO UNSCH PRN PRN Reason: For Potassium 3.3 - 3.5 mEq/L Potassium Phosphate (K-Phos Original) 2,000 mg PO UNSCH PRN PRN Reason: SEE LABEL COMMENTS Potassium Phosphate (K-Phos Original) 2,000 mg PO Q4H PRN PRN Reason: Phosphorus Less Than 2.5 mg/dL Ramipril (Altace) 2.5 mg PO DAILY [facility] Last Admin: 03/26/18 09:00 Dose: 2.5 mg Sodium Chloride (Ns Flush) 2 ml IV.FLUSH BID [facility] Last Admin: 03/26/18 09:01 Dose: 2 ml Sodium Chloride (Ns Flush) 2 ml IV.FLUSH PRN PRN PRN Reason: FLUSH AFTER USING IV ACCESS Last Admin: 03/23/18 22:39 Dose: 2 ml Terbutaline Sulfate (Brethine Inj) 1 mg SQ UNSCH PRN PRN Reason: For Extravasation Warfarin Sodium (Coumadin) 5 mg PO DAILY@1600 [facility] Last Admin: 03/21/18 17:06 Dose: 5 mg Allergies Allergy/AdvReac Type Severity Reaction Status Date / Time No Known Allergies Allergy Verified 03/20/18 12:05 Physical Exam Vital signs: Vital Signs 03/25/18 13:00 03/25/18 14:00 03/25/18 15:00 Temperature Pulse Rate 69 69 69 Respiratory Rate 26 H 26 H 21 Blood Pressure 125/61 107/61 108/59 L Pulse Oximetry 99 99 99 03/25/18 15:02 03/25/18 16:00 03/25/18 19:00 Temperature 97.6 F Pulse Rate 69 Respiratory Rate 20 Blood Pressure 119/62 Pulse Oximetry 99 99 100 03/25/18 20:00 03/25/18 22:00 03/25/18 23:31 Temperature 97.9 F Pulse Rate 69 69 Respiratory Rate 23 Blood Pressure 110/72 Pulse Oximetry 99 94 L 03/26/18 00:00 03/26/18 02:00 03/26/18 04:00 Temperature 98 F 97.7 F Pulse Rate 120 H 118 H 121 H Respiratory Rate 20 22 Blood Pressure 105/77 96/66 L Pulse Oximetry 97 97 03/26/18 06:00 03/26/18 07:58 03/26/18 08:00 Temperature 98.6 F Pulse Rate 69 69 Respiratory Rate 16 Blood Pressure 116/67 Pulse Oximetry 99 97 03/26/18 10:00 03/26/18 12:00 Temperature Pulse Rate 120 H 122 H Respiratory Rate Blood Pressure Pulse Oximetry Intake & Output 03/25/18 03/26/18 03/26/18 18:59 06:59 18:59 Intake Total 2450 / 2450 470 / 470 280 / 280 Output Total 1500 / 1500 900 / 900 Balance 950 / 950 -430 / -430 280 / 280 Weight 64.5 kg Intake: IV 2050 / 2050 250 / 250 280 / 280 Cordarone Inj 450 MG In D5W Inj 500 / 500 250 / 250 241 ML @ 1 MG/MIN 33.33 mls/hr IV.CONT CONT [facility] Rx#:[id number] Brevibloc 2,500 mg/NS 250 mL 250 / 250 Premix 2,500 mg In 250 ml @ 50 MCG/KG/MIN 19.8 mls/hr IV.CONT TITRATE PRN Rx#:[id number] Neosynephrine Inj 40 MG In D5W 500 / 500 Inj 496 ML @ 40 MCG/MIN 30 mls/ hr IV.CONT TITRATE PRN Rx#: [id number] Magnesium Sulfate Inj 2 GM In 100 / 100 NS Inj 96 ML @ 50 mls/hr IV.SIG ONCE ONE Rx#:[id number] Glycophos Inj 30 MMOL In NS Inj 280 / 280 250 ML @ 46.667 mls/hr IV.SIG ONCE ONE Rx#:[id number] Oral 400 / 400 220 / 220 Output: Urine 1500 / 1500 900 / 900 Other: Date of Last Bowel Movement 03/25/18 03/25/18 03/25/18 # Bowel Movements 2 - Constitutional no acute distress - Routine HEENT Exam Head: Present: normocephalic - Routine Neck Exam Present: supple - Routine Respiratory Exam Present: CTA bilaterally - Routine Cardiovascular Exam Present: S1, S2 - Routine Abdominal Exam Present: soft - Routine Extremities Exam Comments: no ramón - Urinary Catheter Management Female External Cath placed during this visit: yes Reason for continuing: Not indwelling catheter Insertion date: 03/23/18 Insertion time: 03:00 Results 03/26/18 02:40 03/26/18 02:40 Cardiac Enzymes 03/25/18 03/26/18 Range/Units 03:40 02:40 B-Natriuretic Peptide 581 H 554 H (0-100) pg/mL Coagulation 03/25/18 03/25/18 03/26/18 Range/Units 03:40 03:40 02:40 PT 46.8 H (9.8-11.6) sec B-Natriuretic Peptide 581 H 554 H (0-100) pg/mL 03/26/18 Range/Units 02:40 PT 21.1 H D (9.8-11.6) sec B-Natriuretic Peptide (0-100) pg/mL CBC 03/25/18 03/26/18 Range/Units 03:40 02:40 WBC 11.9 H 9.8 (4.0-11.0) th/mm3 RBC 3.92 L 4.15 (4.00-5.30) mil/mm3 Hgb 12.2 13.1 (11.6-15.3) gm/dL Hct 35.4 37.3 (35.0-46.0) % Plt Count 230 278 (150-450) th/mm3 Comprehensive Metabolic Panel 03/25/18 03/26/18 Range/Units 03:40 02:40 Sodium 135 L 137 (136-145) meq/L Potassium 4.3 3.6 (3.5-5.1) meq/L Chloride 106 101 (98-107) meq/L Carbon Dioxide 23.2 25.6 (21.0-32.0) meq/L BUN 19 H 22 H (7-18) mg/dL Creatinine 0.76 0.79 (0.50-1.00) mg/dL Calcium 8.2 L 8.8 (8.5-10.1) mg/dL Intake and Output 03/25/18 03/26/18 03/26/18 22:59 06:59 14:59 Intake Total 900 / 900 470 / 470 280 / 280 Output Total 1500 / 1500 900 / 900 Balance -600 / -600 -430 / -430 280 / 280 Intake: IV 500 / 500 250 / 250 280 / 280 Cordarone Inj 450 MG In D5W Inj 250 / 250 250 / 250 241 ML @ 1 MG/MIN 33.33 mls/hr IV.CONT CONT [facility] Rx#:[id number] Brevibloc 2,500 mg/NS 250 mL 250 / 250 Premix 2,500 mg In 250 ml @ 50 MCG/KG/MIN 19.8 mls/hr IV.CONT TITRATE PRN Rx#:[id number] Glycophos Inj 30 MMOL In NS Inj 280 / 280 250 ML @ 46.667 mls/hr IV.SIG ONCE ONE Rx#:[id number] Oral 400 / 400 220 / 220 Output: Urine 1500 / 1500 900 / 900 Other: Date of Last Bowel Movement 03/25/18 03/25/18 03/25/18 # Bowel Movements 2 Weight 64.5 kg Assessment and Plan - Assessment (1) NSTEMI (non-ST elevated myocardial infarction) Code(s): I21.4 - Non-ST elevation (NSTEMI) myocardial infarction Status: Acute (2) CAD (coronary artery disease) Code(s): I25.10 - Atherosclerotic heart disease of [place] coronary artery without angina pectoris Status: Chronic (3) Cardiomyopathy Code(s): I42.9 - Cardiomyopathy, unspecified Status: Acute (4) Tobacco abuse Code(s): Z72.0 - Tobacco use Status: Chronic (5) Atrial fibrillation Code(s): I48.91 - Unspecified atrial fibrillation Status: Acute - Plan 1.) CAD - pod #6 bms prox lad, assymptomatic, continue aspirin and plavix 2.) wide complex tachycardia - av paced on monitor today, continue coumadin, continue amio and lidocaine drip, per Dr Mitchell 03/23/18; d/w Dr Morrison 03/23/18 3.) Cardiomyopathy - continue coreg, diuresis, f/u bnp.
--- NOTE | 2018-03-26 17:17 | P.PNCC ---
Subjective Subjective Remarks/Hospital Course: History is was obtained from patient and review of EMR. She is a somewhat difficult historian who has extensive past medical history but is has difficulty describing the details of it. 62 yo female with past medical history of coronary artery disease with prior CABG, on chronic anticoagulation with warfarin for history of paroxysmal atrial fibrillation (per her report), hyperlipidemia, chronic systolic heart failure with pacemaker and defibrillator in place ~10 years, ongoing tobacco abuse, history of alcohol abuse in remission, prior stroke. She presented to [facility] on 03/20 with chief complaint of substernal chest pain. EKG demonstrated wide-complex tachycardia with rate of 136. STEMI alert was called due to lateral ST deviation. She was taken emergently to laborer cutting tool by Dr. Stein where she underwent bare metal stent to proximal LAD, ultimately diagnosed with NSTEMI. Per cardiology verbal report, EF was low, ~30-35%. Following the procedure, she experienced improvement in chest pain. However, she remained tachycardic despite cardizem drip, amiodarone drip (started 03/20) , metoprolol total 15 mg IV bolus (overnight 03/21 and property administrator 03/22), digoxin 500 mcg IV 03/20 and 250 mcg IV 03/22 ~16:00 and 125 mcg IV 03/22 18: 28. Reportedly, the afternoon of 03/22 she was hypotensive and cardizem was placed on hold. She was given 1 L NS bolus (per SUPERVISOR INDUSTRIAL GARMENT report). She was given lidocaine bolus [address] Stein and started on lidocaine 1 mg/min. Device rep has been contacted to interrogate device and Dr. Stein has consulted Dr. Mitchell for possible ZURDO and cardioversion. Critical care medicine has been consulted to follow patient in order to intervene expeditiously in the event she becomes unstable. Patient states she does not have any CP, SOB, or palpitations. She does say she is "afraid to move much" because her chest pain prior to coming to the hospital was worse with exertion and she doesn't want it to start again. She does not have much appetite, is nauseous, but has not had vomiting or diaphoresis. She does have frontal headache that started around 4 pm. She indicates that she has had exertional CP and SOB for "several months " and perhaps even 1-2 years prior to seeking medical attention. She does not feel that her symptoms are acutely worse tonight. SUBJ 03/23: Patient is lying in bed, appears somewhat anxious. Heart rate remains 130-135, regular. EKG shows wide complex tachycardia. Currently on amiodarone and lidocaine. To me it appears like SVT with aberrancy, but no response to AV murali blockers. I do not see any evidence of preexcitation on EKG. Will attempt adenosine 6 mg if no response, followed by 12 mg IV push. Discussed with Dr. Stein who is agreeable with the plan 03/24: cardioverted 3 times overnight for v. tach. each time was back into sinus /paced rhythm for a few hours, but went back into wide-complex tachycardia. this morning, went back into WCT at around 6:30am. have ordered repeat amiodarone bolus, increase drip rate back to 1mg/min, added lidocaine drip back , aggressively replaced electrolytes. 02/22: did not diurese adequately yesterday. will increase lasix to achieve negative balance. went back into wide-complex tachycardia today. I have spoken with Dr. Mitcehll and he will see the patient today. I do think the patient would benefit significantly from EP study, but will defer to Dr. Mitchell on this. again replaced electrolytes aggressively. 03/26: patient remained in WCT for 17 hours yesterday. spontaneously converted back to paced rhythm around 5:45am. NPO for possible EP study today. remains on esmolol infusion. patient asymptomatic today. wants to ambulate. Objective Vital Signs / I&O: Vital Signs 03/25/18 19:00 03/25/18 20:00 03/25/18 22:00 Temperature 36.6 C Pulse Rate 69 69 Respiratory Rate 23 Blood Pressure 110/72 Pulse Oximetry 100 99 03/25/18 23:31 03/26/18 00:00 03/26/18 02:00 Temperature 36.6 C Pulse Rate 120 H 118 H Respiratory Rate 20 Blood Pressure 105/77 Pulse Oximetry 94 L 97 03/26/18 04:00 03/26/18 06:00 03/26/18 07:58 Temperature 36.5 C Pulse Rate 121 H 69 Respiratory Rate 22 Blood Pressure 96/66 L Pulse Oximetry 97 99 03/26/18 08:00 03/26/18 10:00 03/26/18 12:00 Temperature 37.0 C 36.7 C Pulse Rate 69 120 H 122 H Respiratory Rate 16 17 Blood Pressure 116/67 114/75 Pulse Oximetry 97 99 03/26/18 14:00 Temperature Pulse Rate 69 Respiratory Rate Blood Pressure Pulse Oximetry Intake & Output 03/25/18 03/26/18 03/26/18 18:59 06:59 18:59 Intake Total 2450 / 2450 470 / 470 530 / 530 Output Total 1500 / 1500 900 / 900 Balance 950 / 950 -430 / -430 530 / 530 Weight 64.5 kg Intake: IV 2050 / 2050 250 / 250 530 / 530 Cordarone Inj 450 MG In D5W Inj 500 / 500 250 / 250 250 / 250 241 ML @ 1 MG/MIN 33.33 mls/hr IV.CONT CONT VANESSA Rx#:[id number] Brevibloc 2,500 mg/NS 250 mL 250 / 250 Premix 2,500 mg In 250 ml @ 50 MCG/KG/MIN 19.8 mls/hr IV.CONT TITRATE PRN Rx#:[id number] Neosynephrine Inj 40 MG In D5W 500 / 500 Inj 496 ML @ 40 MCG/MIN 30 mls/ hr IV.CONT TITRATE PRN Rx#: [id number] Magnesium Sulfate Inj 2 GM In 100 / 100 NS Inj 96 ML @ 50 mls/hr IV.SIG ONCE ONE Rx#:[id number] Glycophos Inj 30 MMOL In NS Inj 280 / 280 250 ML @ 46.667 mls/hr IV.SIG ONCE ONE Rx#:[id number] Oral 400 / 400 220 / 220 Output: Urine 1500 / 1500 900 / 900 Other: Date of Last Bowel Movement 03/25/18 03/25/18 03/25/18 # Bowel Movements 2 Result Diagrams: 03/26/18 02:40 03/26/18 02:40 Objective Remarks: GENERAL: middle-aged patient who is sitting up in bed, alert SKIN: Warm and dry. HEAD: Atraumatic. Normocephalic. EYES: Pupils equal and round. No scleral icterus. No injection or drainage. ENT: No nasal bleeding or discharge. NECK: Trachea midline. CARDIOVASCULAR: normal rate, paced rhythm. RESPIRATORY: Mildly tachypneic but without accessory muscle use on 4 L nasal cannula GASTROINTESTINAL: Abdomen soft, non-tender, nondistended. MUSCULOSKELETAL: Extremities without clubbing, cyanosis, or edema. NEUROLOGICAL: Awake and alert. No obvious cranial nerve deficits. Motor grossly within normal limits. Normal speech. Assessment and Plan - Problem List (1) NSTEMI (non-ST elevated myocardial infarction) Code(s): I21.4 - Non-ST elevation (NSTEMI) myocardial infarction Status: Acute (2) Chronic systolic heart failure Code(s): I50.22 - Chronic systolic (congestive) heart failure Status: Chronic (3) Artificial cardiac pacemaker Code(s): Z95.0 - Presence of cardiac pacemaker Status: Chronic (4) AICD (automatic cardioverter/defibrillator) present Code(s): Z95.810 - Presence of automatic (implantable) cardiac defibrillator Status: Chronic (5) CAD (coronary artery disease) Code(s): I25.10 - Atherosclerotic heart disease of [place] coronary artery without angina pectoris Status: Chronic (6) Tobacco abuse Code(s): Z72.0 - Tobacco use Status: Chronic - Assessment and Plan Plan: Assessment: 62yF with history of CAD and ischemic cardiomyopathy, now with NSTEMI s/p BMS to proximal LAD on 03/20, course here has been complicated by wide-complex tachycardia which has been refractory to medical and electrical intervention. appreciate Dr. Mitchell and EP assistance. may require EP study to further evaluate. continue aggressive electrolyte replacement and forced diuresis. NEURO: Prior history of alcohol dependence in remission for many years Prior history of stroke Tylenol as needed for headache RESP: Tobacco abuse Tobacco cessation counseling discussed. aggressive pulmonary toilet PT consult wean o2 for goal spo2 > 90% CV: Wide-complex tachycardia- persistent, refractory Probable ventricular tachycardia vs. SVT with aberrancy NSTEMI Bare-metal stent proximal LAD 11 (Dr. Juan David Stein) Coronary disease Chronic systolic heart failure- acute symptoms beginning Patient has had WCT with rate 130-140 since admission despite multiple AV murali blocking agents. Dr. Mitchell to see again today. s/p synchronized cardioversion x 3, 03/[address] Estrada On warfarin, Plavix and aspirin (triple therapy per cardiology). continue Coreg 3.125 mg po bid. no response to 5 mg IV push of metoprolol 03/23 Continue lisinopril [address] Stein following. Dr. Mitchell to see again today. continue amiodarone drip to 1mg/min continue esmolol drip per Dr. Mitchell. GI: cardiac diet as tolerated- currently NPO for possible procedure. FEN/RENAL: Replace electrolytes as indicated. Creatinine has been normal. lasix 40mg iv BID ID: Monitor for signs and symptoms of infection HEME: Monitor CBC ENDO: Checked TSH, is WNL. SSI q6h PROPH: SCD and therapeutic INR provide DVT prophylaxis. Stress ulcer prophylaxis is not indicated. ACCESS: Peripheral IV is providing adequate access. remain in ICU. continues with intermittent wide-complex tachycardia. cannot leave ICU until off AV murali blocking infusions and in a stable rhythm.
--- NOTE | 2018-03-26 17:38 | P.PN ---
Subjective Interval history: Doing ok Physical Exam Vital signs: Vital Signs 03/25/18 19:00 03/25/18 20:00 03/25/18 22:00 Temperature 97.9 F Pulse Rate 69 69 Respiratory Rate 23 Blood Pressure 110/72 Pulse Oximetry 100 99 03/25/18 23:31 03/26/18 00:00 03/26/18 02:00 Temperature 98 F Pulse Rate 120 H 118 H Respiratory Rate 20 Blood Pressure 105/77 Pulse Oximetry 94 L 97 03/26/18 04:00 03/26/18 06:00 03/26/18 07:58 Temperature 97.7 F Pulse Rate 121 H 69 Respiratory Rate 22 Blood Pressure 96/66 L Pulse Oximetry 97 99 03/26/18 08:00 03/26/18 10:00 03/26/18 12:00 Temperature 98.6 F 98.1 F Pulse Rate 69 120 H 122 H Respiratory Rate 16 17 Blood Pressure 116/67 114/75 Pulse Oximetry 97 99 03/26/18 14:00 03/26/18 16:00 Temperature Pulse Rate 69 69 Respiratory Rate Blood Pressure Pulse Oximetry Intake & Output 03/25/18 03/26/18 03/26/18 18:59 06:59 18:59 Intake Total 2450 / 2450 470 / 470 530 / 530 Output Total 1500 / 1500 900 / 900 Balance 950 / 950 -430 / -430 530 / 530 Weight 64.5 kg Intake: IV 2050 / 2050 250 / 250 530 / 530 Cordarone Inj 450 MG In D5W Inj 500 / 500 250 / 250 250 / 250 241 ML @ 1 MG/MIN 33.33 mls/hr IV.CONT CONT VANESSA Rx#:[id number] Brevibloc 2,500 mg/NS 250 mL 250 / 250 Premix 2,500 mg In 250 ml @ 50 MCG/KG/MIN 19.8 mls/hr IV.CONT TITRATE PRN Rx#:[id number] Neosynephrine Inj 40 MG In D5W 500 / 500 Inj 496 ML @ 40 MCG/MIN 30 mls/ hr IV.CONT TITRATE PRN Rx#: [id number] Magnesium Sulfate Inj 2 GM In 100 / 100 NS Inj 96 ML @ 50 mls/hr IV.SIG ONCE ONE Rx#:[id number] Glycophos Inj 30 MMOL In NS Inj 280 / 280 250 ML @ 46.667 mls/hr IV.SIG ONCE ONE Rx#:[id number] Oral 400 / 400 220 / 220 Output: Urine 1500 / 1500 900 / 900 Other: Date of Last Bowel Movement 03/25/18 03/25/18 03/25/18 # Bowel Movements 2 - Constitutional no acute distress - Routine HEENT Exam Head: Present: normocephalic Eye: Present: PERRL ENT: Present: mucous membranes moist - Routine Respiratory Exam Present: CTA bilaterally - Routine Cardiovascular Exam Present: RRR, S1, S2 - Routine Abdominal Exam Present: soft - Routine Extremities Exam Present: pulses intact, normal capillary refill - Routine Neurological Exam Present: alert, oriented X3 - Detailed Neurological Exam: Coma Scale Eye Opening: Spontaneous Verbal Response: Oriented Motor Response: Obey commands [place] Coma Scale Total: 15 - Urinary Catheter Management Female External Cath placed during this visit: yes Reason for continuing: Not indwelling catheter Insertion date: 03/23/18 Insertion time: 03:00 Results - Labs CBC & Chem 7: 03/26/18 02:40 03/26/18 02:40 Laboratory Results - last 24 hr 03/26/18 03/26/18 03/26/18 00:01 02:40 02:40 WBC RBC Hgb Hct MCV MCH MCHC RDW Plt Count MPV PT INR Sodium 137 Potassium 3.6 Chloride 101 Carbon Dioxide 25.6 Anion Gap 10 BUN 22 H Creatinine 0.79 Estimated GFR 74 L POC Glucose 110 Random Glucose 121 H Calcium 8.8 Phosphorus 3.8 D Magnesium 1.8 B-Natriuretic Peptide 554 H 03/26/18 03/26/18 03/26/18 02:40 02:40 05:12 WBC 9.8 RBC 4.15 Hgb 13.1 Hct 37.3 MCV 90.0 MCH 31.6 MCHC 35.1 RDW 15.1 Plt Count 278 MPV 9.8 PT 21.1 H D INR 2.1 Sodium Potassium Chloride Carbon Dioxide Anion Gap BUN Creatinine Estimated GFR POC Glucose 129 H Random Glucose Calcium Phosphorus Magnesium B-Natriuretic Peptide 03/26/18 11:57 WBC RBC Hgb Hct MCV MCH MCHC RDW Plt Count MPV PT INR Sodium Potassium Chloride Carbon Dioxide Anion Gap BUN Creatinine Estimated GFR POC Glucose 157 H Random Glucose Calcium Phosphorus Magnesium B-Natriuretic Peptide - Procedures Cardiac catheterization on 03/20/2018. Stent placed to proximal LAD. Assessment and Plan - Assessment (1) Ventricular tachycardia Code(s): I47.2 - Ventricular tachycardia Status: Acute Plan: On/ off episodes of ventricular tachycardia. In sinus rhythm A pacing V pacing On amio and esmolol Esmolol will be DC Metoprolol added EPS and VT ablation was scheduled for this afternoon. Anesthesia cancel the case because no provider available and OR very busy. Case discussed with patient ablation scheduled for tomorrow. V pacing 100% of the time. RV pacing may be one of the cause of VT Also may worsen CHF Patient will need to be BIV pacing Case discussed extensively with her She agrees to proceed (2) Atrial fibrillation Code(s): I48.91 - Unspecified atrial fibrillation Status: Acute Plan: In sinus rhythm (3) Cardiomyopathy Code(s): I42.9 - Cardiomyopathy, unspecified Status: Acute Plan: On optimal medical management
[2018-03-26] MEDS ORDERED: Metoprolol Tartrate 50 MG Tablet PO SCH (21:00)
[2018-03-27] MEDS: Insulin NovoLIN Regular Correctional Sugar Inj SQ SCH ×4 (01:17→19:33)
[2018-03-27 04:41] LABS: Hematocrit 40.3 % (35.0-46.0); Hemoglobin 13.9 gm/dL (11.6-15.3); Mean Corpuscular HGB Conc 34.4 % (32.0-36.0); Mean Corpuscular Hemoglobin 31.3 pg (27.0-34.0); Mean Corpuscular Volume 90.9 fL (80.0-100.0); Mean Platelet Volume 9.3 fL (7.0-11.0); Platelet Count 328 th/mm3 (150-450); Red Blood Count 4.44 mil/mm3 (4.00-5.30); Red Cell Distribution Width 15.2 % (11.6-17.2)
[2018-03-27 04:51] LABS: INR 1.2 Ratio; Prothrombin Time 11.7 sec (9.8-11.6)
[2018-03-27 05:04] LABS: Calcium 8.9 mg/dL (8.5-10.1); Carbon Dioxide 29.5 meq/L (21.0-32.0); Magnesium 1.6 mg/dL (1.5-2.5)
[2018-03-27 05:06] LABS: Phosphorus 3.7 mg/dL (2.5-4.9)
[2018-03-27] MEDS: Carvedilol 12.5 MG Tablet PO SCH ×2 (08:55→21:07)
[2018-03-27] MEDS: Ramipril 2.5 MG Capsule PO SCH (08:55)
[2018-03-27] MEDS: Potassium Chlor 20 mEq Premix 20 MEQ/100 ML PIGGYBACK IV.SIG PRN ×4 (08:58→21:08)
--- NOTE | 2018-03-27 15:20 | P.PNCC ---
Subjective Subjective Remarks/Hospital Course: History is was obtained from patient and review of EMR. She is a somewhat difficult historian who has extensive past medical history but is has difficulty describing the details of it. 62 yo female with past medical history of coronary artery disease with prior CABG, on chronic anticoagulation with warfarin for history of paroxysmal atrial fibrillation (per her report), hyperlipidemia, chronic systolic heart failure with pacemaker and defibrillator in place ~10 years, ongoing tobacco abuse, history of alcohol abuse in remission, prior stroke. She presented to [facility] on 03/20 with chief complaint of substernal chest pain. EKG demonstrated wide-complex tachycardia with rate of 136. STEMI alert was called due to lateral ST deviation. She was taken emergently to quality assurance/r&d lab technician by Dr. Stein where she underwent bare metal stent to proximal LAD, ultimately diagnosed with NSTEMI. Per cardiology verbal report, EF was low, ~30-35%. Following the procedure, she experienced improvement in chest pain. However, she remained tachycardic despite cardizem drip, amiodarone drip (started 03/20) , metoprolol total 15 mg IV bolus (overnight 03/21 and business management specialist 03/22), digoxin 500 mcg IV 03/20 and 250 mcg IV 03/22 ~16:00 and 125 mcg IV 03/22 18: 28. Reportedly, the afternoon of 03/22 she was hypotensive and cardizem was placed on hold. She was given 1 L NS bolus (per BISQUE CLEANER report). She was given lidocaine bolus [address] Stein and started on lidocaine 1 mg/min. Device rep has been contacted to interrogate device and Dr. Stein has consulted Dr. Mitchell for possible ZURDO and cardioversion. Critical care medicine has been consulted to follow patient in order to intervene expeditiously in the event she becomes unstable. Patient states she does not have any CP, SOB, or palpitations. She does say she is "afraid to move much" because her chest pain prior to coming to the hospital was worse with exertion and she doesn't want it to start again. She does not have much appetite, is nauseous, but has not had vomiting or diaphoresis. She does have frontal headache that started around 4 pm. She indicates that she has had exertional CP and SOB for "several months " and perhaps even 1-2 years prior to seeking medical attention. She does not feel that her symptoms are acutely worse tonight. SUBJ 03/23: Patient is lying in bed, appears somewhat anxious. Heart rate remains 130-135, regular. EKG shows wide complex tachycardia. Currently on amiodarone and lidocaine. To me it appears like SVT with aberrancy, but no response to AV murali blockers. I do not see any evidence of preexcitation on EKG. Will attempt adenosine 6 mg if no response, followed by 12 mg IV push. Discussed with Dr. Stein who is agreeable with the plan 03/24: cardioverted 3 times overnight for v. tach. each time was back into sinus /paced rhythm for a few hours, but went back into wide-complex tachycardia. this morning, went back into WCT at around 6:30am. have ordered repeat amiodarone bolus, increase drip rate back to 1mg/min, added lidocaine drip back , aggressively replaced electrolytes. 02/22: did not diurese adequately yesterday. will increase lasix to achieve negative balance. went back into wide-complex tachycardia today. I have spoken with Dr. Mitchell and he will see the patient today. I do think the patient would benefit significantly from EP study, but will defer to Dr. Mitchell on this. again replaced electrolytes aggressively. 03/26: patient remained in WCT for 17 hours yesterday. spontaneously converted back to paced rhythm around 5:45am. NPO for possible EP study today. remains on esmolol infusion. patient asymptomatic today. wants to ambulate. 03/27: unable to obtain EP study yesterday. NPO for study today. went back into WCT this morning in rate 130s. hemodynamically stable. awaiting further evaluation. resting comfortably. Objective Vital Signs / I&O: Vital Signs 03/26/18 16:00 03/26/18 17:00 03/26/18 18:00 Temperature 36.7 C Pulse Rate 69 69 120 H Respiratory Rate 25 H 20 56 H Blood Pressure 130/69 119/70 Pulse Oximetry 96 95 96 03/26/18 18:06 03/26/18 19:00 03/26/18 20:00 Temperature 36.6 C Pulse Rate 120 H 119 H 69 Respiratory Rate 34 H 19 19 Blood Pressure 110/78 116/75 103/59 L Pulse Oximetry 97 94 L 95 03/26/18 21:00 03/26/18 21:20 03/26/18 22:00 Temperature Pulse Rate 69 119 H 119 H Respiratory Rate 37 H 23 26 H Blood Pressure 129/59 L Pulse Oximetry 94 L 96 96 03/26/18 22:28 03/26/18 23:00 03/27/18 00:00 Temperature 35.7 C L Pulse Rate 123 H 118 H 69 Respiratory Rate 35 H 30 H 20 Blood Pressure 128/83 126/73 142/73 H Pulse Oximetry 95 91 L 03/27/18 01:00 03/27/18 02:00 03/27/18 03:00 Temperature Pulse Rate 69 118 H 116 H Respiratory Rate 19 15 16 Blood Pressure 126/70 96/70 L Pulse Oximetry 95 95 03/27/18 03:01 03/27/18 04:00 03/27/18 05:00 Temperature 36.4 C L Pulse Rate 116 H 119 H 121 H Respiratory Rate 20 19 15 Blood Pressure 113/62 106/63 137/86 Pulse Oximetry 95 95 96 03/27/18 06:00 03/27/18 07:00 03/27/18 08:00 Temperature 36.5 C Pulse Rate 119 H 119 H Respiratory Rate 19 18 Blood Pressure 114/84 150/106 H Pulse Oximetry 94 L 97 98 03/27/18 09:10 03/27/18 10:00 03/27/18 12:00 Temperature 36.5 C Pulse Rate 124 H 123 H Respiratory Rate 21 Blood Pressure 112/75 Pulse Oximetry 97 97 Intake & Output 03/26/18 03/27/18 03/27/18 18:59 06:59 18:59 Intake Total 1160 / 1160 500 / 500 350 / 350 Output Total 1400 / 1400 850 / 850 Balance -240 / -240 -350 / -350 350 / 350 Weight 61.1 kg Intake: IV 760 / 760 500 / 500 350 / 350 Cordarone Inj 450 MG In D5W Inj 250 / 250 500 / 500 250 / 250 241 ML @ 1 MG/MIN 33.33 mls/hr IV.CONT CONT VANESSA Rx#:[id number] Brevibloc 2,500 mg/NS 250 mL 230 / 230 Premix 2,500 mg In 250 ml @ 50 MCG/KG/MIN 19.8 mls/hr IV.CONT TITRATE PRN Rx#:[id number] KCl 20 mEq Premix Inj 20 meq In 100 / 100 100 ml @ 50 mls/hr IV.SIG Q2H PRN Rx#:[id number] Glycophos Inj 30 MMOL In NS Inj 280 / 280 250 ML @ 46.667 mls/hr IV.SIG ONCE ONE Rx#:[id number] Oral 400 / 400 Output: Urine 1400 / 1400 850 / 850 Urine Amount (Catheter) 0 / 0 Female External 0 / 0 Other: Date of Last Bowel Movement 03/25/18 03/25/18 03/25/18 # Bowel Movements 0 Result Diagrams: 03/27/18 04:09 03/27/18 04:09 Objective Remarks: GENERAL: middle-aged patient who is sitting up in bed, resting. SKIN: Warm and dry. HEAD: Atraumatic. Normocephalic. EYES: Pupils equal and round. No scleral icterus. No injection or drainage. ENT: No nasal bleeding or discharge. NECK: Trachea midline. CARDIOVASCULAR: normal rate, paced rhythm. RESPIRATORY: Resting comfortably on nasal cannula. equal chest rise. unlabored. GASTROINTESTINAL: Abdomen soft, non-tender, nondistended. MUSCULOSKELETAL: Extremities without clubbing, cyanosis, or edema. NEUROLOGICAL: resting comfortably. Assessment and Plan - Problem List (1) NSTEMI (non-ST elevated myocardial infarction) Code(s): I21.4 - Non-ST elevation (NSTEMI) myocardial infarction Status: Acute (2) Chronic systolic heart failure Code(s): I50.22 - Chronic systolic (congestive) heart failure Status: Chronic (3) Artificial cardiac pacemaker Code(s): Z95.0 - Presence of cardiac pacemaker Status: Chronic (4) AICD (automatic cardioverter/defibrillator) present Code(s): Z95.810 - Presence of automatic (implantable) cardiac defibrillator Status: Chronic (5) CAD (coronary artery disease) Code(s): I25.10 - Atherosclerotic heart disease of [place] coronary artery without angina pectoris Status: Chronic (6) Tobacco abuse Code(s): Z72.0 - Tobacco use Status: Chronic (7) Wide-complex tachycardia Code(s): I47.2 - Ventricular tachycardia Status: Acute (8) History of stroke Code(s): Z86.73 - Personal history of transient ischemic attack (TIA), and cerebral infarction without residual deficits Status: Chronic (9) History of ETOH abuse Code(s): Z87.898 - Personal history of other specified conditions Status: Chronic - Assessment and Plan Plan: NEURO: Prior history of alcohol dependence in remission for many years Prior history of stroke Tylenol as needed for headache RESP: Tobacco abuse Tobacco cessation counseling discussed. CV: Wide-complex tachycardia NSTEMI Bare-metal stent proximal LAD 11 (Dr. Juan David Stein) Coronary disease Chronic systolic heart failure Patient has had WCT with rate 130-140 since admission despite multiple AV murali blocking agents. BP is normal. Rhythm is difficult to determine, could be atrial with aberrancy but with her prior cardiac history, right axis deviation, would need to presume V tach. On warfarin, Plavix and aspirin (triple therapy per cardiology). continue Coreg 3.125 mg po bid. Continue lisinopril 5 mg po daily. holding warfarin in the setting of EP study- will need to restart after EP study. Efforts at rate control with cardizem has been unsuccessful and may have contributed to hypotension, will continue to hold. Interrogate ICD. Dr. Stein following. Dr. Mitchell guiding anti-arrhythmic therapy EP study today. GI: NPO at midnight FEN/RENAL: Check electrolytes now and replace as indicated. Creatinine has been normal. ID: Monitor for signs and symptoms of infection peer HEME: Monitor CBC ENDO: Checked TSH, is WNL. PROPH: SCD and therapeutic INR provide DVT prophylaxis. Stress ulcer prophylaxis is not indicated. ACCESS: Peripheral IV is providing adequate access.
[2018-03-27] MEDS ORDERED: Phenylephrine/NS 1000 MCG/10ML Syringe IV.PUSH ONE (16:30)
[2018-03-27] MEDS ORDERED: Heparin/NS PF Inj 1,000 ML ONE (16:34)
[2018-03-27] MEDS ORDERED: Lidocaine 1% Inj 50 ML Vial ONE (16:34)
[2018-03-27] MEDS ORDERED: Heparin Drip 25,000 UNIT/250 ML BAG IV.CONT ONE (16:41)
[2018-03-27] MEDS ORDERED: Protamine Sulfate Inj 50 MG/5 ML Vial ONE (16:41)
[2018-03-27] MEDS ORDERED: Heparin 10,000 UNITS/10 ML Vial (for IV use) ONE (16:42)
[2018-03-27] MEDS ORDERED: Isoproterenol HCl Inj 0.2 MG/ML Ampul ONE (16:42)
[2018-03-27] MEDS ORDERED: fentaNYL Citrate Inj 100 MCG/2 ML Ampul ONE (16:43)
--- NOTE | 2018-03-27 17:07 | P.PNCA ---
Subjective Interval history: alert in nad Medications and Allergies Active Medications: Active Medications Acetaminophen (Tylenol) 650 mg PO Q4H PRN PRN Reason: Headache, fever, pain 1-4 Last Admin: 03/22/18 18:58 Dose: 650 mg Aspirin (Aspirin Chew) 81 mg PO DAILY [facility] Last Admin: 03/27/18 08:55 Dose: 81 mg Atorvastatin Calcium (Lipitor) 40 mg PO HS [facility] Last Admin: 03/26/18 21:32 Dose: 40 mg Carvedilol (Coreg) 12.5 mg PO BID [facility] Last Admin: 03/27/18 08:55 Dose: 12.5 mg Clopidogrel Bisulfate (Plavix) 75 mg PO DAILY [facility] Last Admin: 03/27/18 08:55 Dose: Not Given Dextrose (D50w Vial) 50 ml IV.PUSH UNSCH PRN PRN Reason: PER HYPOGLYCEMIA PROTOCOL Furosemide (Lasix Inj) 40 mg IV.PUSH BID@0900,1800 [facility] Last Admin: 03/27/18 08:55 Dose: 40 mg Glucagon (Glucagon Inj) 1 mg OTHER PRN PRN PRN Reason: for Hypoglycemia Protocol Amiodarone HCl 450 mg/ (Dextrose) 250 mls @ 33.33 mls/hr IV.CONT CONT [facility] Last Admin: 03/27/18 12:30 Dose: 1 mg/min, 33.33 mls/hr Magnesium Sulfate 4 gm/ Sodium (Chloride) 100 mls @ 50 mls/hr IV.SIG UNSCH PRN PRN Reason: For Magnesium 0.9 - 1.1 mg/dL Magnesium Sulfate 2 gm/ Sodium (Chloride) 100 mls @ 50 mls/hr IV.SIG UNSCH PRN PRN Reason: For Magnesium 1.2 - 1.6 mg/dL Potassium Chloride (Kcl 40 Meq Premix Inj) 40 meq in 100 mls @ 25 mls/hr IV.SIG Q2H PRN PRN Reason: For Potassium 2.8 - 3.2 mEq/L Potassium Chloride (Kcl 20 Meq Premix Inj) 20 meq in 100 mls @ 50 mls/hr IV.SIG Q2H PRN PRN Reason: For Potassium 3.3 - 3.5 mEq/L Potassium Chloride (Kcl 40 Meq Premix Inj) 40 meq in 100 mls @ 25 mls/hr IV.SIG UNSCH PRN PRN Reason: For Potassium 3.3 - 3.5 mEq/L Potassium Chloride (Kcl 20 Meq Premix Inj) 20 meq in 100 mls @ 50 mls/hr IV.SIG Q2H PRN PRN Reason: For Potassium 2.8 - 3.2 mEq/L Last Admin: 03/27/18 15:23 Dose: 50 mls/hr Potassium Phosphate 30 mmol/ (Sodium Chloride) 260 mls @ 42 mls/hr IV.SIG UNSCH PRN PRN Reason: SEE LABEL COMMENTS Sodium Phosphate 30 mmol/ (Sodium Chloride) 260 mls @ 42 mls/hr IV.SIG UNSCH PRN PRN Reason: For Phosphorus < 2.5 mg/dL Phenylephrine HCl 40 mg/ (Dextrose) 500 mls @ 30 mls/hr IV.CONT TITRATE PRN; Protocol PRN Reason: Per Protocol Last Titration: 03/25/18 10:52 Dose: Infused Insulin Human Regular (Novolin R Correctional Sugar Inj) 0 units SQ Q6HR VANESSA; Protocol Last Admin: 03/27/18 11:58 Dose: Not Given Magnesium Oxide (Mag-Ox) 800 mg PO UNSCH PRN PRN Reason: For Magnesium 1.2 - 1.6 mg/dL Pharmacy Profile Note (Coumadin Consult Pharmacy) 1 each OTHER UNSCH PRN PRN Reason: PHARMACY DOCUMENTATION Potassium Bicarb/Potassium Chloride (K-Lyte Cl Eff) 50 meq PO UNSCH PRN PRN Reason: For Potassium 3.3 - 3.5 mEq/L Potassium Phosphate (K-Phos Original) 2,000 mg PO UNSCH PRN PRN Reason: SEE LABEL COMMENTS Potassium Phosphate (K-Phos Original) 2,000 mg PO Q4H PRN PRN Reason: Phosphorus Less Than 2.5 mg/dL Ramipril (Altace) 2.5 mg PO DAILY [facility] Last Admin: 03/27/18 08:55 Dose: 2.5 mg Sodium Chloride (Ns Flush) 2 ml IV.FLUSH BID [facility] Last Admin: 03/27/18 08:56 Dose: 2 ml Sodium Chloride (Ns Flush) 2 ml IV.FLUSH PRN PRN PRN Reason: FLUSH AFTER USING IV ACCESS Last Admin: 03/23/18 22:39 Dose: 2 ml Terbutaline Sulfate (Brethine Inj) 1 mg SQ UNSCH PRN PRN Reason: For Extravasation Warfarin Sodium (Coumadin) 5 mg PO DAILY@1600 [facility] Last Admin: 03/21/18 17:06 Dose: 5 mg Allergies Allergy/AdvReac Type Severity Reaction Status Date / Time No Known Allergies Allergy Verified 03/20/18 12:05 Physical Exam Vital signs: Vital Signs 03/26/18 18:00 03/26/18 18:06 03/26/18 19:00 Temperature Pulse Rate 120 H 120 H 119 H Respiratory Rate 56 H 34 H 19 Blood Pressure 110/78 116/75 Pulse Oximetry 96 97 94 L 03/26/18 20:00 03/26/18 21:00 03/26/18 21:20 Temperature 97.8 F Pulse Rate 69 69 119 H Respiratory Rate 19 37 H 23 Blood Pressure 103/59 L 129/59 L Pulse Oximetry 95 94 L 96 03/26/18 22:00 03/26/18 22:28 03/26/18 23:00 Temperature Pulse Rate 119 H 123 H 118 H Respiratory Rate 26 H 35 H 30 H Blood Pressure 128/83 126/73 Pulse Oximetry 96 95 91 L 03/27/18 00:00 03/27/18 01:00 03/27/18 02:00 Temperature 96.2 F L Pulse Rate 69 69 118 H Respiratory Rate 20 19 15 Blood Pressure 142/73 H 126/70 96/70 L Pulse Oximetry 95 03/27/18 03:00 03/27/18 03:01 03/27/18 04:00 Temperature 97.5 F L Pulse Rate 116 H 116 H 119 H Respiratory Rate 16 20 19 Blood Pressure 113/62 106/63 Pulse Oximetry 95 95 95 03/27/18 05:00 03/27/18 06:00 03/27/18 07:00 Temperature Pulse Rate 121 H 119 H Respiratory Rate 15 19 Blood Pressure 137/86 114/84 Pulse Oximetry 96 94 L 97 03/27/18 08:00 03/27/18 09:10 03/27/18 10:00 Temperature 97.7 F Pulse Rate 119 H 124 H Respiratory Rate 18 Blood Pressure 150/106 H Pulse Oximetry 98 97 03/27/18 12:00 03/27/18 14:00 Temperature 97.7 F Pulse Rate 123 H 119 H Respiratory Rate 21 Blood Pressure 112/75 Pulse Oximetry 97 Intake & Output 03/26/18 03/27/18 03/27/18 18:59 06:59 18:59 Intake Total 1160 / 1160 500 / 500 450 / 450 Output Total 1400 / 1400 850 / 850 Balance -240 / -240 -350 / -350 450 / 450 Weight 61.1 kg Intake: IV 760 / 760 500 / 500 450 / 450 Cordarone Inj 450 MG In D5W Inj 250 / 250 500 / 500 250 / 250 241 ML @ 1 MG/MIN 33.33 mls/hr IV.CONT CONT VANESSA Rx#:[id number] Brevibloc 2,500 mg/NS 250 mL 230 / 230 Premix 2,500 mg In 250 ml @ 50 MCG/KG/MIN 19.8 mls/hr IV.CONT TITRATE PRN Rx#:[id number] KCl 20 mEq Premix Inj 20 meq In 200 / 200 100 ml @ 50 mls/hr IV.SIG Q2H PRN Rx#:[id number] Glycophos Inj 30 MMOL In NS Inj 280 / 280 250 ML @ 46.667 mls/hr IV.SIG ONCE ONE Rx#:[id number] Oral 400 / 400 Output: Urine 1400 / 1400 850 / 850 Urine Amount (Catheter) 0 / 0 Female External 0 / 0 Other: Date of Last Bowel Movement 03/25/18 03/25/18 03/25/18 # Bowel Movements 0 - Constitutional no acute distress - Routine HEENT Exam Head: Present: normocephalic - Routine Neck Exam Present: supple - Routine Respiratory Exam Present: CTA bilaterally - Routine Cardiovascular Exam Present: S1, S2 - Routine Abdominal Exam Present: soft - Routine Extremities Exam Comments: no ramón - Urinary Catheter Management Female External Cath placed during this visit: yes Reason for continuing: Not indwelling catheter Insertion date: 03/23/18 Insertion time: 03:00 Results 03/27/18 04:09 03/27/18 04:09 Cardiac Enzymes 03/26/18 03/27/18 Range/Units 02:40 04:09 B-Natriuretic Peptide 554 H 762 H (0-100) pg/mL Coagulation 03/26/18 03/26/18 03/27/18 Range/Units 02:40 02:40 04:09 PT 21.1 H D 11.7 H (9.8-11.6) sec B-Natriuretic Peptide 554 H (0-100) pg/mL 03/27/18 Range/Units 04:09 PT (9.8-11.6) sec B-Natriuretic Peptide 762 H (0-100) pg/mL CBC 03/26/18 03/27/18 Range/Units 02:40 04:09 WBC 9.8 10.0 (4.0-11.0) th/mm3 RBC 4.15 4.44 (4.00-5.30) mil/mm3 Hgb 13.1 13.9 (11.6-15.3) gm/dL Hct 37.3 40.3 (35.0-46.0) % Plt Count 278 328 (150-450) th/mm3 Comprehensive Metabolic Panel 03/26/18 03/27/18 Range/Units 02:40 04:09 Sodium 137 136 (136-145) meq/L Potassium 3.6 3.0 L (3.5-5.1) meq/L Chloride 101 99 (98-107) meq/L Carbon Dioxide 25.6 29.5 (21.0-32.0) meq/L BUN 22 H 19 H (7-18) mg/dL Creatinine 0.79 0.82 (0.50-1.00) mg/dL Calcium 8.8 8.9 (8.5-10.1) mg/dL Intake and Output 03/27/18 03/27/18 03/27/18 06:59 14:59 22:59 Intake Total 250 / 250 450 / 450 Output Total 850 / 850 Balance -600 / -600 450 / 450 Intake: IV 250 / 250 450 / 450 Cordarone Inj 450 MG In D5W Inj 250 / 250 250 / 250 241 ML @ 1 MG/MIN 33.33 mls/hr IV.CONT CONT VANESSA Rx#:[id number] KCl 20 mEq Premix Inj 20 meq In 200 / 200 100 ml @ 50 mls/hr IV.SIG Q2H PRN Rx#:[id number] Output: Urine 850 / 850 Urine Amount (Catheter) 0 / 0 Female External 0 / 0 Other: Date of Last Bowel Movement 03/25/18 03/25/18 # Bowel Movements 0 Weight 61.1 kg Assessment and Plan - Assessment (1) NSTEMI (non-ST elevated myocardial infarction) Code(s): I21.4 - Non-ST elevation (NSTEMI) myocardial infarction Status: Acute (2) CAD (coronary artery disease) Code(s): I25.10 - Atherosclerotic heart disease of [place] coronary artery without angina pectoris Status: Chronic (3) Cardiomyopathy Code(s): I42.9 - Cardiomyopathy, unspecified Status: Acute (4) Tobacco abuse Code(s): Z72.0 - Tobacco use Status: Chronic (5) Atrial fibrillation Code(s): I48.91 - Unspecified atrial fibrillation Status: Acute - Plan 1.) CAD - pod #6 bms prox lad, assymptomatic, continue aspirin and plavix 2.) wide complex tachycardia - av paced on monitor today, continue coumadin, continue amio and lidocaine drip, per Dr Mitchell 03/23/18; d/w Dr Morrison 03/23/18 3.) Cardiomyopathy - continue coreg, diuresis, f/u bnp.
--- NOTE | 2018-03-27 18:26 | CATHPROC ---
Patient Name: Valery Cook Study #: [id number] Initial MD: Bri Mitchell Date of : 1955 Study Date: 03/27/2018 Cardiac Catheterization Report 03/27/2018 6:26:08 PM Financial #: [id number] 1 of 9 Patient Name: Valery Cook Study #: [id number] Initial MD: Bri Mitchell Date of : 1955 Study Date: 03/27/2018 Entire Case Report Patient Information Patient Name Valery Cook Date of 1955 Age 62 years Financial # [id number] Gender F AlternateID Lab Number 2 Room Number 502 Height (in) 64.0 Height (cm) 162.5 BSA 1.69 Weight (lbs) 141.9 Weight (kg) 64.5 Patient Address/Phone Number Home Address [facility] Home Phone Number [facility] [address] Study Information Study Number Admission Scheduled Start Study Start [id number] Mar 20 2018 12:31PM 03/27/2018 Mar 27 2018 4:07PM [place] [facility] Cardiac Pacer/ICD Admit Source Facility Department Other [facility] - Durable Medical Equipment Technician Physician and Clinical Staff Initial Bri Kenyon Furnace Installer Ashley Vega,NICOLETTE Other Anesthesia, SPARES SCHEDULER Recorder Julee Walls RN Recorder Ashley Vega,NICOLETTE Scrub Karen Chandler RCIS Procedures Performed Procedure Location (Site) Vessel Name Ablation Procedure ICE CATHETER INSERT RA Atruim RF Ablation LT. ATRIUM LT. ATRIUM 03/27/2018 6:26:08 PM Financial #: [id number] 2 of 9 Patient Name: Valery Cook Study #: [id number] Initial MD: Bri Mitchell Date of : 1955 Study Date: 03/27/2018 Equipment Time Crab Butcher Description Size Mfg Part Number Used/Scraped BIOSENSE INFANTE CATHETER, THERMOCOOL NON- [id number] 17:38 Used INC. YADIEL TC D-F *[id number] 18:12 [employer] VASCADE, FR5 CLOSURE SYSTEM FR 5 Used *[id number] 18:11 [employer] VASCADE, FR6 CLOSURE SYSTEM FR 6\7 Used *[id number] 18:11 [employer] VASCADE, FR6 CLOSURE SYSTEM FR 6\7 Used *[id number] 18:11 [employer] VASCADE, FR6 CLOSURE SYSTEM FR 6\7 Used *[id number] 17:09 CORDIS/PACER SHEATH, FR10 TYLER 11CM FR 10 Used *[id number] 17:27 CORDIS/PACER SHEATH, FR9 TYLER 11CM FR 9 [id number] Used [id number] 16:41 [employer] BLANKET,WARM AIR CCL * Used *[id number] 16:41 [employer] PACK, CCL CUSTOM * Used *[id number] 16:41 [employer] PACER CANALES, LIMB * 2530 *[id number] Used [id number]-[id number]- 17:28 [employer] CATHETER, HD GRID MAPPING Used [id number] 17:15 [employer] CATHETER, JSN, QUAD FR 5 Used *[id number] 17:21 [employer] CATHETER, JSN, QUAD FR 5 Used *[id number] 17:21 [employer] CATHETER, JSN, QUAD FR 5 Used *[id number] 16:41 [employer] ELECTRODE KIT, YADIEL X SURFACE * Used *[id number] 099829 17:11 [employer] SHEATH, EPS, FR5 FAST CATH FR 5 Used *[id number] 094704 17:09 [employer] SHEATH, EPS, FR6 FAST CATH FR 6 Used *5271677 719341 17:09 [employer] SHEATH, EPS, FR6 FAST CATH FR 6 Used *[id number] 502348 17:14 [employer] SHEATH, EPS, FR6 FAST CATH FR 6 Used *[id number] 17:09 [employer] SHEATH, EPS, FR7 FAST CATH FR 7 [id number] Used 394455 17:13 [employer] SHEATH, EPS, FR8 FAST CATH FR 8 Used *[id number] CATHETER, ACUNAV FR10 ICE [id number] 17:22 YAQUELIN FR 10 Used (YAQUELIN) *[id number] [facility] PAD, ELECTROSURGICAL 16:41 * [id number] *[id number] Used SURGICAL GROUNDING (BLUE) Insurance Information Insurance Payor Medicare Third Constitution Party Third Constitution Party Number MEDICARE A B MCRAB 03/27/2018 6:26:08 PM Financial #: [id number] 3 of 9 Patient Name: Valery Cook Study #: [id number] Initial MD: Bri Mitchell Date of : 1955 Study Date: 03/27/2018 History: Allergies Allergy Reaction No Known Allergies History: Risk Factors Hypertension Dyslipidemia Yes Yes Prior PCI Prior CABG Yes Yes Cerebrovascular Disease Yes Labs Hgb (g/dl) Hct (%) WBC (l/cumm) Platelets (thousands) 11.60-17.00 35.00-51.00 4.00-11.00 150.00-450.00 13.9 40 10 328 Glucose (mg/dl) BUN (mg/dl) Creatinine (mg/dl) BUN:Creatinine (1:x) 74.00-106.00 7.00-18.00 0.50-1.30 10.00-20.00 115 19 0.8 23.8 Na (meq/l) K (meq/l) 136.00-145.00 3.50-5.10 137 3 INR (PTT:PT) 0.90-1.10 1.2 Medication Medication Total Dose (Bolus/Oral) Medication Total Dosage/Unit 1% XYLOCAINE 40 mL HEPARIN 5000 units PROTAMINE 40 mg 03/27/2018 6:26:08 PM Financial #: [id number] 4 of 9 Patient Name: Valery Cook Study #: [id number] Initial MD: Bri Mitchell Date of : 1955 Study Date: 03/27/2018 Medications (Bolus/Oral) Medication Time Given Dosage/Unit Administered By Reason 1% XYLOCAINE 03/27/2018 5:06:16 PM 20 mL Bri Mitchell 20 mL 1% XYLOCAINE given in lab by Bri Mitchell in Left Groin via Subcutaneous. 1% XYLOCAINE 03/27/2018 5:12:16 PM 20 mL Bri Mitchell 20 mL 1% XYLOCAINE given in lab by Bri Mitchell in Right Groin via Subcutaneous. HEPARIN 03/27/2018 5:23:50 PM 5000 units Anesthesia, SPARES SCHEDULER 5000 units HEPARIN given in lab by Anesthesia, SPARES SCHEDULER via Peripheral IV. Ordered by Bri Mitchell. PROTAMINE 03/27/2018 6:02:00 PM 40 mg Anesthesia, SPARES SCHEDULER As per physicians verb al order 40 mg PROTAMINE given in lab by Anesthesia, SPARES SCHEDULER via Peripheral IV. Ordered by Bri Mitchell. Reason: As per physicians verbal order. Medication (Drip) Medication Time Given Dosage/Unit Concentration/Unit Diluent (ml) Solution AMIODARONE DRIP 03/27/2018 5:05:20 PM 0 units/hr 0 STOPPED 0 units/hr AMIODARONE DRIP STOPPED given by Anesthesia, SPARES SCHEDULER. Pump/Drip Flow = 0 ml/hr using [Solutio n Name]. 03/27/2018 6:26:08 PM Financial #: [id number] 5 of 9 Patient Name: Valery Cook Study #: [id number] Initial MD: Bri Mitchlel Date of : 1955 Study Date: 03/27/2018 Initial Case Assessment Cardiovascular HR Rhythm NIBP Chest Pain 64 sr 121/60 0 Edema Present Skin color Skin None Normal Warm Dry Circulatory - Right Pulses Dorsalis Pedis 3 Scale (0,1,2,3,4,d) Circulatory - Left Pulses Dorsalis Pedis 2 Scale (0,1,2,3,4,d) Circulatory - Lower Extremities Color Lower Right Color Lower Left Normal Normal Neurological State Oriented to time-place- Alert Moves all extremities person Respiration - General Respiration Rate SpO2 (%) O2 (lpm) (B/min) 18 96 6 Chronological Log Time Study Chronological Log 16:06:55 Patient arrived via Bed. 16:06:56 Patient Name, D.O.B, / Armband Verified By R.N. 16:07:12 Consent signed by the physician and the patient and verified by the Durable Medical Equipment Technician staff. 16:07:13 Verbal Stimulation=2 Physical Stimulation=2 Airway=2 Respiration=2 TOTAL=8. (0=absent, 1=li mited, 2=present) 16:07:13 Pre-op and post- op instructions given; patient acknowledges understanding of instructions. 16:07:15 Patient has been NPO for More than 6Hrs. 16:07:16 Skin Breakdown- irritated area on back possible def fib location 16:07:16 Patient Warmer Placed on the Table. 16:07:17 Disposable Defibrillator Pads Placed On Patient. 03/27/2018 6:26:08 PM Financial #: [id number] 6 of 9 Patient Name: Valery Cook Study #: [id number] Initial MD: Bri Mitchell Date of : 1955 Study Date: 03/27/2018 16:07:18 Sabra Prominences Protected 16:07:20 A # 20 IV was noted in the Forearm (left). Grade = 0 0.9ns kvo A # 20 IV was noted in the Forearm (right). Grade = 0 kcl ivpb infusing from floor at 15ml/hr, Amiodarone gtt at 16:07:21 1mg/min 16:07:22 History and physical on the chart or being dictated. 16:31:56 Table restraints applied according to hospital policy Assessment: Initial Case, HR=64 BPM, Rhythm=sr, RRHU=111/60 mmhg, Chest Pain=0, Edema=None, Col or=Normal, Skin = Warm, Dry Right Pulses: Andrae Ped=3 Left Pulses: Andrae Ped=2 16:42:20 Lower Right Extremities: Color=Normal Lower Left Extremities: Color=Normal Neurological: State=Alert, Ox3, CORREA Respiration: Resp=18 B/min, SpO2=96 %, O2=6 lpm 16:42:54 Bilateral groins prepped with 2% chlorhexidine, and draped after a 3 minute waiting time. 16:44:41 Aicd set at vvi 40 16:46:04 Reference ECG taken 16:48:08 MD paged 16:50:13 MD responded 16:59:53 MD arrived. Time Out. Correct patient, procedure, procedure equipment, site and side verified with physicia n present. Time 17:05:14 concurred by MD, individual staff and SPARES SCHEDULER. Time Out #2 - Consents verified, patient in correct position, all results are labled and displa yed, safety precautions 17:05:16 taken, antibiotics administered. Time out concurred by MD, individual staff and SPARES SCHEDULER in procedu re 17:05:17 Case Start 17:05:20 0 units/hr AMIODARONE DRIP STOPPED given by Anesthesia, SPARES SCHEDULER. Pump/Drip Flow = 0 ml/hr tyrel g [Solution Name]. 17:06:16 20 mL 1% XYLOCAINE given in lab by Bri Mitchell in Left Groin via Subcutaneous. 17:07:09 Vascular access was obtained in the Fem Vein (left). 17:07:14 Vascular access was obtained in the Fem Vein (left). 17:07:14 Vascular access was obtained in the Fem Vein (left). 17:07:15 Vascular access was obtained in the Fem Art (left). 17:07:37 A SHEATH, EPS, FR6 FAST CATH FR 6 was advanced into the Fem Vein (left) using the Modified Seldinger technique. 17:07:48 A SHEATH, EPS, FR6 FAST CATH FR 6 was advanced into the Fem Vein (left) using the Modified Seldinger technique. 17:09:54 A SHEATH, EPS, FR7 FAST CATH FR 7 was advanced into the Fem Vein (left) using the Modified Seldinger technique. 17:09:57 A SHEATH, FR10 TYLER 11CM FR 10 was advanced into the Fem Vein (left) using the Modified S eldinger technique. 17:10:32 Vascular access was obtained in the Fem Art (left). 17:10:41 A SHEATH, EPS, FR5 FAST CATH FR 5 was advanced into the Fem Art (left) using the Modified S eldinger technique. 17:12:16 20 mL 1% XYLOCAINE given in lab by Bri Mitchell in Right Groin via Subcutaneous. 17:12:28 Vascular access was obtained in the Fem Vein (right). 17:12:30 Vascular access was obtained in the Fem Art (right). 17:12:38 A SHEATH, EPS, FR8 FAST CATH FR 8 was advanced into the Fem Art (right) using the Modified Seldinger technique. 03/27/2018 6:26:08 PM Financial #: [id number] 7 of 9 Patient Name: Valery Cook Study #: [id number] Initial MD: Bri Mitchell Date of : 1955 Study Date: 03/27/2018 17:13:13 A SHEATH, EPS, FR6 FAST CATH FR 6 was advanced into the Fem Vein (left) using the Modified Seldinger technique. A CATHETER, JSN, QUAD FR 5 was advanced vis Fem Vein (left) and placed in the CS. Placement was visually 17:14:32 confirmed under fluoroscopy. A CATHETER, JSN, QUAD FR 5 was advanced vis Fem Vein (left) and placed in the HIS. Placement wa s visually 17:20:48 confirmed under fluoroscopy. A CATHETER, JSN, QUAD FR 5 was advanced vis Fem Vein (left) and placed in the RVA. Placement wa s visually 17:21:05 confirmed under fluoroscopy. 17:21:55 CATHETER, ACUNAV FR10 ICE (CreativeD) FR 10 Was Postioned. 17:23:50 5000 units HEPARIN given in lab by Anesthesia, SPARES SCHEDULER via Peripheral IV. Ordered by Fede Mitchell. A SHEATH, FR9 TYLER 11CM FR 9 was exchanged in the Fem Art (right). This was necessary in chalk hille r to accomodate 17:26:49 a larger catheter. A CATHETER, HD GRID MAPPING was advanced vis Fem Art (right) and placed in the LA. Placement wa s visually 17:28:27 confirmed under fluoroscopy. 17:31:38 Activated Clotting Time Drawn 17:33:17 MAPPING IN PROGRESS A CATHETER, THERMOCOOL NON-YADIEL TC D-F was advanced vis Fem Art (right) and placed in the LA. Pl acement was 17:38:20 visually confirmed under fluoroscopy. 17:38:37 RF Ablation of the LT. ATRIUM with a CATHETER, THERMOCOOL NON-YADIEL TC D-F. 17:40:33 ACT (Normal Range 90-180) = 345 17:45:34 ABLATION IN PROGRESS 17:57:00 Activated Clotting Time Drawn 17:58:00 All catheter(s) removed without difficulty 17:58:20 Device set at VVI 80 40 mg PROTAMINE given in lab by Anesthesia, SPARES SCHEDULER via Peripheral IV. Ordered by Bri Mitchell. Lizy mcnair: As per 18:02:00 physicians verbal order. 18:02:02 ACT (Normal Range 90-180) = 342 18:13:54 ACT (Normal Range 90-180) = 169 18:15:27 VASCADE, FR6 CLOSURE SYSTEM FR 6\7 placement in the Fem Vein (right) 18:15:49 Sheath 9f art removed; pressure applied to access site. right groin by sade waggoner 18:16:09 VASCADE, FR5 CLOSURE SYSTEM FR 5 placement in the Fem Art (left) 18:16:20 VASCADE, FR6 CLOSURE SYSTEM FR 6\7 placement in the Fem Vein (left) 18:16:29 VASCADE, FR6 CLOSURE SYSTEM FR 6\7 placement in the Fem Vein (left) 18:24:48 Sterile dressing applied to site 18:24:48 No case complications noted. 18:24:49 Cine recording checked. 18:24:53 Bedside Report will be given. 18:24:55 PACU called. Spoke to community associate 18:25:00 Case End (Physician broke scrub) 18:25:04 Defibrillator and ground pads removed. Skin intact. 18:25:19 Ablation procedure performed: ~ABLATION TYPE~. V-TACH 18:25:42 EP Procedure was performed. V-TACH ABLATION 18:35:05 Patient moved to [facility] 03/27/2018 6:26:08 PM Financial #: [id number] Patient Name: Valery Cook Study #: [id number] Initial MD: Bri Mitchell Date of : 1955 Study Date: 03/27/2018 End Study - Contrast Media Used In Study Contrast Total Opened (mL) Total Used (mL) Total Wasted (mL) Unspecified 0 0 0 End Study - Maximum Contrast Load Max Contrast Load (mL) 403.1 End Study - Radiation Exposure Fluoro Time (minutes) 10.4 End Study - Patient Disposition Complications Transferred To Interventional Outcome No Telemetry Bed successful 03/27/2018 6:26:08 PM Financial #: [id number]
[2018-03-27] MEDS: Magnesium Oxide 400 MG Tablet PO SCH (21:07)
--- NOTE | 2018-03-27 21:49 | MA ---
cc: Bri Mitchell MD,Hayde Stein,Juan David Manuel MD DATE: 03/27/2018 NAME OF TEST: Electrophysiology study with 3-D mapping, intracardiac echocardiogram with a retrograde aortic approach, ventricular tachycardia ablation, multiple different substrate isolation. INDICATIONS: Ms. Cook is a 62-year-old female with coronary artery disease, coronary artery bypass grafting, ejection fraction around 20%, episode of ventricular tachycardia, unresponsive to medication, was referred for electrophysiology study and ablation. The risks, the nature, and the benefits of the procedure were clearly stated to her. Risks include pneumothorax, cardiac perforation, stroke, need for open heart surgery, and even . The patient understood and agreed to proceed. DESCRIPTION OF PROCEDURE: After informed consent was obtained, the patient was brought to the EP lab, where she was prepped and draped in usual sterile fashion. Conscious sedation was initiated and administered throughout the procedure by the anesthesiologist. Once sedation was verified, the right and left inguinal areas were anesthetized with 2% Xylocaine. Using modified Seldinger technique, the left femoral vein was cannulated on 3 occasions and 3 guidewires were advanced. Over the wire, a 6, 7 and 10-[place] Hemaquet were advanced. Then, the left femoral artery cannulated on 1 occasion; 1 guidewire was advanced over the wire, 5-[place] Hemaquet was advanced. The right femoral vein was cannulated on 1 occasion; 1 guidewire was advanced over the wire, a 6-[place] Hemaquet was advanced. The right femoral artery was cannulated on 1 occasion; 1 guidewire was advanced, over the wire 8-[place]auan hematocrit was advanced. The 8-[place] Hemaquet is subsequently going to be upgraded to a 9-[place] Hemaquet. Then, under fluoroscopic guidance, through the 6 and 7-[place] Hemaquets, three 5-[place] Umesh quadripolar electrophysiology catheter was pressures and compatible electrophysiology catheter was advanced to the right ventricular apex, coronary sinus, and His. The basic intervals were measured. The patient was A-pacing and V-pacing. At this point, I decided to reprogram the device to VVI 40. The dual-chamber defibrillator was turned off. Then, through the 10-[place] Hemaquet, a [employer] AcuNav intracardiac catheter was ____ multiple views obtained. There was no pericardial effusion. Pulmonary vein was seen. Atrial septum visualized. Then, the catheter was placed at the right ventricular septal area. There was severe left ventricular dyskinesia. The only part of the left ventricle moving was basically the lateral wall. At this point, through the 9-[place] Hemaquet, a [employer] 20 pole HD grid mapping catheter was advanced. ____ of the left ventricle was done through the aortic valve. I did map the left ventricle. There was an island of substrate. There was some scar tissue in the substrate on the anterolateral wall. At this point I decided to map the area. Subsequently, I did remove the HD grid catheter and replaced it by a [employer] [facility] bidirectional 3.5 mm irrigated tip mapping and radiofrequency ablation catheter. I used 40 bell during the ablation. At the beginning, VT was easily inducible. At the site of isolate, there was a scar tissue area. End substrate was mapped and ablated. Then, eventually pacing protocol was performed for the right ventricular apex. No tachycardia was induced. No even a beat of PVC. Then , at this stage, from the tip of the ablation catheter in the left ventricle, no tachyarrhythmia was induced. There was complete isolation of the scar at the base and the border, where I did ablate, but there was no conduction. Then, I did move the catheter in the apex. I did repeat ventricular pacing protocol, again, no tachyarrhythmia was induced. At that point, the procedure was complete. Systolic blood pressure was around 170. All catheters were removed. Intracardiac echo showed no pericardial effusion. The patient will be transferred to the recovery room. This was a very complex and difficult case. No ____. The patient tolerated the procedure. Blood loss minimal. ELECTROCARDIOGRAM: At baseline, the patient was in A-pacing and V-sensing. Post-procedure, the patient in sinus rhythm. BASIC INTERVAL: Basic interval was around 800 milliseconds. VENTRICULAR PACING PROTOCOL: Tachyarrhythmia was induced preablation, but no tachyarrhythmia post-ablation. CONCLUSIONS: Successful electrophysiology study, mapping and radiofrequency ablation of ventricular tachyarrhythmia. Multiple substrate isolations, different type of arrhythmia ablation. RECOMMENDATIONS: The patient will be transferred back to the unit. At this point, I will initiate amiodarone p.o. Ms. Cook will need a defibrillator to be upgraded to a biventricular pacer defibrillator. Case will be discussed extensively with her. MD ROME Brennan/kerline/edinson , 06:17 PM , 06:33 PM
[2018-03-28] MEDS: Insulin NovoLIN Regular Correctional Sugar Inj SQ SCH ×4 (00:22→18:25)
[2018-03-28] MEDS: Acetaminophen 325 MG Tablet PO PRN (02:52)
[2018-03-28 04:39] LABS: Hematocrit 40.6 % (35.0-46.0); Hemoglobin 13.4 gm/dL (11.6-15.3); Mean Corpuscular HGB Conc 32.9 % (32.0-36.0); Mean Corpuscular Hemoglobin 30.4 pg (27.0-34.0); Mean Corpuscular Volume 92.4 fL (80.0-100.0); Mean Platelet Volume 9.3 fL (7.0-11.0); Platelet Count 347 th/mm3 (150-450); Red Blood Count 4.39 mil/mm3 (4.00-5.30); Red Cell Distribution Width 15.4 % (11.6-17.2); White Blood Count 9.2 th/mm3 (4.0-11.0)
[2018-03-28 04:59] LABS: Activated Partial Thrombo Time 32.7 sec (23.4-31.7); INR 1.1 Ratio
[2018-03-28 05:16] LABS: Calcium 8.6 mg/dL (8.5-10.1); Carbon Dioxide 26.8 meq/L (21.0-32.0); Magnesium 2.5 mg/dL (1.5-2.5); Phosphorus 2.9 mg/dL (2.5-4.9); Potassium 4.2 meq/L (3.5-5.1)
[2018-03-28] MEDS: Ramipril 2.5 MG Capsule PO SCH (08:27)
[2018-03-28] MEDS: Carvedilol 12.5 MG Tablet PO SCH ×2 (08:27→21:30)
[2018-03-28] MEDS: Magnesium Oxide 400 MG Tablet PO SCH ×2 (08:27→21:30)
[2018-03-28] MEDS: Amiodarone 200 MG Tablet PO SCH (08:27)
--- NOTE | 2018-03-28 10:33 | P.PNCA ---
Subjective Interval history: alert in nad Medications and Allergies Active Medications: Active Medications Acetaminophen (Tylenol) 650 mg PO Q4H PRN PRN Reason: Headache, fever, pain 1-4 Last Admin: 03/28/18 02:52 Dose: 650 mg Amiodarone HCl (Cordarone) 200 mg PO DAILY [facility] Last Admin: 03/28/18 08:27 Dose: 200 mg Aspirin (Aspirin Chew) 81 mg PO DAILY [facility] Last Admin: 03/28/18 08:26 Dose: 81 mg Atorvastatin Calcium (Lipitor) 40 mg PO HS [facility] Last Admin: 03/27/18 21:07 Dose: 40 mg Carvedilol (Coreg) 12.5 mg PO BID [facility] Last Admin: 03/28/18 08:27 Dose: 12.5 mg Clopidogrel Bisulfate (Plavix) 75 mg PO DAILY [facility] Last Admin: 03/28/18 08:46 Dose: 75 mg Dextrose (D50w Vial) 50 ml IV.PUSH UNSCH PRN PRN Reason: PER HYPOGLYCEMIA PROTOCOL Furosemide (Lasix Inj) 40 mg IV.PUSH BID@0900,1800 [facility] Last Admin: 03/28/18 08:27 Dose: 40 mg Glucagon (Glucagon Inj) 1 mg OTHER PRN PRN PRN Reason: for Hypoglycemia Protocol Magnesium Sulfate 4 gm/ Sodium (Chloride) 100 mls @ 50 mls/hr IV.SIG UNSCH PRN PRN Reason: For Magnesium 0.9 - 1.1 mg/dL Magnesium Sulfate 2 gm/ Sodium (Chloride) 100 mls @ 50 mls/hr IV.SIG UNSCH PRN PRN Reason: For Magnesium 1.2 - 1.6 mg/dL Last Admin: 03/27/18 21:07 Dose: 50 mls/hr Potassium Chloride (Kcl 40 Meq Premix Inj) 40 meq in 100 mls @ 25 mls/hr IV.SIG Q2H PRN PRN Reason: For Potassium 2.8 - 3.2 mEq/L Potassium Chloride (Kcl 20 Meq Premix Inj) 20 meq in 100 mls @ 50 mls/hr IV.SIG Q2H PRN PRN Reason: For Potassium 3.3 - 3.5 mEq/L Potassium Chloride (Kcl 40 Meq Premix Inj) 40 meq in 100 mls @ 25 mls/hr IV.SIG UNSCH PRN PRN Reason: For Potassium 3.3 - 3.5 mEq/L Potassium Chloride (Kcl 20 Meq Premix Inj) 20 meq in 100 mls @ 50 mls/hr IV.SIG Q2H PRN PRN Reason: For Potassium 2.8 - 3.2 mEq/L Last Admin: 03/27/18 21:08 Dose: 50 mls/hr Potassium Phosphate 30 mmol/ (Sodium Chloride) 260 mls @ 42 mls/hr IV.SIG UNSCH PRN PRN Reason: SEE LABEL COMMENTS Sodium Phosphate 30 mmol/ (Sodium Chloride) 260 mls @ 42 mls/hr IV.SIG UNSCH PRN PRN Reason: For Phosphorus < 2.5 mg/dL Phenylephrine HCl 40 mg/ (Dextrose) 500 mls @ 30 mls/hr IV.CONT TITRATE PRN; Protocol PRN Reason: Per Protocol Last Titration: 03/25/18 10:52 Dose: Infused Insulin Human Regular (Novolin R Correctional Sugar Inj) 0 units SQ Q6HR [facility]; Protocol Last Admin: 03/28/18 06:21 Dose: Not Given Magnesium Oxide (Mag-Ox) 800 mg PO UNSCH PRN PRN Reason: For Magnesium 1.2 - 1.6 mg/dL Magnesium Oxide (Mag-Ox) 400 mg PO BID [facility] Last Admin: 03/28/18 08:27 Dose: 400 mg Miscellaneous Information (Mis Nursing Information) 1 each OTHER UNSCH PRN PRN Reason: SEE LABEL COMMENTS Stop: 03/28/18 19:22 Ondansetron HCl (Zofran Inj) 4 mg IV.PUSH Q4H PRN PRN Reason: NAUSEA Pharmacy Profile Note (Coumadin Consult Pharmacy) 1 each OTHER UNSCH PRN PRN Reason: PHARMACY DOCUMENTATION Potassium Bicarb/Potassium Chloride (K-Lyte Cl Eff) 50 meq PO UNSCH PRN PRN Reason: For Potassium 3.3 - 3.5 mEq/L Potassium Phosphate (K-Phos Original) 2,000 mg PO UNSCH PRN PRN Reason: SEE LABEL COMMENTS Potassium Phosphate (K-Phos Original) 2,000 mg PO Q4H PRN PRN Reason: Phosphorus Less Than 2.5 mg/dL Ramipril (Altace) 2.5 mg PO DAILY [facility] Last Admin: 03/28/18 08:27 Dose: 2.5 mg Sodium Chloride (Ns Flush) 2 ml IV.FLUSH BID [facility] Last Admin: 03/28/18 08:30 Dose: 2 ml Sodium Chloride (Ns Flush) 2 ml IV.FLUSH PRN PRN PRN Reason: FLUSH AFTER USING IV ACCESS Last Admin: 03/23/18 22:39 Dose: 2 ml Terbutaline Sulfate (Brethine Inj) 1 mg SQ UNSCH PRN PRN Reason: For Extravasation Warfarin Sodium (Coumadin) 5 mg PO DAILY@1600 [facility] Last Admin: 03/21/18 17:06 Dose: 5 mg Allergies Allergy/AdvReac Type Severity Reaction Status Date / Time No Known Allergies Allergy Verified 03/20/18 12:05 Physical Exam Vital signs: Vital Signs 03/27/18 11:00 03/27/18 11:01 03/27/18 12:00 Temperature 97.7 F Pulse Rate 124 H 124 H 123 H Respiratory Rate 24 19 21 Blood Pressure 129/79 112/75 Pulse Oximetry 96 97 97 03/27/18 13:00 03/27/18 14:00 03/27/18 15:00 Temperature Pulse Rate 123 H 122 H 122 H Respiratory Rate 19 24 46 H Blood Pressure 124/84 126/92 H 129/97 H Pulse Oximetry 97 96 93 L 03/27/18 18:55 03/27/18 19:00 03/27/18 19:15 Temperature 97.5 F L Pulse Rate 73 62 68 Respiratory Rate 16 16 15 Blood Pressure 113/71 113/61 114/69 Pulse Oximetry 97 98 96 03/27/18 19:30 03/27/18 19:45 03/27/18 19:52 Temperature 97.6 F Pulse Rate 70 72 79 Respiratory Rate 15 16 Blood Pressure 118/63 121/66 Pulse Oximetry 97 96 03/27/18 19:54 03/27/18 20:00 03/27/18 21:00 Temperature 98.5 F Pulse Rate 79 79 79 Respiratory Rate 12 10 L 23 Blood Pressure 116/69 118/75 134/69 Pulse Oximetry 92 L 96 99 03/27/18 22:00 03/27/18 23:00 03/28/18 00:00 Temperature 97.5 F L Pulse Rate 76 79 79 Respiratory Rate 13 12 24 Blood Pressure 129/68 117/67 125/66 Pulse Oximetry 99 99 99 03/28/18 01:00 03/28/18 02:00 03/28/18 03:00 Temperature Pulse Rate 79 79 79 Respiratory Rate 17 19 23 Blood Pressure 121/68 127/65 113/60 Pulse Oximetry 100 97 96 03/28/18 04:00 03/28/18 05:00 03/28/18 06:00 Temperature 97.8 F Pulse Rate 79 79 79 Respiratory Rate 15 20 20 Blood Pressure 118/64 122/69 126/68 Pulse Oximetry 97 98 98 03/28/18 08:00 03/28/18 08:19 03/28/18 10:00 Temperature Pulse Rate 79 79 Respiratory Rate Blood Pressure Pulse Oximetry 97 Intake & Output 03/27/18 03/28/18 03/28/18 18:59 06:59 18:59 Intake Total 550 / 550 120 / 120 Output Total 1450 / 1450 250 / 250 Balance -900 / -900 -130 / -130 Weight 65.5 kg Intake: IV 550 / 550 Cordarone Inj 450 MG In D5W Inj 250 / 250 241 ML @ 1 MG/MIN 33.33 mls/hr IV.CONT CONT [facility] Rx#:[id number] KCl 20 mEq Premix Inj 20 meq In 300 / 300 100 ml @ 50 mls/hr IV.SIG Q2H PRN Rx#:[id number] Oral 120 / 120 Output: Urine 1450 / 1450 0 / 0 Urine Amount (Catheter) 250 / 250 Female External 250 / 250 Other: # Voids 1 # Incontinent Voids 1 Date of Last Bowel Movement 03/25/18 03/25/18 03/25/18 # Bowel Movements 0 - Constitutional no acute distress - Routine HEENT Exam Head: Present: normocephalic - Routine Neck Exam Present: supple - Routine Respiratory Exam Present: CTA bilaterally - Routine Cardiovascular Exam Present: S1, S2 - Routine Abdominal Exam Present: soft - Routine Extremities Exam Comments: no ramón - Urinary Catheter Management Female External Cath placed during this visit: yes Reason for continuing: Not indwelling catheter Insertion date: 03/23/18 Insertion time: 03:00 Results 03/28/18 03:53 03/28/18 03:53 Cardiac Enzymes 03/27/18 03/28/18 Range/Units 04:09 03:53 B-Natriuretic Peptide 762 H 825 H (0-100) pg/mL Coagulation 03/27/18 03/27/18 03/28/18 Range/Units 04:09 04:09 03:53 PT 11.7 H (9.8-11.6) sec APTT (23.4-31.7) sec B-Natriuretic Peptide 762 H 825 H (0-100) pg/mL 03/28/18 Range/Units 03:53 PT 11.0 (9.8-11.6) sec APTT 32.7 H (23.4-31.7) sec B-Natriuretic Peptide (0-100) pg/mL CBC 03/27/18 03/28/18 Range/Units 04:09 03:53 WBC 10.0 9.2 (4.0-11.0) th/mm3 RBC 4.44 4.39 (4.00-5.30) mil/mm3 Hgb 13.9 13.4 (11.6-15.3) gm/dL Hct 40.3 40.6 (35.0-46.0) % Plt Count 328 347 (150-450) th/mm3 Comprehensive Metabolic Panel 03/27/18 03/28/18 Range/Units 04:09 03:53 Sodium 136 140 (136-145) meq/L Potassium 3.0 L 4.2 D (3.5-5.1) meq/L Chloride 99 106 (98-107) meq/L Carbon Dioxide 29.5 26.8 (21.0-32.0) meq/L BUN 19 H 15 (7-18) mg/dL Creatinine 0.82 0.81 (0.50-1.00) mg/dL Calcium 8.9 8.6 (8.5-10.1) mg/dL Intake and Output 03/27/18 03/28/18 03/28/18 22:59 06:59 14:59 Intake Total 100 / 100 120 / 120 Output Total 1450 / 1450 250 / 250 Balance -1350 / -1350 -130 / -130 Intake: IV 100 / 100 KCl 20 mEq Premix Inj 20 meq In 100 / 100 100 ml @ 50 mls/hr IV.SIG Q2H PRN Rx#:[id number] Oral 120 / 120 Output: Urine 1450 / 1450 0 / 0 Urine Amount (Catheter) 250 / 250 Female External 250 / 250 Other: # Voids 1 # Incontinent Voids 1 Date of Last Bowel Movement 03/25/18 03/25/18 03/25/18 # Bowel Movements 0 Weight 65.5 kg Assessment and Plan - Assessment (1) NSTEMI (non-ST elevated myocardial infarction) Code(s): I21.4 - Non-ST elevation (NSTEMI) myocardial infarction Status: Acute (2) CAD (coronary artery disease) Code(s): I25.10 - Atherosclerotic heart disease of [place] coronary artery without angina pectoris Status: Chronic (3) Cardiomyopathy Code(s): I42.9 - Cardiomyopathy, unspecified Status: Acute (4) Tobacco abuse Code(s): Z72.0 - Tobacco use Status: Chronic (5) Atrial fibrillation Code(s): I48.91 - Unspecified atrial fibrillation Status: Acute - Plan 1.) CAD - pod #7 bms prox lad, assymptomatic, continue aspirin and plavix 2.) wide complex tachycardia - av paced on monitor today, continue coumadin, continue amio and lidocaine drip, per Dr Mitchell 03/23/18; d/w Dr Morrison 03/23/18 3.) Cardiomyopathy - continue coreg, diuresis, f/u bnp.
--- NOTE | 2018-03-28 14:09 | ECG ---
Date Performed: 03/27/2018 Time Performed: 19:28:20 PTAGE: 62 years EKG: ELECTRONIC ATRIAL PACEMAKER INTRAVENTRICULAR CONDUCTION DELAY LEFT VENTRICULAR HYPERTROPHY AND ST-T CHANGE ANTEROSEPTAL MYOCARDIAL INFARCTION , PROBABLY RECENT ACUTE [place] PREVIOUS TRACING : 03/23/2018 08.25 Compared to previous tracing, paced rhythm is new. DOCTOR: Blade Veronica Interpretating Date/Time 03/28/2018 14:07:49
[2018-03-28] MEDS ORDERED: Warfarin Consult Pharmacy OTHER PRN (15:22)
--- NOTE | 2018-03-28 15:28 | P.PNCC ---
Subjective Subjective Remarks/Hospital Course: History is was obtained from patient and review of EMR. She is a somewhat difficult historian who has extensive past medical history but is has difficulty describing the details of it. 62 yo female with past medical history of coronary artery disease with prior CABG, on chronic anticoagulation with warfarin for history of paroxysmal atrial fibrillation (per her report), hyperlipidemia, chronic systolic heart failure with pacemaker and defibrillator in place ~10 years, ongoing tobacco abuse, history of alcohol abuse in remission, prior stroke. She presented to [facility] on 03/20 with chief complaint of substernal chest pain. EKG demonstrated wide-complex tachycardia with rate of 136. STEMI alert was called due to lateral ST deviation. She was taken emergently to [facility] by Dr. Stein where she underwent bare metal stent to proximal LAD, ultimately diagnosed with NSTEMI. Per cardiology verbal report, EF was low, ~30-35%. Following the procedure, she experienced improvement in chest pain. However, she remained tachycardic despite cardizem drip, amiodarone drip (started 03/20) , metoprolol total 15 mg IV bolus (overnight 03/21 and candle molder 03/22), digoxin 500 mcg IV 03/20 and 250 mcg IV 03/22 ~16:00 and 125 mcg IV 03/22 18: 28. Reportedly, the afternoon of 03/22 she was hypotensive and cardizem was placed on hold. She was given 1 L NS bolus (per PRINCIPAL MECHANICAL ENGINEER report). She was given lidocaine bolus [address] Stein and started on lidocaine 1 mg/min. Device rep has been contacted to interrogate device and Dr. Stein has consulted Dr. Mitchell for possible ZURDO and cardioversion. Critical care medicine has been consulted to follow patient in order to intervene expeditiously in the event she becomes unstable. Patient states she does not have any CP, SOB, or palpitations. She does say she is "afraid to move much" because her chest pain prior to coming to the hospital was worse with exertion and she doesn't want it to start again. She does not have much appetite, is nauseous, but has not had vomiting or diaphoresis. She does have frontal headache that started around 4 pm. She indicates that she has had exertional CP and SOB for "several months " and perhaps even 1-2 years prior to seeking medical attention. She does not feel that her symptoms are acutely worse tonight. SUBJ 03/23: Patient is lying in bed, appears somewhat anxious. Heart rate remains 130-135, regular. EKG shows wide complex tachycardia. Currently on amiodarone and lidocaine. To me it appears like SVT with aberrancy, but no response to AV murali blockers. I do not see any evidence of preexcitation on EKG. Will attempt adenosine 6 mg if no response, followed by 12 mg IV push. Discussed with Dr. Stein who is agreeable with the plan 03/24: cardioverted 3 times overnight for v. tach. each time was back into sinus /paced rhythm for a few hours, but went back into wide-complex tachycardia. this morning, went back into WCT at around 6:30am. have ordered repeat amiodarone bolus, increase drip rate back to 1mg/min, added lidocaine drip back , aggressively replaced electrolytes. 02/22: did not diurese adequately yesterday. will increase lasix to achieve negative balance. went back into wide-complex tachycardia today. I have spoken with Dr. Mitchell and he will see the patient today. I do think the patient would benefit significantly from EP study, but will defer to Dr. Mitchell on this. again replaced electrolytes aggressively. 03/26: patient remained in WCT for 17 hours yesterday. spontaneously converted back to paced rhythm around 5:45am. NPO for possible EP study today. remains on esmolol infusion. patient asymptomatic today. wants to ambulate. 03/27: unable to obtain EP study yesterday. NPO for study today. went back into WCT this morning in rate 130s. hemodynamically stable. awaiting further evaluation. resting comfortably. 03/28: s/p EP study with ablation yesterday and upgrade of AICD to BiV AICD. doing well. denies complaints. states she "feels like her old self again". no more episodes of WCT. ROS negative. Objective Vital Signs / I&O: Vital Signs 03/27/18 18:55 03/27/18 19:00 03/27/18 19:15 Temperature 36.4 C L Pulse Rate 73 62 68 Respiratory Rate 16 16 15 Blood Pressure 113/71 113/61 114/69 Pulse Oximetry 97 98 96 03/27/18 19:30 03/27/18 19:45 03/27/18 19:52 Temperature 36.4 C Pulse Rate 70 72 79 Respiratory Rate 15 16 Blood Pressure 118/63 121/66 Pulse Oximetry 97 96 03/27/18 19:54 03/27/18 20:00 03/27/18 21:00 Temperature 36.9 C Pulse Rate 79 79 79 Respiratory Rate 12 10 L 23 Blood Pressure 116/69 118/75 134/69 Pulse Oximetry 92 L 96 99 03/27/18 22:00 03/27/18 23:00 03/28/18 00:00 Temperature 36.4 C L Pulse Rate 76 79 79 Respiratory Rate 13 12 24 Blood Pressure 129/68 117/67 125/66 Pulse Oximetry 99 99 99 03/28/18 01:00 03/28/18 02:00 03/28/18 03:00 Temperature Pulse Rate 79 79 79 Respiratory Rate 17 19 23 Blood Pressure 121/68 127/65 113/60 Pulse Oximetry 100 97 96 03/28/18 04:00 03/28/18 05:00 03/28/18 06:00 Temperature 36.6 C Pulse Rate 79 79 79 Respiratory Rate 15 20 20 Blood Pressure 118/64 122/69 126/68 Pulse Oximetry 97 98 98 03/28/18 08:00 03/28/18 08:19 03/28/18 10:00 Temperature 36.8 C Pulse Rate 79 79 Respiratory Rate 17 Blood Pressure 122/69 Pulse Oximetry 98 97 03/28/18 12:00 03/28/18 12:05 03/28/18 14:00 Temperature 36.8 C Pulse Rate 74 79 79 Respiratory Rate 25 H Blood Pressure 103/65 Pulse Oximetry 97 Intake & Output 03/27/18 03/28/18 03/28/18 18:59 06:59 18:59 Intake Total 550 / 550 120 / 120 Output Total 1450 / 1450 250 / 250 Balance -900 / -900 -130 / -130 Weight 65.5 kg Intake: IV 550 / 550 Cordarone Inj 450 MG In D5W Inj 250 / 250 241 ML @ 1 MG/MIN 33.33 mls/hr IV.CONT CONT [facility] Rx#:[id number] KCl 20 mEq Premix Inj 20 meq In 300 / 300 100 ml @ 50 mls/hr IV.SIG Q2H PRN Rx#:[id number] Oral 120 / 120 Output: Urine 1450 / 1450 0 / 0 Urine Amount (Catheter) 250 / 250 Female External 250 / 250 Other: # Voids 1 # Incontinent Voids 1 Date of Last Bowel Movement 03/25/18 03/25/18 03/25/18 # Bowel Movements 0 Result Diagrams: 03/28/18 03:53 03/28/18 03:53 Objective Remarks: GENERAL: middle-aged patient who is sitting up in bed, awake, alert, no acute distress. SKIN: Warm and dry. HEAD: Atraumatic. Normocephalic. EYES: Pupils equal and round. No scleral icterus. No injection or drainage. ENT: No nasal bleeding or discharge. NECK: Trachea midline. CARDIOVASCULAR: normal rate, paced rhythm. RESPIRATORY: Resting comfortably on nasal cannula. equal chest rise. unlabored. GASTROINTESTINAL: Abdomen soft, non-tender, nondistended. MUSCULOSKELETAL: Extremities without clubbing, cyanosis, or edema. NEUROLOGICAL: awake, alert. RASS 0. CAM-. follows commands. Assessment and Plan - Problem List (1) NSTEMI (non-ST elevated myocardial infarction) Code(s): I21.4 - Non-ST elevation (NSTEMI) myocardial infarction Status: Acute (2) Chronic systolic heart failure Code(s): I50.22 - Chronic systolic (congestive) heart failure Status: Chronic (3) Artificial cardiac pacemaker Code(s): Z95.0 - Presence of cardiac pacemaker Status: Chronic (4) AICD (automatic cardioverter/defibrillator) present Code(s): Z95.810 - Presence of automatic (implantable) cardiac defibrillator Status: Chronic (5) CAD (coronary artery disease) Code(s): I25.10 - Atherosclerotic heart disease of [place] coronary artery without angina pectoris Status: Chronic (6) Tobacco abuse Code(s): Z72.0 - Tobacco use Status: Chronic (7) Wide-complex tachycardia Code(s): I47.2 - Ventricular tachycardia Status: Acute (8) History of stroke Code(s): Z86.73 - Personal history of transient ischemic attack (TIA), and cerebral infarction without residual deficits Status: Chronic (9) History of ETOH abuse Code(s): Z87.898 - Personal history of other specified conditions Status: Chronic - Assessment and Plan Plan: NEURO: Prior history of alcohol dependence in remission for many years Prior history of stroke Tylenol as needed for headache RESP: Tobacco abuse Tobacco cessation counseling discussed. CV: Wide-complex tachycardia- resolved NSTEMI Bare-metal stent proximal LAD (Dr. Juan David Stein) Coronary disease Chronic systolic heart failure s/p EP study with ablation 03/27 On warfarin, Plavix and aspirin (triple therapy per cardiology). continue Coreg 3.125 mg po bid. Continue lisinopril 5 mg po daily. restart warfarin. Interrogate ICD. Dr. Stein following. Dr. Mitchell guiding anti-arrhythmic therapy EP study 03/27 GI: cardiac diet as tolerated. FEN/RENAL: daily bmp. Creatinine has been normal. ID: Monitor for signs and symptoms of infection HEME: Monitor CBC ENDO: Checked TSH, is WNL. PROPH: SCD. restart coumadin. Stress ulcer prophylaxis is not indicated. ACCESS: Peripheral IV is providing adequate access. can transfer out of ICU. consult [facility] to assume care 03/29.
--- NOTE | 2018-03-28 15:44 | P.PNCA ---
Subjective Interval history: Follow up for Dr. Mitchell s/p VT ablation No further arrhythmias noted Medications and Allergies Active Medications: Active Medications Acetaminophen (Tylenol) 650 mg PO Q4H PRN PRN Reason: Headache, fever, pain 1-4 Last Admin: 03/28/18 02:52 Dose: 650 mg Amiodarone HCl (Cordarone) 200 mg PO DAILY [facility] Last Admin: 03/28/18 08:27 Dose: 200 mg Aspirin (Aspirin Chew) 81 mg PO DAILY [facility] Last Admin: 03/28/18 08:26 Dose: 81 mg Atorvastatin Calcium (Lipitor) 40 mg PO HS [facility] Last Admin: 03/27/18 21:07 Dose: 40 mg Carvedilol (Coreg) 12.5 mg PO BID [facility] Last Admin: 03/28/18 08:27 Dose: 12.5 mg Clopidogrel Bisulfate (Plavix) 75 mg PO DAILY [facility] Last Admin: 03/28/18 08:46 Dose: 75 mg Dextrose (D50w Vial) 50 ml IV.PUSH UNSCH PRN PRN Reason: PER HYPOGLYCEMIA PROTOCOL Furosemide (Lasix Inj) 40 mg IV.PUSH BID@0900,1800 [facility] Last Admin: 03/28/18 08:27 Dose: 40 mg Glucagon (Glucagon Inj) 1 mg OTHER PRN PRN PRN Reason: for Hypoglycemia Protocol Magnesium Sulfate 4 gm/ Sodium (Chloride) 100 mls @ 50 mls/hr IV.SIG UNSCH PRN PRN Reason: For Magnesium 0.9 - 1.1 mg/dL Magnesium Sulfate 2 gm/ Sodium (Chloride) 100 mls @ 50 mls/hr IV.SIG UNSCH PRN PRN Reason: For Magnesium 1.2 - 1.6 mg/dL Last Admin: 03/27/18 21:07 Dose: 50 mls/hr Potassium Chloride (Kcl 40 Meq Premix Inj) 40 meq in 100 mls @ 25 mls/hr IV.SIG Q2H PRN PRN Reason: For Potassium 2.8 - 3.2 mEq/L Potassium Chloride (Kcl 20 Meq Premix Inj) 20 meq in 100 mls @ 50 mls/hr IV.SIG Q2H PRN PRN Reason: For Potassium 3.3 - 3.5 mEq/L Potassium Chloride (Kcl 40 Meq Premix Inj) 40 meq in 100 mls @ 25 mls/hr IV.SIG UNSCH PRN PRN Reason: For Potassium 3.3 - 3.5 mEq/L Potassium Chloride (Kcl 20 Meq Premix Inj) 20 meq in 100 mls @ 50 mls/hr IV.SIG Q2H PRN PRN Reason: For Potassium 2.8 - 3.2 mEq/L Last Admin: 03/27/18 21:08 Dose: 50 mls/hr Potassium Phosphate 30 mmol/ (Sodium Chloride) 260 mls @ 42 mls/hr IV.SIG UNSCH PRN PRN Reason: SEE LABEL COMMENTS Sodium Phosphate 30 mmol/ (Sodium Chloride) 260 mls @ 42 mls/hr IV.SIG UNSCH PRN PRN Reason: For Phosphorus < 2.5 mg/dL Insulin Human Regular (Novolin R Correctional Sugar Inj) 0 units SQ Q6HR [facility]; Protocol Last Admin: 03/28/18 11:58 Dose: Not Given Magnesium Oxide (Mag-Ox) 800 mg PO UNSCH PRN PRN Reason: For Magnesium 1.2 - 1.6 mg/dL Magnesium Oxide (Mag-Ox) 400 mg PO BID [facility] Last Admin: 03/28/18 08:27 Dose: 400 mg Miscellaneous Information (Mis Nursing Information) 1 each OTHER UNSCH PRN PRN Reason: SEE LABEL COMMENTS Stop: 03/28/18 19:22 Ondansetron HCl (Zofran Inj) 4 mg IV.PUSH Q4H PRN PRN Reason: NAUSEA Pharmacy Profile Note (Coumadin Consult Pharmacy) 1 each OTHER UNSCH PRN PRN Reason: PHARMACY DOCUMENTATION Potassium Bicarb/Potassium Chloride (K-Lyte Cl Eff) 50 meq PO UNSCH PRN PRN Reason: For Potassium 3.3 - 3.5 mEq/L Potassium Phosphate (K-Phos Original) 2,000 mg PO UNSCH PRN PRN Reason: SEE LABEL COMMENTS Potassium Phosphate (K-Phos Original) 2,000 mg PO Q4H PRN PRN Reason: Phosphorus Less Than 2.5 mg/dL Ramipril (Altace) 2.5 mg PO DAILY [facility] Last Admin: 03/28/18 08:27 Dose: 2.5 mg Sodium Chloride (Ns Flush) 2 ml IV.FLUSH BID [facility] Last Admin: 03/28/18 08:30 Dose: 2 ml Sodium Chloride (Ns Flush) 2 ml IV.FLUSH PRN PRN PRN Reason: FLUSH AFTER USING IV ACCESS Last Admin: 03/23/18 22:39 Dose: 2 ml Warfarin Sodium (Coumadin) 5 mg PO DAILY@1600 [facility] Last Admin: 03/21/18 17:06 Dose: 5 mg Allergies Allergy/AdvReac Type Severity Reaction Status Date / Time No Known Allergies Allergy Verified 03/20/18 12:05 Physical Exam Vital signs: Vital Signs 03/27/18 18:55 03/27/18 19:00 03/27/18 19:15 Temperature 97.5 F L Pulse Rate 73 62 68 Respiratory Rate 16 16 15 Blood Pressure 113/71 113/61 114/69 Pulse Oximetry 97 98 96 03/27/18 19:30 03/27/18 19:45 03/27/18 19:52 Temperature 97.6 F Pulse Rate 70 72 79 Respiratory Rate 15 16 Blood Pressure 118/63 121/66 Pulse Oximetry 97 96 03/27/18 19:54 03/27/18 20:00 03/27/18 21:00 Temperature 98.5 F Pulse Rate 79 79 79 Respiratory Rate 12 10 L 23 Blood Pressure 116/69 118/75 134/69 Pulse Oximetry 92 L 96 99 03/27/18 22:00 03/27/18 23:00 03/28/18 00:00 Temperature 97.5 F L Pulse Rate 76 79 79 Respiratory Rate 13 12 24 Blood Pressure 129/68 117/67 125/66 Pulse Oximetry 99 99 99 03/28/18 01:00 03/28/18 02:00 03/28/18 03:00 Temperature Pulse Rate 79 79 79 Respiratory Rate 17 19 23 Blood Pressure 121/68 127/65 113/60 Pulse Oximetry 100 97 96 03/28/18 04:00 03/28/18 05:00 03/28/18 06:00 Temperature 97.8 F Pulse Rate 79 79 79 Respiratory Rate 15 20 20 Blood Pressure 118/64 122/69 126/68 Pulse Oximetry 97 98 98 03/28/18 08:00 03/28/18 08:19 03/28/18 10:00 Temperature 98.2 F Pulse Rate 79 79 Respiratory Rate 17 Blood Pressure 122/69 Pulse Oximetry 98 97 03/28/18 12:00 03/28/18 12:05 03/28/18 14:00 Temperature 98.2 F Pulse Rate 74 79 79 Respiratory Rate 25 H Blood Pressure 103/65 Pulse Oximetry 97 Intake & Output 11/30/18 12/01/18 12/01/18 18:59 06:59 18:59 Intake Total 550 / 550 120 / 120 Output Total 1450 / 1450 250 / 250 Balance -900 / -900 -130 / -130 Weight 65.5 kg Intake: IV 550 / 550 Cordarone Inj 450 MG In D5W Inj 250 / 250 241 ML @ 1 MG/MIN 33.33 mls/hr IV.CONT CONT [facility] Rx#:[id number] KCl 20 mEq Premix Inj 20 meq In 300 / 300 100 ml @ 50 mls/hr IV.SIG Q2H PRN Rx#:[id number] Oral 120 / 120 Output: Urine 1450 / 1450 0 / 0 Urine Amount (Catheter) 250 / 250 Female External 250 / 250 Other: # Voids 1 # Incontinent Voids 1 Date of Last Bowel Movement 03/25/18 03/25/18 03/25/18 # Bowel Movements 0 Narrative: GENERAL: Well-nourished, well-developed patient who is sitting up in CVICU bed, alert and conversant. SKIN: Warm and dry. HEAD: Atraumatic. Normocephalic. EYES: Pupils equal and round. No scleral icterus. No injection or drainage. ENT: No nasal bleeding or discharge. NECK: Trachea midline. CARDIOVASCULAR: RRR no murmurs RESPIRATORY: CTA B/L GASTROINTESTINAL: Abdomen soft, non-tender, nondistended. Bowel sounds present. MUSCULOSKELETAL: Extremities without clubbing, cyanosis, or edema. Both groins without hematoma NEUROLOGICAL: Awake and alert. No obvious cranial nerve deficits. Motor grossly within normal limits. Normal speech. - Urinary Catheter Management Female External Cath placed during this visit: yes Reason for continuing: Not indwelling catheter Insertion date: 03/23/18 Insertion time: 03:00 Results 03/28/18 03:53 03/28/18 03:53 Cardiac Enzymes 03/27/18 03/28/18 Range/Units 04:09 03:53 B-Natriuretic Peptide 762 H 825 H (0-100) pg/mL Coagulation 03/27/18 03/27/18 03/28/18 Range/Units 04:09 04:09 03:53 PT 11.7 H (9.8-11.6) sec APTT (23.4-31.7) sec B-Natriuretic Peptide 762 H 825 H (0-100) pg/mL 03/28/18 Range/Units 03:53 PT 11.0 (9.8-11.6) sec APTT 32.7 H (23.4-31.7) sec B-Natriuretic Peptide (0-100) pg/mL CBC 03/27/18 03/28/18 Range/Units 04:09 03:53 WBC 10.0 9.2 (4.0-11.0) th/mm3 RBC 4.44 4.39 (4.00-5.30) mil/mm3 Hgb 13.9 13.4 (11.6-15.3) gm/dL Hct 40.3 40.6 (35.0-46.0) % Plt Count 328 347 (150-450) th/mm3 Comprehensive Metabolic Panel 03/27/18 03/28/18 Range/Units 04:09 03:53 Sodium 136 140 (136-145) meq/L Potassium 3.0 L 4.2 D (3.5-5.1) meq/L Chloride 99 106 (98-107) meq/L Carbon Dioxide 29.5 26.8 (21.0-32.0) meq/L BUN 19 H 15 (7-18) mg/dL Creatinine 0.82 0.81 (0.50-1.00) mg/dL Calcium 8.9 8.6 (8.5-10.1) mg/dL Intake and Output 03/28/18 03/28/18 03/28/18 06:59 14:59 22:59 Intake Total 120 / 120 Output Total 250 / 250 Balance -130 / -130 Intake: Oral 120 / 120 Output: Urine 0 / 0 Urine Amount (Catheter) 250 / 250 Female External 250 / 250 Other: # Voids 1 # Incontinent Voids 1 Date of Last Bowel Movement 03/25/18 03/25/18 # Bowel Movements 0 Weight 65.5 kg Assessment and Plan - Assessment (1) Ventricular tachycardia Code(s): I47.2 - Ventricular tachycardia Status: Acute (2) Atrial fibrillation Code(s): I48.91 - Unspecified atrial fibrillation Status: Acute (3) Cardiomyopathy Code(s): I42.9 - Cardiomyopathy, unspecified Status: Acute - Plan 1) VT s/p ablation Atrial paced with AV delay set long to avoid RV pacing, possible cause of VT Possible upgrade to BiV ICD on Friday, will discuss further with Dr. Mitchell 2) CAD BMS to LAD by Dr. Stein
[2018-03-28 20:19] LABS: Free T4 (Free Thyroxine) 1.19 ng/dL (0.76-1.46); Thyroid Stimulating Hormone 7.21 uIU/mL (0.358-3.740)
[2018-03-29] MEDS: Insulin NovoLIN Regular Correctional Sugar Inj SQ SCH ×3 (01:37→12:54)
[2018-03-29 09:05] LABS: Baso # (Auto) 0.1 th/mm3 (0.0-0.2); Baso % (Auto) 1.5 % (0.0-2.0); Eos # (Auto) 0.5 th/mm3 (0.0-0.4); Eos % (Auto) 4.9 % (0.0-4.0); Hematocrit 39.3 % (35.0-46.0); Hemoglobin 13.7 gm/dL (11.6-15.3); Lymph # (Auto) 2.4 th/mm3 (1.0-4.8); Lymph % (Auto) 23.6 % (9.0-44.0); Mean Corpuscular HGB Conc 34.8 % (32.0-36.0); Mean Corpuscular Hemoglobin 31.4 pg (27.0-34.0); Mean Corpuscular Volume 90.2 fL (80.0-100.0); Mean Platelet Volume 9.1 fL (7.0-11.0); Mono # (Auto) 0.7 th/mm3 (0.0-0.9); Mono % (Auto) 7.2 % (0.0-8.0); Neut # (Auto) 6.4 th/mm3 (1.8-7.7); Neut % (Auto) 62.8 % (16.0-70.0); Platelet Count 373 th/mm3 (150-450); Red Blood Count 4.36 mil/mm3 (4.00-5.30); White Blood Count 10.1 th/mm3 (4.0-11.0)
[2018-03-29 09:11] LABS: INR 1.2 Ratio; Prothrombin Time 11.7 sec (9.8-11.6)
[2018-03-29] MEDS: Carvedilol 12.5 MG Tablet PO SCH ×2 (09:25→21:12)
[2018-03-29] MEDS: Ramipril 2.5 MG Capsule PO SCH (09:26)
[2018-03-29] MEDS: Amiodarone 200 MG Tablet PO SCH (09:26)
[2018-03-29] MEDS: Magnesium Oxide 400 MG Tablet PO SCH ×2 (09:27→21:10)
[2018-03-29 09:28] LABS: Anion Gap 9 meq/L (5-15); Blood Urea Nitrogen 25 mg/dL (7-18); Calcium 9.2 mg/dL (8.5-10.1); Carbon Dioxide 27.2 meq/L (21.0-32.0); Chloride 102 meq/L (98-107); Glomerular Filtration Rate 57 mL/min (>89); Glucose,Random 94 mg/dL (74-106); Potassium 3.9 meq/L (3.5-5.1); Sodium 138 meq/L (136-145)
[2018-03-29 09:29] LABS: Alanine Aminotransferase 28 U/L (10-53); Aspartate Aminotransferase 38 U/L (15-37); Phosphorus 3.8 mg/dL (2.5-4.9)
[2018-03-29 09:31] LABS: Alkaline Phosphatase 79 U/L (45-117)
--- NOTE | 2018-03-29 10:56 | P.PNCA ---
Subjective Interval history: assymptomatic in nad Medications and Allergies Active Medications: Active Medications Acetaminophen (Tylenol) 650 mg PO Q4H PRN PRN Reason: Headache, fever, pain 1-4 Last Admin: 03/28/18 02:52 Dose: 650 mg Amiodarone HCl (Cordarone) 200 mg PO DAILY [facility] Last Admin: 03/29/18 09:26 Dose: 200 mg Aspirin (Aspirin Chew) 81 mg PO DAILY [facility] Last Admin: 03/29/18 09:26 Dose: 81 mg Atorvastatin Calcium (Lipitor) 40 mg PO HS [facility] Last Admin: 03/28/18 21:30 Dose: 40 mg Carvedilol (Coreg) 12.5 mg PO BID [facility] Last Admin: 03/29/18 09:25 Dose: 12.5 mg Clopidogrel Bisulfate (Plavix) 75 mg PO DAILY [facility] Last Admin: 03/29/18 09:25 Dose: 75 mg Dextrose (D50w Vial) 50 ml IV.PUSH UNSCH PRN PRN Reason: PER HYPOGLYCEMIA PROTOCOL Furosemide (Lasix Inj) 40 mg IV.PUSH BID@0900,1800 [facility] Last Admin: 03/29/18 09:26 Dose: 40 mg Glucagon (Glucagon Inj) 1 mg OTHER PRN PRN PRN Reason: for Hypoglycemia Protocol Magnesium Sulfate 4 gm/ Sodium (Chloride) 100 mls @ 50 mls/hr IV.SIG UNSCH PRN PRN Reason: For Magnesium 0.9 - 1.1 mg/dL Magnesium Sulfate 2 gm/ Sodium (Chloride) 100 mls @ 50 mls/hr IV.SIG UNSCH PRN PRN Reason: For Magnesium 1.2 - 1.6 mg/dL Last Admin: 03/27/18 21:07 Dose: 50 mls/hr Potassium Chloride (Kcl 40 Meq Premix Inj) 40 meq in 100 mls @ 25 mls/hr IV.SIG Q2H PRN PRN Reason: For Potassium 2.8 - 3.2 mEq/L Potassium Chloride (Kcl 20 Meq Premix Inj) 20 meq in 100 mls @ 50 mls/hr IV.SIG Q2H PRN PRN Reason: For Potassium 3.3 - 3.5 mEq/L Potassium Chloride (Kcl 40 Meq Premix Inj) 40 meq in 100 mls @ 25 mls/hr IV.SIG UNSCH PRN PRN Reason: For Potassium 3.3 - 3.5 mEq/L Potassium Chloride (Kcl 20 Meq Premix Inj) 20 meq in 100 mls @ 50 mls/hr IV.SIG Q2H PRN PRN Reason: For Potassium 2.8 - 3.2 mEq/L Last Admin: 03/27/18 21:08 Dose: 50 mls/hr Potassium Phosphate 30 mmol/ (Sodium Chloride) 260 mls @ 42 mls/hr IV.SIG UNSCH PRN PRN Reason: SEE LABEL COMMENTS Sodium Phosphate 30 mmol/ (Sodium Chloride) 260 mls @ 42 mls/hr IV.SIG UNSCH PRN PRN Reason: For Phosphorus < 2.5 mg/dL Insulin Human Regular (Novolin R Correctional Sugar Inj) 0 units SQ Q6HR [facility]; Protocol Last Admin: 03/29/18 07:18 Dose: Not Given Magnesium Oxide (Mag-Ox) 800 mg PO UNSCH PRN PRN Reason: For Magnesium 1.2 - 1.6 mg/dL Magnesium Oxide (Mag-Ox) 400 mg PO BID [facility] Last Admin: 03/29/18 09:27 Dose: 400 mg Ondansetron HCl (Zofran Inj) 4 mg IV.PUSH Q4H PRN PRN Reason: NAUSEA Patient Medication Teaching (Coumadin Booklet) 1 each OTHER ONCE ONE Stop: 03/29/18 16:01 Pharmacy Profile Note (Coumadin Consult Pharmacy) 1 each OTHER UNSCH PRN PRN Reason: PHARMACY DOCUMENTATION Potassium Bicarb/Potassium Chloride (K-Lyte Cl Eff) 50 meq PO UNSCH PRN PRN Reason: For Potassium 3.3 - 3.5 mEq/L Potassium Phosphate (K-Phos Original) 2,000 mg PO UNSCH PRN PRN Reason: SEE LABEL COMMENTS Potassium Phosphate (K-Phos Original) 2,000 mg PO Q4H PRN PRN Reason: Phosphorus Less Than 2.5 mg/dL Ramipril (Altace) 2.5 mg PO DAILY [facility] Last Admin: 03/29/18 09:26 Dose: 2.5 mg Sodium Chloride (Ns Flush) 2 ml IV.FLUSH BID [facility] Last Admin: 03/29/18 09:27 Dose: 2 ml Sodium Chloride (Ns Flush) 2 ml IV.FLUSH PRN PRN PRN Reason: FLUSH AFTER USING IV ACCESS Last Admin: 03/23/18 22:39 Dose: 2 ml Warfarin Sodium (Coumadin) 5 mg PO DAILY@1600 [facility] Stop: 03/29/18 16:01 Last Admin: 03/28/18 16:24 Dose: 5 mg Warfarin Sodium (Coumadin) 3 mg PO DAILY@1600 [facility] Allergies Allergy/AdvReac Type Severity Reaction Status Date / Time No Known Allergies Allergy Verified 03/20/18 12:05 Physical Exam Vital signs: Vital Signs 03/28/18 11:00 03/28/18 11:09 03/28/18 12:00 Temperature 98.2 F Pulse Rate 79 79 79 Respiratory Rate 17 16 25 H Blood Pressure 85/51 L 87/58 L 103/65 Pulse Oximetry 95 96 97 03/28/18 12:05 03/28/18 13:00 03/28/18 13:01 Temperature 98.2 F Pulse Rate 79 79 79 Respiratory Rate 25 H 30 H 32 H Blood Pressure 103/65 113/58 L Pulse Oximetry 97 97 97 03/28/18 14:00 03/28/18 15:00 03/28/18 16:00 Temperature 97.9 F Pulse Rate 79 79 79 Respiratory Rate 20 16 15 Blood Pressure 105/59 L 102/59 L 112/64 Pulse Oximetry 95 98 99 03/28/18 20:00 03/29/18 00:00 03/29/18 04:00 Temperature 97.6 F 97.6 F 97.4 F L Pulse Rate 80 80 80 Respiratory Rate 18 18 17 Blood Pressure 114/63 96/51 L 122/69 Pulse Oximetry 96 96 94 L 03/29/18 08:00 Temperature 98.1 F Pulse Rate 80 Respiratory Rate 18 Blood Pressure 106/60 Pulse Oximetry 95 Intake & Output 03/28/18 03/29/18 03/29/18 18:59 06:59 18:59 Intake Total 0 / 0 Output Total 1500 / 1500 800 / 800 Balance -1500 / -1500 -800 / -800 Weight 60.5 kg Intake: Oral 0 / 0 Output: Urine 800 / 800 Urine Amount (Catheter) 1500 / 1500 Female External 1500 / 1500 Other: Date of Last Bowel Movement 03/25/18 # Bowel Movements 0 - Constitutional no acute distress - Routine HEENT Exam Head: Present: normocephalic - Routine Neck Exam Present: supple - Routine Respiratory Exam Present: CTA bilaterally - Routine Cardiovascular Exam Present: S1, S2 - Routine Abdominal Exam Present: soft - Routine Extremities Exam Comments: no ramón - Urinary Catheter Management Female External Cath placed during this visit: yes Reason for continuing: Not indwelling catheter Insertion date: 03/23/18 Insertion time: 03:00 Results 03/29/18 07:10 03/29/18 07:10 Cardiac Enzymes 03/28/18 03/29/18 03/29/18 Range/Units 03:53 07:10 07:10 AST 38 H (15-37) U/L B-Natriuretic Peptide 825 H 210 H (0-100) pg/mL Coagulation 03/28/18 03/28/18 03/29/18 Range/Units 03:53 03:53 07:10 PT 11.0 (9.8-11.6) sec APTT 32.7 H (23.4-31.7) sec B-Natriuretic Peptide 825 H 210 H (0-100) pg/mL 03/29/18 Range/Units 07:10 PT 11.7 H (9.8-11.6) sec APTT (23.4-31.7) sec B-Natriuretic Peptide (0-100) pg/mL CBC 03/28/18 03/29/18 Range/Units 03:53 07:10 WBC 9.2 10.1 (4.0-11.0) th/mm3 RBC 4.39 4.36 (4.00-5.30) mil/mm3 Hgb 13.4 13.7 (11.6-15.3) gm/dL Hct 40.6 39.3 (35.0-46.0) % Plt Count 347 373 (150-450) th/mm3 Neut # (Auto) 6.4 (1.8-7.7) th/mm3 Lymph # (Auto) 2.4 (1.0-4.8) th/mm3 [place] # (Auto) 0.7 (0.0-0.9) th/mm3 Eos # (Auto) 0.5 H (0.0-0.4) th/mm3 Baso # (Auto) 0.1 (0.0-0.2) th/mm3 Comprehensive Metabolic Panel 03/28/18 03/29/18 Range/Units 03:53 07:10 Sodium 140 138 (136-145) meq/L Potassium 4.2 D 3.9 (3.5-5.1) meq/L Chloride 106 102 (98-107) meq/L Carbon Dioxide 26.8 27.2 (21.0-32.0) meq/L BUN 15 25 H (7-18) mg/dL Creatinine 0.81 0.99 (0.50-1.00) mg/dL Calcium 8.6 9.2 (8.5-10.1) mg/dL AST 38 H (15-37) U/L ALT 28 (10-53) U/L Alkaline Phosphatase 79 (45-117) U/L Total Protein 7.0 (6.4-8.2) g/dL Albumin 3.0 L (3.4-5.0) g/dL Intake and Output 03/28/18 03/29/18 03/29/18 22:59 06:59 14:59 Intake Total 0 / 0 Output Total 1500 / 1500 800 / 800 Balance -1500 / -1500 -800 / -800 Intake: Oral 0 / 0 Output: Urine 800 / 800 Urine Amount (Catheter) 1500 / 1500 Female External 1500 / 1500 Other: Date of Last Bowel Movement 03/25/18 # Bowel Movements 0 Weight 60.5 kg Assessment and Plan - Assessment (1) NSTEMI (non-ST elevated myocardial infarction) Code(s): I21.4 - Non-ST elevation (NSTEMI) myocardial infarction Status: Acute (2) CAD (coronary artery disease) Code(s): I25.10 - Atherosclerotic heart disease of [place] coronary artery without angina pectoris Status: Chronic (3) Cardiomyopathy Code(s): I42.9 - Cardiomyopathy, unspecified Status: Acute (4) Tobacco abuse Code(s): Z72.0 - Tobacco use Status: Chronic (5) Atrial fibrillation Code(s): I48.91 - Unspecified atrial fibrillation Status: Acute - Plan 1) VT s/p ablation Atrial paced with AV delay set long to avoid RV pacing, possible cause of VT Possible upgrade to BiV ICD on Friday, will discuss further with Dr. Mitchell 2) CAD BMS to LAD by Dr. Stein
[2018-03-29] MEDS ORDERED: Dextrose 50% in Water 50 ML Vial IV.PUSH PRN (12:43)
--- NOTE | 2018-03-29 12:44 | P.PN ---
Subjective Interval history: Follow-up for STEMI, atrial fibrillation, wide complex tachycardia. Patient is currently doing well. Denies any chest pain, shortness of breath, fever or chills. Physical Exam Vital signs: Vital Signs 03/28/18 13:00 03/28/18 13:01 03/28/18 14:00 Temperature Pulse Rate 79 79 79 Respiratory Rate 30 H 32 H 20 Blood Pressure 113/58 L 105/59 L Pulse Oximetry 97 97 95 03/28/18 15:00 03/28/18 16:00 03/28/18 20:00 Temperature 97.9 F 97.6 F Pulse Rate 79 79 80 Respiratory Rate 16 15 18 Blood Pressure 102/59 L 112/64 114/63 Pulse Oximetry 98 99 96 03/29/18 00:00 03/29/18 04:00 03/29/18 08:00 Temperature 97.6 F 97.4 F L 98.1 F Pulse Rate 80 80 80 Respiratory Rate 18 17 18 Blood Pressure 96/51 L 122/69 106/60 Pulse Oximetry 96 94 L 95 03/29/18 12:00 Temperature 97.4 F L Pulse Rate 80 Respiratory Rate 17 Blood Pressure 100/60 Pulse Oximetry 95 Intake & Output 03/28/18 03/29/18 03/29/18 18:59 06:59 18:59 Intake Total 0 / 0 Output Total 1500 / 1500 800 / 800 Balance -1500 / -1500 -800 / -800 Weight 60.5 kg Intake: Oral 0 / 0 Output: Urine 800 / 800 Urine Amount (Catheter) 1500 / 1500 Female External 1500 / 1500 Other: Date of Last Bowel Movement 03/25/18 # Bowel Movements 0 Narrative: GENERAL: Alert, oriented x3, NAD. SKIN: Warm and dry. HEAD: Normocephalic. EYES: No scleral icterus. No injection or drainage. NECK: Supple, trachea midline. No JVD or lymphadenopathy. CARDIOVASCULAR: Regular rate and rhythm without murmurs, gallops, or rubs. RESPIRATORY: Breath sounds equal bilaterally. No accessory muscle use. GASTROINTESTINAL: Abdomen soft, non-tender, nondistended. MUSCULOSKELETAL: No cyanosis, or edema. BACK: Nontender without obvious deformity. No CVA tenderness. - Urinary Catheter Management Female External Cath placed during this visit: yes Reason for continuing: Not indwelling catheter Insertion date: 03/23/18 Insertion time: 03:00 Results - Labs CBC & Chem 7: 03/29/18 07:10 03/29/18 07:10 Laboratory Results - last 24 hr 03/28/18 03/28/18 03/28/18 18:25 19:29 20:04 WBC RBC Hgb Hct MCV MCH MCHC RDW Plt Count MPV Neut % (Auto) Lymph % (Auto) [place] % (Auto) Eos % (Auto) Baso % (Auto) Neut # (Auto) Lymph # (Auto) [place] # (Auto) Eos # (Auto) Baso # (Auto) WBC Differential Differential Comment PT INR Sodium Potassium Chloride Carbon Dioxide Anion Gap BUN Creatinine Estimated GFR POC Glucose 168 H 121 H Random Glucose Calcium Phosphorus Magnesium Total Bilirubin AST ALT Alkaline Phosphatase B-Natriuretic Peptide Total Protein Albumin TSH 7.210 H Free T4 1.19 03/29/18 03/29/18 03/29/18 01:36 07:08 07:10 WBC RBC Hgb Hct MCV MCH MCHC RDW Plt Count MPV Neut % (Auto) Lymph % (Auto) [place] % (Auto) Eos % (Auto) Baso % (Auto) Neut # (Auto) Lymph # (Auto) [place] # (Auto) Eos # (Auto) Baso # (Auto) WBC Differential Differential Comment PT INR Sodium Potassium Chloride Carbon Dioxide Anion Gap BUN Creatinine Estimated GFR POC Glucose 141 H 105 Random Glucose Calcium Phosphorus Magnesium Total Bilirubin AST ALT Alkaline Phosphatase B-Natriuretic Peptide 210 H Total Protein Albumin TSH Free T4 03/29/18 03/29/18 03/29/18 07:10 07:10 07:10 WBC 10.1 RBC 4.36 Hgb 13.7 Hct 39.3 MCV 90.2 MCH 31.4 MCHC 34.8 RDW 15.0 Plt Count 373 MPV 9.1 Neut % (Auto) 62.8 Lymph % (Auto) 23.6 [place] % (Auto) 7.2 Eos % (Auto) 4.9 H Baso % (Auto) 1.5 Neut # (Auto) 6.4 Lymph # (Auto) 2.4 [place] # (Auto) 0.7 Eos # (Auto) 0.5 H Baso # (Auto) 0.1 WBC Differential . Differential Comment Auto diff final PT 11.7 H INR 1.2 Sodium 138 Potassium 3.9 Chloride 102 Carbon Dioxide 27.2 Anion Gap 9 BUN 25 H Creatinine 0.99 Estimated GFR 57 L POC Glucose Random Glucose 94 Calcium 9.2 Phosphorus 3.8 Magnesium 2.0 Total Bilirubin 0.3 AST 38 H ALT 28 Alkaline Phosphatase 79 B-Natriuretic Peptide Total Protein 7.0 Albumin 3.0 L TSH Free T4 03/29/18 11:54 WBC RBC Hgb Hct MCV MCH MCHC RDW Plt Count MPV Neut % (Auto) Lymph % (Auto) [place] % (Auto) Eos % (Auto) Baso % (Auto) Neut # (Auto) Lymph # (Auto) [place] # (Auto) Eos # (Auto) Baso # (Auto) WBC Differential Differential Comment PT INR Sodium Potassium Chloride Carbon Dioxide Anion Gap BUN Creatinine Estimated GFR POC Glucose 216 H Random Glucose Calcium Phosphorus Magnesium Total Bilirubin AST ALT Alkaline Phosphatase B-Natriuretic Peptide Total Protein Albumin TSH Free T4 - Procedures Cardiac catheterization on 03/20/2018. Stent placed to proximal LAD. Assessment and Plan - Plan Ms. Cook is a pleasant 62-year-old female with a long history of coronary artery disease, cardiomyopathy, status post CABG, AICD placement as well as atrial fibrillation who presented to the emergency department after she passed out. She did not have any chest pain prior to passing out but she reported to have lightheadedness. Upon arrival to the emergency department, STEMI alert was initiated. Patient subsequently underwent emergent cardiac catheterization where she received a stent to the proximal LAD. ST elevation myocardial infarction Emergent PCI stent placed to proximal LAD. Continue aspirin 81 mg, Plavix 75 mg. Continue atorvastatin 40 mg nightly, carvedilol 12.5 mg p.o. twice daily. Ramipril 2.5 mg daily. Ischemic cardiomyopathy Atrial fibrillation with RVR/Atrial flutter Wide-complex tachycardia INR 1.2. Warfarin dosing per pharmacy. Continue beta-sanjay. Likely BiV AICD placement by Dr. Mitchell on 03/30/2018. N.p.o. at midnight today. Hyperglycemia -Will maintain sliding scale insulin. If BG remains normal, we will d/c sliding scale insulin protocol. Full code. On warfarin. INR 1.2.
--- NOTE | 2018-03-29 12:51 | ECG ---
Date Performed: 03/28/2018 Time Performed: 18:43:14 PTAGE: 62 years EKG: ELECTRONIC ATRIAL PACEMAKER INTRAVENTRICULAR CONDUCTION DELAY LEFT VENTRICULAR HYPERTROPHY AND ST-T CHANGE ANTEROLATERAL MYOCARDIAL INFARCTION , PROBABLY RECENT ACUTE MD Since the PREVIOUS TRACING , no significant change noted PREVIOUS TRACIN03/27/2018 19.28 DOCTOR: Blade Veronica Interpretating Date/Time 03/29/2018 12:50:34
--- NOTE | 2018-03-29 13:49 | P.PNCA ---
Subjective Interval history: Follow up for Dr. Mitchell No events overnight Telemetry with atrial paced, prolonged AV delay for belkofski QRS Did have episodes of NSVT 6-12 beats throughout the morning Medications and Allergies Active Medications: Active Medications Acetaminophen (Tylenol) 650 mg PO Q4H PRN PRN Reason: Headache, fever, pain 1-4 Last Admin: 03/28/18 02:52 Dose: 650 mg Amiodarone HCl (Cordarone) 200 mg PO DAILY [facility] Last Admin: 03/29/18 09:26 Dose: 200 mg Aspirin (Aspirin Chew) 81 mg PO DAILY [facility] Last Admin: 03/29/18 09:26 Dose: 81 mg Atorvastatin Calcium (Lipitor) 40 mg PO HS [facility] Last Admin: 03/28/18 21:30 Dose: 40 mg Carvedilol (Coreg) 12.5 mg PO BID [facility] Last Admin: 03/29/18 09:25 Dose: 12.5 mg Clopidogrel Bisulfate (Plavix) 75 mg PO DAILY [facility] Last Admin: 03/29/18 09:25 Dose: 75 mg Dextrose (D50w Vial) 50 ml IV.PUSH UNSCH PRN PRN Reason: PER HYPOGLYCEMIA PROTOCOL Furosemide (Lasix Inj) 40 mg IV.PUSH BID@0900,1800 [facility] Last Admin: 03/29/18 09:26 Dose: 40 mg Glucagon (Glucagon Inj) 1 mg OTHER PRN PRN PRN Reason: for Hypoglycemia Protocol Insulin Aspart (Novolog Insulin Correctional Sugar Inj) 0 unit SQ [facility]; Protocol Magnesium Oxide (Mag-Ox) 400 mg PO BID [facility] Last Admin: 03/29/18 09:27 Dose: 400 mg Ondansetron HCl (Zofran Inj) 4 mg IV.PUSH Q4H PRN PRN Reason: NAUSEA Patient Medication Teaching (Coumadin Booklet) 1 each OTHER ONCE ONE Stop: 03/29/18 16:01 Pharmacy Profile Note (Coumadin Consult Pharmacy) 1 each OTHER UNSCH PRN PRN Reason: PHARMACY DOCUMENTATION Ramipril (Altace) 2.5 mg PO DAILY [facility] Last Admin: 03/29/18 09:26 Dose: 2.5 mg Sodium Chloride (Ns Flush) 2 ml IV.FLUSH BID [facility] Last Admin: 03/29/18 09:27 Dose: 2 ml Sodium Chloride (Ns Flush) 2 ml IV.FLUSH PRN PRN PRN Reason: FLUSH AFTER USING IV ACCESS Last Admin: 11/26/18 22:39 Dose: 2 ml Warfarin Sodium (Coumadin) 5 mg PO DAILY@1600 [facility] Stop: 03/29/18 16:01 Last Admin: 03/28/18 16:24 Dose: 5 mg Warfarin Sodium (Coumadin) 3 mg PO DAILY@1600 [facility] Allergies Allergy/AdvReac Type Severity Reaction Status Date / Time No Known Allergies Allergy Verified 03/20/18 12:05 Physical Exam Vital signs: Vital Signs 03/28/18 14:00 03/28/18 15:00 03/28/18 16:00 Temperature 97.9 F Pulse Rate 79 79 79 Respiratory Rate 20 16 15 Blood Pressure 105/59 L 102/59 L 112/64 Pulse Oximetry 95 98 99 03/28/18 20:00 03/29/18 00:00 03/29/18 04:00 Temperature 97.6 F 97.6 F 97.4 F L Pulse Rate 80 80 80 Respiratory Rate 18 18 17 Blood Pressure 114/63 96/51 L 122/69 Pulse Oximetry 96 96 94 L 03/29/18 08:00 03/29/18 12:00 03/29/18 13:05 Temperature 98.1 F 97.4 F L Pulse Rate 80 80 Respiratory Rate 18 17 Blood Pressure 106/60 100/60 Pulse Oximetry 95 95 95 Intake & Output 03/28/18 03/29/18 03/29/18 18:59 06:59 18:59 Intake Total 0 / 0 Output Total 1500 / 1500 800 / 800 Balance -1500 / -1500 -800 / -800 Weight 60.5 kg Intake: Oral 0 / 0 Output: Urine 800 / 800 Urine Amount (Catheter) 1500 / 1500 Female External 1500 / 1500 Other: Date of Last Bowel Movement 03/25/18 # Bowel Movements 0 Narrative: GENERAL: Alert, oriented x3, NAD. SKIN: Warm and dry. HEAD: Normocephalic. EYES: No scleral icterus. No injection or drainage. NECK: Supple, trachea midline. No JVD or lymphadenopathy. CARDIOVASCULAR: Regular rate and rhythm without murmurs, gallops, or rubs. RESPIRATORY: Breath sounds equal bilaterally. No accessory muscle use. GASTROINTESTINAL: Abdomen soft, non-tender, nondistended. MUSCULOSKELETAL: No cyanosis, or edema. BACK: Nontender without obvious deformity. No CVA tenderness. - Urinary Catheter Management Female External Cath placed during this visit: yes Reason for continuing: Not indwelling catheter Insertion date: 03/23/18 Insertion time: 03:00 Results 03/29/18 07:10 03/29/18 07:10 Cardiac Enzymes 03/28/18 03/29/18 03/29/18 Range/Units 03:53 07:10 07:10 AST 38 H (15-37) U/L B-Natriuretic Peptide 825 H 210 H (0-100) pg/mL Coagulation 03/28/18 03/28/18 03/29/18 Range/Units 03:53 03:53 07:10 PT 11.0 (9.8-11.6) sec APTT 32.7 H (23.4-31.7) sec B-Natriuretic Peptide 825 H 210 H (0-100) pg/mL 03/29/18 Range/Units 07:10 PT 11.7 H (9.8-11.6) sec APTT (23.4-31.7) sec B-Natriuretic Peptide (0-100) pg/mL CBC 03/28/18 03/29/18 Range/Units 03:53 07:10 WBC 9.2 10.1 (4.0-11.0) th/mm3 RBC 4.39 4.36 (4.00-5.30) mil/mm3 Hgb 13.4 13.7 (11.6-15.3) gm/dL Hct 40.6 39.3 (35.0-46.0) % Plt Count 347 373 (150-450) th/mm3 Neut # (Auto) 6.4 (1.8-7.7) th/mm3 Lymph # (Auto) 2.4 (1.0-4.8) th/mm3 [place] # (Auto) 0.7 (0.0-0.9) th/mm3 Eos # (Auto) 0.5 H (0.0-0.4) th/mm3 Baso # (Auto) 0.1 (0.0-0.2) th/mm3 Comprehensive Metabolic Panel 03/28/18 03/29/18 Range/Units 03:53 07:10 Sodium 140 138 (136-145) meq/L Potassium 4.2 D 3.9 (3.5-5.1) meq/L Chloride 106 102 (98-107) meq/L Carbon Dioxide 26.8 27.2 (21.0-32.0) meq/L BUN 15 25 H (7-18) mg/dL Creatinine 0.81 0.99 (0.50-1.00) mg/dL Calcium 8.6 9.2 (8.5-10.1) mg/dL AST 38 H (15-37) U/L ALT 28 (10-53) U/L Alkaline Phosphatase 79 (45-117) U/L Total Protein 7.0 (6.4-8.2) g/dL Albumin 3.0 L (3.4-5.0) g/dL Intake and Output 03/28/18 03/29/18 03/29/18 22:59 06:59 14:59 Intake Total 0 / 0 Output Total 1500 / 1500 800 / 800 Balance -1500 / -1500 -800 / -800 Intake: Oral 0 / 0 Output: Urine 800 / 800 Urine Amount (Catheter) 1500 / 1500 Female External 1500 / 1500 Other: Date of Last Bowel Movement 03/25/18 # Bowel Movements 0 Weight 60.5 kg Assessment and Plan - Assessment (1) Ventricular tachycardia Code(s): I47.2 - Ventricular tachycardia Status: Acute (2) Atrial fibrillation Code(s): I48.91 - Unspecified atrial fibrillation Status: Acute (3) Cardiomyopathy Code(s): I42.9 - Cardiomyopathy, unspecified Status: Acute - Plan 1) VT s/p ablation Atrial paced with AV delay set long to avoid RV pacing, possible cause of VT NSVT noted this morning Discussed with Dr. Mitchell Upgrade to BiV ICD tomorrow afternoon, NPO after breakfast 2) CAD BMS to LAD by Dr. Stein
[2018-03-29 14:25] LABS: Hemoglobin A1c 5.5 % (4.3-6.0)
[2018-03-29] MEDS: Insulin NovoLOG Aspart Correctional Sugar Inj SQ SCH (21:12)
[2018-03-30 05:48] LABS: Hemoglobin 13.3 gm/dL (11.6-15.3); Mean Corpuscular HGB Conc 34.1 % (32.0-36.0); Mean Corpuscular Hemoglobin 31.3 pg (27.0-34.0); Mean Corpuscular Volume 91.9 fL (80.0-100.0); Mean Platelet Volume 8.8 fL (7.0-11.0); Platelet Count 397 th/mm3 (150-450); Red Blood Count 4.25 mil/mm3 (4.00-5.30); Red Cell Distribution Width 15.3 % (11.6-17.2); White Blood Count 9.6 th/mm3 (4.0-11.0)
[2018-03-30 06:00] LABS: INR 1.2 Ratio; Prothrombin Time 12.4 sec (9.8-11.6)
[2018-03-30 08:35] LABS: Calcium 9.4 mg/dL (8.5-10.1); Carbon Dioxide 28.4 meq/L (21.0-32.0); Magnesium 2.2 mg/dL (1.5-2.5); Phosphorus 3.9 mg/dL (2.5-4.9); Potassium 3.9 meq/L (3.5-5.1)
[2018-03-30] MEDS: Insulin NovoLOG Aspart Correctional Sugar Inj SQ SCH (10:31)
[2018-03-30] MEDS: Ramipril 2.5 MG Capsule PO SCH (10:32)
[2018-03-30] MEDS: Carvedilol 12.5 MG Tablet PO SCH ×2 (10:33→22:32)
[2018-03-30] MEDS: Amiodarone 200 MG Tablet PO SCH (10:33)
[2018-03-30] MEDS: Magnesium Oxide 400 MG Tablet PO SCH ×2 (10:33→22:35)
--- NOTE | 2018-03-30 11:36 | P.PN ---
Subjective Interval history: Follow-up for STEMI, atrial fibrillation, wide complex tachycardia. Patient is currently resting in bed. Denies any chest pain, shortness of breath, fever or chills. She is going for BiV AICD placement later today. Physical Exam Vital signs: Vital Signs 03/29/18 12:00 03/29/18 13:05 03/29/18 16:00 Temperature 97.4 F L 98.1 F Pulse Rate 79 80 Respiratory Rate 17 18 Blood Pressure 100/60 111/64 Pulse Oximetry 95 95 95 03/29/18 20:00 03/30/18 00:00 03/30/18 04:00 Temperature 97.5 F L 98.3 F 97.7 F Pulse Rate 80 80 80 Respiratory Rate 18 17 18 Blood Pressure 96/55 L 111/57 L 105/55 L Pulse Oximetry 95 96 95 03/30/18 08:00 Temperature 97.8 F Pulse Rate 80 Respiratory Rate 18 Blood Pressure 105/58 L Pulse Oximetry 95 Intake & Output 03/29/18 03/30/18 03/30/18 18:59 06:59 18:59 Intake Total 240 / 240 Output Total 1000 / 1000 Balance -1000 / -1000 240 / 240 Weight 60.7 kg Intake: Oral 240 / 240 Output: Urine 1000 / 1000 Other: # Bowel Movements 1 0 Narrative: GENERAL: Alert, oriented x3, NAD. SKIN: Warm and dry. HEAD: Normocephalic. EYES: No scleral icterus. No injection or drainage. NECK: Supple, trachea midline. No JVD or lymphadenopathy. CARDIOVASCULAR: Regular rate and rhythm without murmurs, gallops, or rubs. RESPIRATORY: Breath sounds equal bilaterally. No accessory muscle use. GASTROINTESTINAL: Abdomen soft, non-tender, nondistended. MUSCULOSKELETAL: No cyanosis, or edema. BACK: Nontender without obvious deformity. No CVA tenderness. - Urinary Catheter Management Female External Cath placed during this visit: yes Reason for continuing: Not indwelling catheter Insertion date: 03/23/18 Insertion time: 03:00 Results - Labs CBC & Chem 7: 03/30/18 04:00 03/30/18 07:55 Laboratory Results - last 24 hr 03/28/18 03/29/18 03/29/18 19:29 11:54 17:07 WBC RBC Hgb Hct MCV MCH MCHC RDW Plt Count MPV PT INR Sodium Potassium Chloride Carbon Dioxide Anion Gap BUN Creatinine Estimated GFR POC Glucose 216 H 89 Random Glucose Hemoglobin A1c 5.5 Calcium Phosphorus Magnesium 03/29/18 03/30/18 03/30/18 20:19 02:56 04:00 WBC 9.6 RBC 4.25 Hgb 13.3 Hct 39.0 MCV 91.9 MCH 31.3 MCHC 34.1 RDW 15.3 Plt Count 397 MPV 8.8 PT INR Sodium Potassium Chloride Carbon Dioxide Anion Gap BUN Creatinine Estimated GFR POC Glucose 129 H 116 H Random Glucose Hemoglobin A1c Calcium Phosphorus Magnesium 03/30/18 03/30/18 03/30/18 04:00 05:45 07:55 WBC RBC Hgb Hct MCV MCH MCHC RDW Plt Count MPV PT 12.4 H INR 1.2 Sodium 137 Potassium 3.9 Chloride 102 Carbon Dioxide 28.4 Anion Gap 7 BUN 31 H Creatinine 1.10 H Estimated GFR 51 L POC Glucose 106 Random Glucose 107 H Hemoglobin A1c Calcium 9.4 Phosphorus 3.9 Magnesium 2.2 03/30/18 09:07 WBC RBC Hgb Hct MCV MCH MCHC RDW Plt Count MPV PT INR Sodium Potassium Chloride Carbon Dioxide Anion Gap BUN Creatinine Estimated GFR POC Glucose 105 Random Glucose Hemoglobin A1c Calcium Phosphorus Magnesium - Procedures Cardiac catheterization on 03/20/2018. Stent placed to proximal LAD. Assessment and Plan - Plan Ms. Cook is a pleasant 62-year-old female with a long history of coronary artery disease, cardiomyopathy, status post CABG, AICD placement as well as atrial fibrillation who presented to the emergency department after she passed out. She did not have any chest pain prior to passing out but she reported to have lightheadedness. Upon arrival to the emergency department, STEMI alert was initiated. Patient subsequently underwent emergent cardiac catheterization where she received a stent to the proximal LAD. ST elevation myocardial infarction Emergent PCI stent placed to proximal LAD. Continue aspirin 81 mg, Plavix 75 mg. Continue atorvastatin 40 mg nightly, carvedilol 12.5 mg p.o. twice daily. Ramipril 2.5 mg daily. Ischemic cardiomyopathy Atrial fibrillation with RVR/Atrial flutter Wide-complex tachycardia INR 1.2. Warfarin dosing per pharmacy. Continue beta-sanjay. Currently NPO for BiV AICD placement. Hyperglycemia -Blood glucose remains normal. Will DC sliding scale insulin after procedure today. Full code. On warfarin. INR 1.2.
--- NOTE | 2018-03-30 14:16 | P.PNCA ---
Subjective Interval history: assymptomatic, in nad Medications and Allergies Active Medications: Active Medications Acetaminophen (Tylenol) 650 mg PO Q4H PRN PRN Reason: Headache, fever, pain 1-4 Last Admin: 03/28/18 02:52 Dose: 650 mg Amiodarone HCl (Cordarone) 200 mg PO DAILY [facility] Last Admin: 03/30/18 10:33 Dose: 200 mg Aspirin (Aspirin Chew) 81 mg PO DAILY [facility] Last Admin: 03/30/18 10:33 Dose: 81 mg Atorvastatin Calcium (Lipitor) 40 mg PO HS [facility] Last Admin: 03/29/18 21:09 Dose: 40 mg Carvedilol (Coreg) 12.5 mg PO BID [facility] Last Admin: 03/30/18 10:33 Dose: Not Given Clopidogrel Bisulfate (Plavix) 75 mg PO DAILY [facility] Last Admin: 03/30/18 10:33 Dose: 75 mg Furosemide (Lasix Inj) 40 mg IV.PUSH BID@0900,1800 [facility] Last Admin: 03/30/18 10:33 Dose: 40 mg Magnesium Oxide (Mag-Ox) 400 mg PO BID [facility] Last Admin: 03/30/18 10:33 Dose: 400 mg Ondansetron HCl (Zofran Inj) 4 mg IV.PUSH Q4H PRN PRN Reason: NAUSEA Pharmacy Profile Note (Coumadin Consult Pharmacy) 1 each OTHER UNSCH PRN PRN Reason: PHARMACY DOCUMENTATION Ramipril (Altace) 2.5 mg PO DAILY [facility] Last Admin: 03/30/18 10:32 Dose: Not Given Sodium Chloride (Ns Flush) 2 ml IV.FLUSH BID [facility] Last Admin: 03/30/18 10:34 Dose: 2 ml Sodium Chloride (Ns Flush) 2 ml IV.FLUSH PRN PRN PRN Reason: FLUSH AFTER USING IV ACCESS Last Admin: 03/23/18 22:39 Dose: 2 ml Warfarin Sodium (Coumadin) 5 mg PO DAILY@1600 [facility] Allergies Allergy/AdvReac Type Severity Reaction Status Date / Time No Known Allergies Allergy Verified 03/20/18 12:05 Physical Exam Vital signs: Vital Signs 03/29/18 16:00 03/29/18 20:00 03/30/18 00:00 Temperature 98.1 F 97.5 F L 98.3 F Pulse Rate 80 80 80 Respiratory Rate 18 18 17 Blood Pressure 111/64 96/55 L 111/57 L Pulse Oximetry 95 95 96 03/30/18 04:00 03/30/18 08:00 03/30/18 12:00 Temperature 97.7 F 97.8 F 97.6 F Pulse Rate 80 80 80 Respiratory Rate 18 18 17 Blood Pressure 105/55 L 105/58 L 105/56 L Pulse Oximetry 95 95 95 Intake & Output 03/29/18 03/30/18 03/30/18 18:59 06:59 18:59 Intake Total 240 / 240 Output Total 1000 / 1000 Balance -1000 / -1000 240 / 240 Weight 60.7 kg Intake: Oral 240 / 240 Output: Urine 1000 / 1000 Other: # Bowel Movements 1 0 - Constitutional no acute distress - Routine HEENT Exam Head: Present: normocephalic - Routine Neck Exam Present: supple - Routine Respiratory Exam Present: CTA bilaterally - Routine Cardiovascular Exam Present: S1, S2 - Routine Abdominal Exam Present: soft - Routine Extremities Exam Comments: no ramón - Urinary Catheter Management Female External Cath placed during this visit: yes Reason for continuing: Not indwelling catheter Insertion date: 03/23/18 Insertion time: 03:00 Results 03/30/18 04:00 03/30/18 07:55 Cardiac Enzymes 03/29/18 03/29/18 Range/Units 07:10 07:10 AST 38 H (15-37) U/L B-Natriuretic Peptide 210 H (0-100) pg/mL Coagulation 03/29/18 03/29/18 03/30/18 Range/Units 07:10 07:10 04:00 PT 11.7 H 12.4 H (9.8-11.6) sec B-Natriuretic Peptide 210 H (0-100) pg/mL CBC 03/29/18 03/30/18 Range/Units 07:10 04:00 WBC 10.1 9.6 (4.0-11.0) th/mm3 RBC 4.36 4.25 (4.00-5.30) mil/mm3 Hgb 13.7 13.3 (11.6-15.3) gm/dL Hct 39.3 39.0 (35.0-46.0) % Plt Count 373 397 (150-450) th/mm3 Neut # (Auto) 6.4 (1.8-7.7) th/mm3 Lymph # (Auto) 2.4 (1.0-4.8) th/mm3 [place] # (Auto) 0.7 (0.0-0.9) th/mm3 Eos # (Auto) 0.5 H (0.0-0.4) th/mm3 Baso # (Auto) 0.1 (0.0-0.2) th/mm3 Comprehensive Metabolic Panel 03/29/18 03/30/18 Range/Units 07:10 07:55 Sodium 138 137 (136-145) meq/L Potassium 3.9 3.9 (3.5-5.1) meq/L Chloride 102 102 (98-107) meq/L Carbon Dioxide 27.2 28.4 (21.0-32.0) meq/L BUN 25 H 31 H (7-18) mg/dL Creatinine 0.99 1.10 H (0.50-1.00) mg/dL Calcium 9.2 9.4 (8.5-10.1) mg/dL AST 38 H (15-37) U/L ALT 28 (10-53) U/L Alkaline Phosphatase 79 (45-117) U/L Total Protein 7.0 (6.4-8.2) g/dL Albumin 3.0 L (3.4-5.0) g/dL Intake and Output 03/29/18 03/30/18 03/30/18 22:59 06:59 14:59 Intake Total 240 / 240 Output Total 1000 / 1000 Balance -1000 / -1000 240 / 240 Intake: Oral 240 / 240 Output: Urine 1000 / 1000 Other: # Bowel Movements 1 0 Weight 60.7 kg Assessment and Plan - Assessment (1) NSTEMI (non-ST elevated myocardial infarction) Code(s): I21.4 - Non-ST elevation (NSTEMI) myocardial infarction Status: Acute (2) CAD (coronary artery disease) Code(s): I25.10 - Atherosclerotic heart disease of [place] coronary artery without angina pectoris Status: Chronic (3) Cardiomyopathy Code(s): I42.9 - Cardiomyopathy, unspecified Status: Acute (4) Tobacco abuse Code(s): Z72.0 - Tobacco use Status: Chronic (5) Atrial fibrillation Code(s): I48.91 - Unspecified atrial fibrillation Status: Acute - Plan 1) VT s/p ablation Atrial paced with AV delay set long to avoid RV pacing, possible cause of VT NSVT noted this morning Discussed with Dr. Mitchell Upgrade to BiV ICD tomorrow afternoon, NPO after breakfast 2) CAD BMS to LAD by Dr. Stein
[2018-03-30] MEDS ORDERED: Influenza (Quadrivalent) Vaccine 0.5 ML Syringe IM ONE (17:00)
[2018-03-30] MEDS ORDERED: Lidocaine 2% Inj 50 ML Vial ONE (17:15)
[2018-03-30] MEDS ORDERED: ceFAZolin 1 GM Premix Inj 2 GM/100 ML FROZ.PIGGY IV.SIG ONE (17:15)
[2018-03-30] MEDS ORDERED: Heparin/NS PF Inj 500 ML ONE (17:16)
[2018-03-30] MEDS ORDERED: Sodium Chlor 0.9% Inj 250 ML ONE (17:16)
[2018-03-30] MEDS ORDERED: Iohexol 350 MG/ML 50 ML Vial (for EPS) IVCONTRAST ONE (18:00)
--- NOTE | 2018-03-30 18:52 | CATHPROC ---
Patient Name: Valery Cook Study #: [id number] Initial MD: Bri Mitchell Date of : 1955 Study Date: 03/30/2018 Cardiac Catheterization Report 03/30/2018 6:54:10 PM Financial #: [id number] 1 of 9 Patient Name: Valery Cook Study #: [id number] Initial MD: Bri Mitchell Date of : 1955 Study Date: 03/30/2018 Entire Case Report Patient Information Patient Name Valery Cook Date of 1955 Age 62 years Financial # [id number] Gender F AlternateID Lab Number 6 Room Number 1403 Height (in) 64.0 Height (cm) 162.5 BSA 1.65 Weight (lbs) 133.5 Weight (kg) 60.7 Patient Address/Phone Number Home Address [facility] Home Phone Number [address] [place] [id number] Study Information Study Number Admission Scheduled Start Study Start [id number] Mar 20 2018 12:31PM 03/30/2018 Mar 30 2018 4:20PM [place] Service Cardiac Pacer/ICD Admit Source Facility Department Other [facility] - [facility] Physician and Clinical Staff Initial Bri Kenyon Rewriter Jaja Acuña,RT(R) TECH2 Rewriter Julee Walls RN Other Anesthesia, MODEL DRESSER Recorder Sary Ortiz RN Scrub Amor Morataya,RT(R) Procedures Performed Procedure Location (Site) Vessel Name Lead Insertion Venogram Coronary Sinus Other Wire insertion Subclav. Vein (Lft Subclavian Vein 03/30/2018 6:54:10 PM Financial #: [id number] 2 of 9 Patient Name: Valery Cook Study #: [id number] Initial MD: Bri Mitchell Date of : 1955 Study Date: 03/30/2018 Equipment Time Finished Cigar Maker Description Size Mfg Part Number Used/Scraped [id number] 18:15 [employer] WIRE, ASAHI PROWATER 180CM 180CM Used *[id number] DERMABOND, ADHESIVE SKIN [id number] 16:28 CORDIS/PACER * Used GLUE MINI *[id number] 17:21 IMEDICAL PLASMABLADE, PEAD 3.0S * Used *[id number] 16:28 [employer] BLANKET,WARM AIR CCL * Used *[id number] TP-1103 16:28 [employer] SUTURE, STRIP PLUS 1/2" * Used *[id number] 16:28 MEDLINE PACER CANALES, LIMB * 2530 *[id number] Used [id number] 16:28 MEDLINE PACER PACK, PACER CUSTOM * Used *[id number] 17:21 MEDTRONIC INTRODUCER, SAFE SHEATH FR9 FR 9 [id number] Used [id number] 18:10 [employer] WIRE, 3MMJ .035 180CM 180CM Used *[id number] 17:42 Needle Sponge Count 2 22 Used 17:41 Needle Sponge Count 20 200 Used 17:41 Needle Sponge Count 4 4 Used 18:13 NYCOMED OMNIPAQUE, 350 MG, 50ML 50ML [id number] Used SUTURE, 0 ETHIBOND [CT1] (CX21D), 8pk SUTURE, 2-0 VICRYL [CT1] ([id number]) SUTURE, 2-0 VICRYL [CT1] (QNS665F) [id number] 18:06 [facility] [employer] LIVEWIRE, QUAD, MED SWEEP FR 6 Used *[id number] [facility] PAD, ELECTROSURGICAL 16:28 * [id number] *[id number] Used SURGICAL GROUNDING ORANGE LEAD, ATTAIN PERFORMA 18:16 VITATRON MEDTRONIC 88CM 4398-88CM Used STRAIGHT, 88CM LEAD, SPRINT QUATTRO SECURE 6935M-[id number] 18:04 VITATRON MEDTRONIC 62CM Used S 62CM *[id number] PACEMAKER, CLARIA MRI ANESTHESIOLOGISTS' ASSISTANT-D 18:22 VITATRON MEDTRONIC [id number] Used SURESCAN [id number] 16:28 [employer] MEDICAL ABDOUL. / * Used *87385 Equipment Model, Serial, Lot Number and Expiration Data Description Model Number Serial Number Lot Number Expiration Date LEAD, ATTAIN PERFORMA 4398-88 [id number] 10-21-2019 STRAIGHT, 88CM LEAD, SPRINT QUATTRO SECURE S 6935M-62 [id number] 01-13-2020 62CM PACEMAKER, CLARIA MRI ANESTHESIOLOGISTS' ASSISTANT-D [id number] 08-24-2019 SURESCAN WIRE, 3MMJ .035 180CM [id number] 06-25-2020 03/30/2018 6:54:10 PM Financial #: [id number] 3 of 9 Patient Name: Valery Cook Study #: [id number] Initial MD: Bri Mitchell Date of : 1955 Study Date: 03/30/2018 Insurance Information Insurance Payor Medicaid, Medicare Third Republican Third Republican Number MEDICARE A B MCRAB History: Allergies Allergy Reaction No Known Allergies History: Risk Factors Prior CABG Yes Labs Hgb (g/dl) Hct (%) RBC (MIL/MM3) WBC (l/cumm) Platelets (thousands) 11.60-17.00 35.00-51.00 4.00-5.90 4.00-11.00 150.00-450.00 13.0 39 4.2 9.6 397 Glucose (mg/dl) BUN (mg/dl) Creatinine (mg/dl) BUN:Creatinine (1:x) 74.00-106.00 7.00-18.00 0.50-1.30 10.00-20.00 105 31 1.1 28.2 Na (meq/l) K (meq/l) 136.00-145.00 3.50-5.10 137 3.9 INR (PTT:PT) 0.90-1.10 1.2 Medication Medication Total Dose (Bolus/Oral) Medication Total Dosage/Unit 2% XYLOCAINE 50 mL Medications (Bolus/Oral) Medication Time Given Dosage/Unit Administered By Reason 2% XYLOCAINE 03/30/2018 5:58:56 PM 50 mL Bri Mitchell 50 mL 2% XYLOCAINE given in lab by Bri Mitchell in Left shoulder via Subcutaneous. Ordered by Bri Mitchell. 03/30/2018 6:54:10 PM Financial #: [id number] 4 of 9 Patient Name: Valery Cook Study #: [id number] Initial MD: Bri Mitchell Date of : 1955 Study Date: 8 Medication (Drip) Medication Time Given Dosage/Unit Concentration/Unit Diluent (ml) Solution ANCEF 03/30/2018 5:20:29 PM 2 g 2 g ANCEF given in lab by Julee Walls RN via Peripheral IV. Ordered by Bri Mitchell. IV Solutions 03/30/2018 5:04:10 PM 0 mL (IV) NaCl .9 IV Solutions given in lab by Sary Ortiz RN via Peripheral IV. Pump/Drip Flow = 30 ml/hr using N aCl .9. Ordered by Bri Mitchell. Reason: As per physicians verbal order. VANCOMYCIN DRIP 03/30/2018 5:18:36 PM 1 g 1 g VANCOMYCIN DRIP given in lab by Julee Walls, NICOLETTE via Peripheral IV. Ordered by Bri Mitchell. Initial Case Assessment Cardiovascular HR Rhythm NIBP 80 paced 109/64 Edema Present Skin color Skin None Normal Warm Dry Circulatory - Right Pulses Dorsalis Pedis 1 Scale (0,1,2,3,4,d) Circulatory - Left Pulses Dorsalis Pedis 1 Scale (0,1,2,3,4,d) Circulatory - Lower Extremities Color Lower Right Color Lower Left Normal Normal Neurological State Oriented to time-place- Alert Moves all extremities person Respiration - General Respiration Rate SpO2 (%) (B/min) 16 96 03/30/2018 6:54:10 PM Financial #: [id number] 5 of 9 Patient Name: Valery Cook Study #: [id number] Initial MD: Bri Mitchell Date of : 1955 Study Date: 03/30/2018 Final Case Assessment Cardiovascular HR NIBP 89 104/59 Edema Present Skin color Skin None Normal Warm Dry Circulatory - Right Pulses Dorsalis Pedis 1 Scale (0,1,2,3,4,d) Circulatory - Left Pulses Dorsalis Pedis 1 Scale (0,1,2,3,4,d) Circulatory - Lower Extremities Color Lower Right Color Lower Left Normal Normal Neurological State Drowsy Moves all extremities Respiration - General Respiration Rate SpO2 (%) O2 (lpm) (B/min) 14 100 4 Chronological Log Time Study Chronological Log 17:03:09 Patient arrived via Bed. 17:03:10 Patient Name, D.O.B, / Armband Verified By R.N. 17:03:11 Consent signed by the physician and the patient and verified by the [facility] staff. 17:03:12 Pre-op and post- op instructions given; patient acknowledges understanding of instructions. 17:03:15 Verbal Stimulation=2 Physical Stimulation=2 Airway=2 Respiration=2 TOTAL=8. (0=absent, 1=li mited, 2=present) 17:03:25 Patient has been NPO for More than 6Hrs. 17:03:27 Skin Breakdown- generalized ecchymosis uper extremitites 17:03:55 Patient Warmer Placed on the Table. 17:03:56 Disposable Defibrillator Pads Placed On Patient. 03/30/2018 6:54:10 PM Financial #: [id number] Patient Name: Valery Cook Study #: [id number] Initial MD: Bri Mitchell Date of : 1955 Study Date: 03/30/2018 17:03:58 Sabra Prominences Protected 17:03:59 A # 20 IV was noted in the Forearm (left). Grade = 0 17:04:00 History and physical on the chart or being dictated. IV Solutions given in lab by Sary Ortiz RN via Peripheral IV. Pump/Drip Flow = 30 ml/hr u sing NaCl .9. Ordered 17:04:10 by Bri Mitchell. Reason: As per physicians verbal order. Assessment: Initial Case, HR=80 BPM, Rhythm=paced, XXZE=713/64 mmhg, Edema=None, Color=Normal, Skin = Warm, Dry Right Pulses: Andrae Ped=1 Left Pulses: Andrae Ped=1 17:15:29 Lower Right Extremities: Color=Normal Lower Left Extremities: Color=Normal Neurological: State=Alert, Ox3, CORREA Respiration: Resp=16 B/min, SpO2=96 % 17:18:36 1 g VANCOMYCIN DRIP given in lab by Julee Walls, NICOLETTE via Peripheral IV. Ordered by Bri Aranda. 17:20:29 2 g ANCEF given in lab by Julee Walls, NICOLETTE via Peripheral IV. Ordered by Bri Mitchell. Anesthesia was notified that we were ready for a MODEL DRESSER 17:21:40 17:23:37 Sabra Prominences Protected 17:23:49 2% CHLORHEXIDINE GLUCONATE WASH AND NASAL SWIPE DONE PRIOR TO PROCEDURE. 17:23:55 Disposable Defibrillator Pads Placed On Patient. 17:24:05 Table restraints applied according to hospital policy 17:25:20 Reference ECG taken 17:29:16 Bilateral Upper Chest Prepped Times Two. 17:30:24 History and physical on the chart or being dictated. First Sponge And Instrument Count Done by Amor Morataya, RT(R). 17:33:50 Hypo's: 4, Sponges: 20, Bovie/scratch: 2 Sutures: 10, Blades: 1, Instruments: 26, Syveck Patches: 0 verified by MM 17:34:36 Anesthesia at bedside. Assumes care of patient. Connie EASON 17:35:03 MD arrived. 17:36:27 A sterile drape was applied after a 5 minute prep drying time. 17:50:26 Dr Wilkinson has arrived to assist with the LMA. Time Out. Correct patient, procedure, procedure equipment, site and side verified with physicia n present. Time 17:57:46 concurred by MD, individual staff and MODEL DRESSER. Time Out #2 - Consents verified, patient in correct position, all results are labled and displa yed, safety precautions 17:58:15 taken, antibiotics administered. Time out concurred by MD, individual staff and MODEL DRESSER in procedu re 17:58:56 50 mL 2% XYLOCAINE given in lab by Bri Mitchell in Left shoulder via Subcutaneous. Ordered by Bri Mitchell. 18:00:05 Surgical Incision Made. 18:00:07 A pocket was created at the Lt. upper chest. 18:00:34 A device was explanted. 18:01:42 Vascular access was obtained in the Subclav. Vein (Lft. 18:01:47 Wire inserted 18:01:51 A sheath was advanced into the Subclav. Vein (Lft using the Cutdown technique. 03/30/2018 6:54:10 PM Financial #: [id number] 7 of 9 Patient Name: Valery Cook Study #: [id number] Initial MD: Bri Mitchell Date of : 1955 Study Date: 03/30/2018 18:02:07 Vascular access was obtained in the Subclav. Vein (Lft. 18:02:11 Wire inserted 18:02:15 A sheath was advanced into the Subclav. Vein (Lft using the Cutdown technique. 18:02:22 A LEAD, SPRINT QUATTRO SECURE S 62CM 62CM was inserted and positioned in the RV. 18:05:29 Lead placement verified under fluoroscopy 18:06:35 The RV lead impedance and threshold being tested. 18:09:14 The RV lead was sutured to the fascia. 18:09:25 A WIRE, 3MMJ .035 180CM 180CM was inserted via Subclav. Vein (Lft. A LIVEWIRE, QUAD, MED SWEEP FR 6 was advanced vis Subclav. Vein (Lft and placed in the CS. Plac ement was 18:09:44 visually confirmed under fluoroscopy. 18:13:10 The Coronary Sinus was manually injected with 10 cc's of contrast. OMNIPAQUE, 350 MG, 50ML 50ML used. 18:14:08 Livewire removed 18:14:31 A WIRE, Pixelle PROWATER 180CM 180CM was inserted via Subclav. Vein (Lft. 18:17:05 A LEAD, ATTAIN PERFORMA STRAIGHT, 88CM 88CM was inserted and positioned in the CS/LV. 18:17:28 Lead placement verified under fluoroscopy 18:17:31 The CS/LV lead impedance and threshold is being tested. 18:19:05 Prowater wire removed. 18:21:11 The CS/LV lead was sutured to the fascia. 18:32:19 Old RV lead cut and capped. 18:33:51 Pocket flushed with antibiotic solution 18:34:47 A PACEMAKER, CLARIA MRI ANESTHESIOLOGISTS' ASSISTANT-D SURESCAN was connected and placed in the pocket. 18:38:31 The pocket is being closed. Second Sponge And Instrument Count Done by Amor Morataya RT(R). 18:38:46 Hypo's: 4, Sponges: 20, Bovie/scratch: 2 Sutures: 10, Blades: 1, Instruments: ~, Syveck Patches: 0 verified by MM 18:39:23 Implant Procedure was performed. 18:39:29 A Pocket Revision . (Dual) 18:39:44 A Lead Revision . (Dual) New RV lead inserted, old cut and capped. 18:40:03 A Bivent ICD Implant . (Dual) Final Sponge And Instrument Count Done by Amor Morataya RT(R). 18:43:49 Hypo's: 4, Sponges: 20, Bovie/scratch: 2 Sutures: 10, Blades: 1, Instruments: 26, Syveck Patches: 0 verified by MM 18:44:06 The pocket was closed. 18:44:52 Case End (Physician broke scrub) 18:45:48 Steri-strips and a sterile dressing applied to site. 18:45:56 PACU called. Spoke to Gonzalez 18:46:15 Bedside Report will be given. 03/30/2018 6:54:10 PM Financial #: [id number] Patient Name: Valery Cook Study #: [id number] Initial MD: Bri Mitchell Date of : 1955 Study Date: 03/30/2018 Assessment: Final Case, HR=89 BPM, AWQJ=707/59 mmhg, Edema=None, Color=Normal, Skin = Warm, Dr y Right Pulses: Andrae Ped=1 Left Pulses: Andrae Ped=1 18:47:39 Lower Right Extremities: Color=Normal Lower Left Extremities: Color=Normal Neurological: State=Drowsy, CORREA Respiration: Resp=14 B/min, BgP5=724 %, O2=4 lpm 18:48:28 LMA removed by anesthesia and supplemental oxygen applied by SFM. 18:50:12 No case complications noted. 18:50:13 Cine recording checked. 18:50:26 Patient moved to stretcher 18:51:22 Defibrillator and ground pads removed. Skin intact. 18:51:23 A sling was placed on the affected arm. 18:58:36 Transported via bed to PACU with MODEL DRESSER and tech accompanying pt in stable condition. End Study - Contrast Media Used In Study Contrast Total Opened (mL) Total Used (mL) Total Wasted (mL) Omnipaque 50 10 40 End Study - Maximum Contrast Load Max Contrast Load (mL) 275.8 End Study - Radiation Exposure Fluoro Time (minutes) 4.0 End Study - Patient Disposition Complications Transferred To Telemetry Bed 03/30/2018 6:54:10 PM Financial #: [id number]
[2018-03-30] MEDS ORDERED: *morphine SULFATE 4 MG/ML PERIprocedure ONLY ONE ×2 (19:06→19:19)
--- NOTE | 2018-03-30 19:28 | XR ---
EXAM DATE: 03/30/2018 7:22 PM EST AGE/SEX: 62 years / Female INDICATIONS: Post pacemaker. CLINICAL DATA: This is the patient's initial encounter. Patient reports that signs and symptoms have been present for 1 day and indicates a pain score of Nonresponsive. MEDICAL/SURGICAL HISTORY: Non-responsive. Non-responsive. [place] [facility] [place]. . FINDINGS: A single AP view of the chest demonstrates the lungs to be symmetrically aerated without evidence of mass, infiltrate or effusion. Mild cardiomegaly. Left-sided pacemaker with multiple lead. No pneumoth orax. Previous median sternotomy The cardiomediastinal contours are unremarkable. Osseous structures are intact. CONCLUSION: Left-sided pacemaker placement. No pneumothorax. Electronically signed by: Cameron aSlgado MD 03/30/2018 7:27 PM EST
[2018-03-30] MEDS: Acetaminophen 325 MG Tablet PO PRN (21:13)
--- NOTE | 2018-03-30 22:23 | ECG ---
Date Performed: 03/30/2018 Time Performed: 19:34:45 PTAGE: 62 years EKG: Dual chamber pacemaker nonspecific ST T-wave changes Compared to prior electrocardiogram, V entricular pacing is present. It is difficult to compare morphology otherwise. Clinical correlation s uggested. PREVIOUS TRACING : 03/28/2018 18.43 DOCTOR: Gume Holland Interpretating Date/Time 03/30/2018 22:22:20
[2018-03-31] MEDS: ceFAZolin 2 GM Premix Inj 2 GM/50 ML PIGGYBACK IV.SIG SCH ×3 (01:18→17:15)
[2018-03-31] MEDS ORDERED: Amiodarone Inj 150 MG in Dextrose 5% in Water Inj 97 ML IV.SIG ONE ×2 (04:38)
[2018-03-31 05:27] LABS: Hemoglobin 13.3 gm/dL (11.6-15.3); Mean Corpuscular HGB Conc 33.2 % (32.0-36.0); Mean Corpuscular Hemoglobin 30.7 pg (27.0-34.0); Mean Corpuscular Volume 92.4 fL (80.0-100.0); Mean Platelet Volume 8.8 fL (7.0-11.0); Platelet Count 432 th/mm3 (150-450); Red Blood Count 4.33 mil/mm3 (4.00-5.30); Red Cell Distribution Width 15.5 % (11.6-17.2)
[2018-03-31 05:43] LABS: INR 1.5 Ratio; Prothrombin Time 15.5 sec (9.8-11.6)
[2018-03-31 05:47] LABS: Calcium 8.7 mg/dL (8.5-10.1); Magnesium 2.4 mg/dL (1.5-2.5); Phosphorus 4.2 mg/dL (2.5-4.9); Potassium 4.1 meq/L (3.5-5.1)
[2018-03-31] MEDS: Acetaminophen 325 MG Tablet PO PRN (07:58)
[2018-03-31] MEDS: Magnesium Oxide 400 MG Tablet PO SCH ×2 (09:48→20:38)
[2018-03-31] MEDS: Carvedilol 12.5 MG Tablet PO SCH ×2 (09:48→20:25)
[2018-03-31] MEDS: Ramipril 2.5 MG Capsule PO SCH (09:48)
[2018-03-31] MEDS: Amiodarone 200 MG Tablet PO SCH (10:49)
--- NOTE | 2018-03-31 12:07 | P.PNIM ---
Subjective Interval history: V. tach occurred early this morning. Amiodarone drip initiated. Patient has no complaints when seen. She does have pain in the left shoulder which is not being controlled by acetaminophen. Her only other problem is constipation. Physical Exam Vital signs: Last Vital Signs Temp 97.6 F 03/31/18 10:59 Pulse 70 03/31/18 10:59 Resp 18 03/31/18 10:59 BP 116/76 03/31/18 10:59 Pulse Ox 96 03/31/18 10:59 Intake & Output 03/29/18 03/30/18 03/31/18 04/01/18 06:59 06:59 06:59 06:59 Intake Total 0 / 0 240 / 240 100 / 100 Output Total 2300 / 2300 1250 / 1250 1000 / 1000 250 / 250 Balance -2300 / -2300 -1010 / -1010 -1000 / -1000 -150 / -150 Weight 60.5 kg 60.7 kg 60.9 kg Narrative: GENERAL: NAD, A&Ox3 HEAD: Normocephalic. NECK: Supple, trachea midline. No lymphadenopathy. EYES: No scleral icterus. No injection or drainage. CARDIOVASCULAR: Regular rate and rhythm without murmurs, gallops, or rubs. RESPIRATORY: Breath sounds equal bilaterally. No accessory muscle use. GASTROINTESTINAL: Abdomen soft, non-tender, nondistended. MUSCULOSKELETAL: No cyanosis, or edema. Left arm is in a sling, bruising and bandage at left pacemaker placement site. SKIN: Warm and dry. NEURO: No focal neurological deficits. Urinary Catheter Management Female External: Cath placed during this visit: yes Urethral indwelling: No Insertion date: 03/23/18 Insertion time: 03:00 Results Labs CBC & Chem 7: 03/31/18 04:05 03/31/18 04:05 Imaging Imaging: Impressions Chest X-Ray 03/30/18 00:00 CONCLUSION: Left-sided pacemaker placement. No pneumothorax. Procedures Procedures: Cardiac catheterization on 03/20/2018. Stent placed to proximal LAD. Assessment and Plan (1) NSTEMI (non-ST elevated myocardial infarction): Code(s): I21.4 - Non-ST elevation (NSTEMI) myocardial infarction Status: Acute (2) Chronic systolic heart failure: Code(s): I50.22 - Chronic systolic (congestive) heart failure Status: Chronic (3) Artificial cardiac pacemaker: Code(s): Z95.0 - Presence of cardiac pacemaker Status: Chronic (4) AICD (automatic cardioverter/defibrillator) present: Code(s): Z95.810 - Presence of automatic (implantable) cardiac defibrillator Status: Chronic (5) CAD (coronary artery disease): Code(s): I25.10 - Atherosclerotic heart disease of [place] coronary artery without angina pectoris Status: Chronic (6) Tobacco abuse: Code(s): Z72.0 - Tobacco use Status: Chronic (7) Wide-complex tachycardia: Code(s): I47.2 - Ventricular tachycardia Status: Acute (8) History of stroke: Code(s): Z86.73 - Personal history of transient ischemic attack (TIA), and cerebral infarction without residual deficits Status: Chronic (9) History of ETOH abuse: Code(s): Z87.898 - Personal history of other specified conditions Status: Chronic Plan 62-year-old female admitted to the ER after having a syncopal episode. history of coronary artery disease, cardiomyopathy, status post CABG , AICD placement (now changes to BiV). ST elevation myocardial infarction Status post PCI stent in LAD Continue aspirin Continue Plavix Continue atorvastatin Continue carvedilol Continue ramipril Ischemic cardiomyopathy Atrial fibrillation with RVR/Atrial flutter Wide-complex tachycardia Transient V. tach Amiodarone IV initiated overnight Transition to p.o. amiodarone Follow INR Continue beta-sanjay Status post BiV AICD placement Hyperglycemia resolved Follow blood sugars intermittantly DVT prophylaxis Coumadin Progress Note: Quality VTE Deep Vein Thrombosis/Pulmonary Embolism Present on Admission: No _ (1) CAD (coronary artery disease) Qualifiers: Coronary Disease-Associated Artery/Lesion type: [place] vs. transplanted heart: Associated angina:
[2018-03-31] MEDS: Docusate Sodium 100 MG Capsule PO SCH ×2 (12:34→17:15)
[2018-03-31] MEDS ORDERED: Amiodarone 200 MG Tablet PO ONE (12:35)
--- NOTE | 2018-03-31 14:39 | P.PNCA ---
Subjective Interval history: alert in nad Medications and Allergies Active Medications: Active Medications Acetaminophen (Tylenol) 650 mg PO Q4H PRN PRN Reason: Headache, fever, pain 1-4 Last Admin: 03/31/18 07:58 Dose: 650 mg Al Hydroxide/Mg Hydroxide (Milk Of Magndeni Liq) 30 ml PO BID PRN PRN Reason: CONSTIPATION Last Admin: 03/31/18 12:34 Dose: 30 ml Amiodarone HCl (Cordarone) 400 mg PO DAILY [facility] Aspirin (Aspirin Chew) 81 mg PO DAILY [facility] Last Admin: 03/31/18 09:48 Dose: 81 mg Atorvastatin Calcium (Lipitor) 40 mg PO HS [facility] Last Admin: 03/30/18 22:31 Dose: 40 mg Carvedilol (Coreg) 12.5 mg PO BID [facility] Last Admin: 03/31/18 09:48 Dose: 12.5 mg Clopidogrel Bisulfate (Plavix) 75 mg PO DAILY [facility] Last Admin: 03/31/18 09:48 Dose: 75 mg Docusate Sodium (Colace) 100 mg PO TID [facility] Last Admin: 03/31/18 12:34 Dose: 100 mg Furosemide (Lasix Inj) 40 mg IV.PUSH BID@0900,1800 [facility] Last Admin: 03/31/18 09:47 Dose: 40 mg Cefazolin Sodium/Dextrose (Ancef 2 Gm Premix Inj) 2 gm in 50 mls @ 100 mls/hr IV.SIG Q8H [facility] Stop: 03/31/18 16:29 Last Infusion: 03/31/18 11:52 Dose: Infused Magnesium Oxide (Mag-Ox) 400 mg PO BID [facility] Last Admin: 03/31/18 09:48 Dose: 400 mg Miscellaneous Information (Misc Nursing Information) 0 each OTHER UNSCH PRN PRN Reason: SEE LABEL COMMENTS Stop: 03/31/18 19:07 Ondansetron HCl (Zofran Inj) 4 mg IV.PUSH Q4H PRN PRN Reason: NAUSEA Pharmacy Profile Note (Coumadin Consult Pharmacy) 1 each OTHER UNSCH PRN PRN Reason: PHARMACY DOCUMENTATION Ramipril (Altace) 2.5 mg PO DAILY [facility] Last Admin: 03/31/18 09:48 Dose: 2.5 mg Sodium Chloride (Ns Flush) 2 ml IV.FLUSH BID [facility] Last Admin: 03/31/18 09:48 Dose: 2 ml Sodium Chloride (Ns Flush) 2 ml IV.FLUSH PRN PRN PRN Reason: FLUSH AFTER USING IV ACCESS Last Admin: 03/23/18 22:39 Dose: 2 ml Tramadol HCl (Ultram) 50 mg PO Q6H PRN PRN Reason: Pain 3 to 10 Last Admin: 03/31/18 12:34 Dose: 50 mg Warfarin Sodium (Coumadin) 5 mg PO DAILY@1600 [facility] Last Admin: 03/30/18 17:36 Dose: Not Given Allergies Allergy/AdvReac Type Severity Reaction Status Date / Time No Known Allergies Allergy Verified 03/20/18 12:05 Physical Exam Vital signs: Vital Signs 03/30/18 16:00 03/30/18 19:04 03/30/18 19:08 Temperature 98.0 F 98.1 F Pulse Rate 79 70 Respiratory Rate 17 22 16 Blood Pressure 123/70 131/71 Pulse Oximetry 95 99 03/30/18 19:15 03/30/18 19:21 03/30/18 19:30 Temperature Pulse Rate 69 69 Respiratory Rate 17 16 20 Blood Pressure 137/69 137/69 Pulse Oximetry 97 97 03/30/18 19:45 03/30/18 20:00 03/30/18 20:15 Temperature Pulse Rate 69 69 69 Respiratory Rate 16 16 12 Blood Pressure 126/66 121/67 131/74 Pulse Oximetry 95 95 98 03/30/18 20:30 03/30/18 20:45 03/30/18 20:50 Temperature Pulse Rate 69 69 Respiratory Rate 13 16 Blood Pressure 118/62 130/72 Pulse Oximetry 94 L 96 96 03/30/18 21:00 03/30/18 22:00 03/30/18 22:41 Temperature 97.8 F Pulse Rate 69 68 69 Respiratory Rate 16 Blood Pressure 118/72 Pulse Oximetry 99 03/30/18 23:00 03/31/18 00:00 03/31/18 01:00 Temperature 97.4 F L Pulse Rate 69 68 68 Respiratory Rate 16 Blood Pressure 121/68 Pulse Oximetry 100 03/31/18 02:00 03/31/18 03:00 03/31/18 03:15 Temperature Pulse Rate 68 68 68 Respiratory Rate 14 Blood Pressure 140/84 Pulse Oximetry 96 03/31/18 04:00 03/31/18 04:15 03/31/18 05:05 Temperature Pulse Rate 68 68 116 H Respiratory Rate 14 16 Blood Pressure 140/84 106/79 Pulse Oximetry 96 99 03/31/18 05:15 03/31/18 05:16 03/31/18 06:00 Temperature Pulse Rate 118 H 69 68 Respiratory Rate 16 Blood Pressure 124/75 Pulse Oximetry 99 03/31/18 07:00 03/31/18 07:49 03/31/18 08:00 Temperature 97.5 F L Pulse Rate 70 69 68 Respiratory Rate 18 Blood Pressure 121/75 Pulse Oximetry 96 03/31/18 08:01 03/31/18 09:00 03/31/18 10:00 Temperature Pulse Rate 68 68 Respiratory Rate Blood Pressure Pulse Oximetry 95 03/31/18 10:43 03/31/18 10:59 03/31/18 11:00 Temperature 97.6 F Pulse Rate 70 69 Respiratory Rate 18 Blood Pressure 116/76 Pulse Oximetry 95 96 03/31/18 12:00 03/31/18 13:00 03/31/18 14:00 Temperature Pulse Rate 70 68 68 Respiratory Rate Blood Pressure Pulse Oximetry Intake & Output 03/30/18 03/31/18 03/31/18 18:59 06:59 18:59 Intake Total 100 / 100 Output Total 1000 / 1000 250 / 250 Balance -1000 / -1000 -150 / -150 Weight 60.9 kg Intake: IV 100 / 100 Ancef 2 GM Premix Inj 2 gm In 100 / 100 50 ml @ 100 mls/hr IV.SIG Q8H [facility] Rx#:[id number] Output: Urine 1000 / 1000 250 / 250 Other: # Bowel Movements 0 - Constitutional no acute distress - Routine HEENT Exam Head: Present: normocephalic - Routine Neck Exam Present: supple - Routine Respiratory Exam Present: CTA bilaterally - Routine Cardiovascular Exam Present: S1, S2 - Routine Abdominal Exam Present: soft - Routine Extremities Exam Comments: no ramón - Urinary Catheter Management Female External Cath placed during this visit: yes Urethral indwelling: No Reason for continuing: Not indwelling catheter Insertion date: 03/23/18 Insertion time: 03:00 Results 03/31/18 04:05 03/31/18 04:05 Coagulation 03/30/18 03/31/18 Range/Units 04:00 04:05 PT 12.4 H 15.5 H (9.8-11.6) sec CBC 03/30/18 03/31/18 Range/Units 04:00 04:05 WBC 9.6 12.0 H (4.0-11.0) th/mm3 RBC 4.25 4.33 (4.00-5.30) mil/mm3 Hgb 13.3 13.3 (11.6-15.3) gm/dL Hct 39.0 40.0 (35.0-46.0) % Plt Count 397 432 (150-450) th/mm3 Comprehensive Metabolic Panel 03/30/18 03/31/18 Range/Units 07:55 04:05 Sodium 137 137 (136-145) meq/L Potassium 3.9 4.1 (3.5-5.1) meq/L Chloride 102 101 (98-107) meq/L Carbon Dioxide 28.4 27.0 (21.0-32.0) meq/L BUN 31 H 32 H (7-18) mg/dL Creatinine 1.10 H 1.21 H (0.50-1.00) mg/dL Calcium 9.4 8.7 (8.5-10.1) mg/dL Intake and Output 03/30/18 03/31/18 03/31/18 22:59 06:59 14:59 Intake Total 100 / 100 Output Total 1000 / 1000 250 / 250 Balance -1000 / -1000 -150 / -150 Intake: IV 100 / 100 Ancef 2 GM Premix Inj 2 gm In 100 / 100 50 ml @ 100 mls/hr IV.SIG Q8H [facility] Rx#:[id number] Output: Urine 1000 / 1000 250 / 250 Other: # Bowel Movements 0 Weight 60.9 kg - Imaging and Cardiology Imaging: Impressions Chest X-Ray 03/30/18 00:00 CONCLUSION: Left-sided pacemaker placement. No pneumothorax. Assessment and Plan - Assessment (1) NSTEMI (non-ST elevated myocardial infarction) Code(s): I21.4 - Non-ST elevation (NSTEMI) myocardial infarction Status: Acute (2) CAD (coronary artery disease) Code(s): I25.10 - Atherosclerotic heart disease of [place] coronary artery without angina pectoris Status: Chronic (3) Cardiomyopathy Code(s): I42.9 - Cardiomyopathy, unspecified Status: Acute (4) Tobacco abuse Code(s): Z72.0 - Tobacco use Status: Chronic (5) Atrial fibrillation Code(s): I48.91 - Unspecified atrial fibrillation Status: Acute - Plan 1) VT s/p ablation Atrial paced with AV delay set long to avoid RV pacing, possible cause of VT NSVT noted this morning Discussed with Dr. Mitchell s/p BiV ICD 2) CAD BMS to LAD by Dr. Stein
--- NOTE | 2018-03-31 18:40 | P.PN ---
Subjective Interval history: Feeling ok Physical Exam Vital signs: Vital Signs 03/30/18 19:04 03/30/18 19:08 03/30/18 19:15 Temperature 98.1 F Pulse Rate 70 69 Respiratory Rate 22 16 17 Blood Pressure 131/71 137/69 Pulse Oximetry 99 97 03/30/18 19:21 03/30/18 19:30 03/30/18 19:45 Temperature Pulse Rate 69 69 Respiratory Rate 16 20 16 Blood Pressure 137/69 126/66 Pulse Oximetry 97 95 03/30/18 20:00 03/30/18 20:15 03/30/18 20:30 Temperature Pulse Rate 69 69 69 Respiratory Rate 16 12 13 Blood Pressure 121/67 131/74 118/62 Pulse Oximetry 95 98 94 L 03/30/18 20:45 03/30/18 20:50 03/30/18 21:00 Temperature Pulse Rate 69 69 Respiratory Rate 16 Blood Pressure 130/72 Pulse Oximetry 96 96 03/30/18 22:00 03/30/18 22:41 03/30/18 23:00 Temperature 97.8 F Pulse Rate 68 69 69 Respiratory Rate 16 Blood Pressure 118/72 Pulse Oximetry 99 03/31/18 00:00 03/31/18 01:00 03/31/18 02:00 Temperature 97.4 F L Pulse Rate 68 68 68 Respiratory Rate 16 Blood Pressure 121/68 Pulse Oximetry 100 03/31/18 03:00 03/31/18 03:15 03/31/18 04:00 Temperature Pulse Rate 68 68 68 Respiratory Rate 14 14 Blood Pressure 140/84 140/84 Pulse Oximetry 96 96 03/31/18 04:15 03/31/18 05:05 03/31/18 05:15 Temperature Pulse Rate 68 116 H 118 H Respiratory Rate 16 Blood Pressure 106/79 Pulse Oximetry 99 03/31/18 05:16 03/31/18 06:00 03/31/18 07:00 Temperature Pulse Rate 69 68 70 Respiratory Rate 16 Blood Pressure 124/75 Pulse Oximetry 99 03/31/18 07:49 03/31/18 08:00 03/31/18 08:01 Temperature 97.5 F L Pulse Rate 69 68 Respiratory Rate 18 Blood Pressure 121/75 Pulse Oximetry 96 95 03/31/18 09:00 03/31/18 10:00 03/31/18 10:43 Temperature Pulse Rate 68 68 Respiratory Rate Blood Pressure Pulse Oximetry 95 03/31/18 10:59 03/31/18 11:00 03/31/18 12:00 Temperature 97.6 F Pulse Rate 70 69 70 Respiratory Rate 18 Blood Pressure 116/76 Pulse Oximetry 96 03/31/18 13:00 03/31/18 14:00 03/31/18 15:00 Temperature Pulse Rate 68 68 69 Respiratory Rate Blood Pressure Pulse Oximetry 03/31/18 15:15 Temperature 97.1 F L Pulse Rate 69 Respiratory Rate 18 Blood Pressure 115/73 Pulse Oximetry 96 Intake & Output 03/30/18 03/31/18 03/31/18 18:59 06:59 18:59 Intake Total 1200 / 1200 Output Total 1000 / 1000 700 / 700 Balance -1000 / -1000 500 / 500 Weight 60.9 kg Intake: IV 200 / 200 Cordarone Inj 150 MG In D5W Inj 100 / 100 97 ML @ 600 mls/hr IV.SIG ONCE ONE Rx#:[id number] Ancef 2 GM Premix Inj 2 gm In 100 / 100 50 ml @ 100 mls/hr IV.SIG Q8H [facility] Rx#:[id number] Oral 1000 / 1000 Output: Urine 1000 / 1000 700 / 700 Other: # Voids 4 # Bowel Movements 0 - Constitutional no acute distress - Routine HEENT Exam Eye: Present: PERRL ENT: Present: mucous membranes moist - Routine Respiratory Exam Present: CTA bilaterally - Routine Cardiovascular Exam Present: RRR, S1, S2 - Routine Abdominal Exam Present: soft - Routine Neurological Exam Present: alert, oriented X3 - Detailed Neurological Exam: Coma Scale Eye Opening: Spontaneous Verbal Response: Oriented Motor Response: Obey commands Lang Coma Scale Total: 15 - Urinary Catheter Management Female External Cath placed during this visit: yes Urethral indwelling: No Reason for continuing: Not indwelling catheter Insertion date: 03/23/18 Insertion time: 03:00 Results - Labs CBC & Chem 7: 03/31/18 04:05 03/31/18 04:05 Laboratory Results - last 24 hr 03/31/18 03/31/18 03/31/18 04:05 04:05 04:05 WBC 12.0 H RBC 4.33 Hgb 13.3 Hct 40.0 MCV 92.4 MCH 30.7 MCHC 33.2 RDW 15.5 Plt Count 432 MPV 8.8 PT 15.5 H INR 1.5 Sodium 137 Potassium 4.1 Chloride 101 Carbon Dioxide 27.0 Anion Gap 9 BUN 32 H Creatinine 1.21 H Estimated GFR 45 L Random Glucose 160 H Calcium 8.7 Phosphorus 4.2 Magnesium 2.4 - Imaging Impressions Chest X-Ray 03/30/18 00:00 CONCLUSION: Left-sided pacemaker placement. No pneumothorax. - Procedures Cardiac catheterization on 03/20/2018. Stent placed to proximal LAD. Assessment and Plan - Assessment (1) Ventricular tachycardia Code(s): I47.2 - Ventricular tachycardia Status: Acute Plan: Doing better Some short busts of NSVT observed Amio IV DC Amio PO given If stable, can be DH in AM (2) Atrial fibrillation Code(s): I48.91 - Unspecified atrial fibrillation Status: Acute Plan: In sinus rhythm (3) Cardiomyopathy Code(s): I42.9 - Cardiomyopathy, unspecified Status: Acute Plan: On optimal management Coreg increased to 25 mg BIP SP BIV ICD. Device well functioning Some pain at the device site pain killer given can be DH if stable in AM I will be available on a PRN basis
[2018-03-31] MEDS ORDERED: Morphine Inj 4 MG/ML Vial IV.PUSH ONE (18:45)
[2018-04-01 06:47] LABS: INR 2.4 Ratio; Prothrombin Time 24.1 sec (9.8-11.6)
[2018-04-01] MEDS: Ramipril 2.5 MG Capsule PO SCH (08:30)
[2018-04-01] MEDS: Docusate Sodium 100 MG Capsule PO SCH ×2 (08:30→13:25)
[2018-04-01] MEDS: Carvedilol 12.5 MG Tablet PO SCH (08:30)
[2018-04-01] MEDS ORDERED: Amiodarone 200 MG Tablet PO SCH (09:00)
[2018-04-01] MEDS: Magnesium Oxide 400 MG Tablet PO SCH (10:28)
--- NOTE | 2018-04-01 12:20 | P.DS ---
DS: Providers Date of admission: 03/20/18 12:31 Primary care physician: UNKNOWN Consults: 03/20/18 14:01 Consult to Hospitalist Routine Consulting Provider: Freddie Francis Reason for Consultation: nstemi Notified:: Service Spoke with:: Melodie Date Notified:: 03/20/18 Time Notified:: 14:10 Ordering Provider: DARIEL 03/21/18 05:23 HUB Only Consult Order Routine Consulting Provider: Juan David Stein 03/22/18 18:41 Consult to Oxygen Therapy Teacher Routine Consulting Provider: Hayde Estrada Reason for Consultation: Pt came in under STEMI alert, s/p stent placement by Dr. Stein. Pt has a history of Afib and now sustained SVT. Dr. Stein has this patient on Lidocaine and previously on amiodarone. None of these interventions seems to work. Patient is at risk for hemodyanmic compromise. I believe she needs DC cardioversion. We probably should not wait for Dr. Mitchell to see her tomorrow. Notified:: Service Spoke with:: Corine Date Notified:: 03/22/18 Time Notified:: 19:08 Ordering Provider: ALLEN 03/23/18 07:08 Consult to Cardiology Routine Consulting Provider: Bri Mitchell Does the patient have a Project Mgr who follows them?: No Preferred Bow Making Machine Operator:: Bri Mitchell Reason for Consultation: Dr. Stein requests this Electrophysiology consultation by Dr. Mitchell for Afib/SVT refractory to medical management. Please assign this consult to Dr. Mitchell only. Notified:: Service Spoke with:: WINDY Date Notified:: 03/23/18 Time Notified:: 07:48 Ordering Provider: ALLEN 03/28/18 15:22 Consult to Hospitalist Routine Consulting Provider: Fidel Gonzalez Reason for Consultation: v. tach, s/p ablation. Notified:: Service Spoke with:: DAMIAN Date Notified:: 03/28/18 Time Notified:: 15:30 Ordering Provider: [place] Brief History from admission: Ms. Cook is a pleasant 62-year-old female with a history of coronary artery disease status post CABG, AICD placement, atrial fibrillation who presented to the emergency department after she passed out at home. Patient lives with her and 2 other family members. I saw the patient after she came back from cardiac cath. She denies any chest pain prior to passing out. However she does admit to having some lightheadedness. Upon arrival, EKG showed a bundle branch block and STEMI alert was called by ER provider. Patient subsequently underwent emergent cardiac catheterization with a stent placed to proximal LAD. At the time of this interview, patient denies any chest pain, shortness of breath, fever or chills. She denies any changes in bowel or bladder habits. No cough, abdominal pain. Past medical history: Long history of coronary artery disease starting in her 30s, stent placement, CABG, cardiomyopathy requiring AICD placement, atrial fibrillation Past surgical history: CABG Family history: Father had premature CAD. No significant distance in mother. Social history: Patient continues to smoke 1 pack a day. She denies using alcohol or illicit drugs. DS: Diagnosis Discharge Diagnosis (1) NSTEMI (non-ST elevated myocardial infarction): Status: Acute (2) Chronic systolic heart failure: Status: Chronic (3) Artificial cardiac pacemaker: Status: Chronic (4) AICD (automatic cardioverter/defibrillator) present: Status: Chronic (5) CAD (coronary artery disease): Status: Chronic (6) Tobacco abuse: Status: Chronic (7) Wide-complex tachycardia: Status: Acute (8) History of stroke: Status: Chronic (9) History of ETOH abuse: Status: Chronic DS: Summary Mrs. Cook is a 62-year-old female. She came in secondary to STEMI. She has a long history of coronary artery disease, cardiomyopathy, and is status post CABG. She has had a stent to her LAD during the stay. Pre-existing atrial fibrillation and AICD which was modified during the stay. Cardiac treatments are also modified as listed below. Specifically Coreg has been increased to 25 mg p.o. twice daily. Pain is controlled on present treatments and patient is medically stable and cleared for discharge home today. Discharge will likely occur tomorrow (04/02/2018) as patient needs a distance ride which is not available till tomorrow. Time Spent with Patient Total time spent providing and/or coordinating discharge services: Quality: VTE Deep Vein Thrombosis/Pulmonary Embolism Present on Admission: No Results Procedures completed during hospitalization: Cardiac catheterization on 2017. Stent placed to proximal LAD. Labs on day of discharge: Labs from last 24 hours 04/01/18 06:18 PT 24.1 H INR 2.4 Impressions ITS Impressions Chest X-Ray 03/30/18 00:00 CONCLUSION: Left-sided pacemaker placement. No pneumothorax. Discharge Plan Discharge Disposition Patient Disposition: Discharge Home Discharge Condition Condition: Stable Discharge Order Discharge Orders: Discharge Order (Routine); Ordered 04/01/18 Ordered By: Wicho Santillan Discharge Details Anticipated Discharge Date: 04/02/18 Discharge Comment: August discharge when ride to [place], [place] is available. Physicians Team Primary Care Provider: UNKNOWN, Attending Provider: Wicho Santillan Other Providers: Juan David Stein ; Hayde Estrada ; Bri Mitchell Rxs /Orders / Referrals /Forms Prescriptions: New amiodarone 200 mg Tablet 400 mg PO DAILY Qty: 30 RF: 0 clopidogrel [Plavix] 75 mg Tablet 75 mg PO DAILY Qty: 30 RF: 0 hydrocodone-acetaminophen 10-325 mg Tablet 1 tab PO Q4H PRN (Reason: Pain 7 to 10) Qty: 20 RF: 0 magnesium oxide 400 mg (241.3 mg magnesium) Tablet 400 mg PO DAILY Qty: 30 RF: 0 warfarin [Coumadin] 5 mg Tablet 5 mg PO DAILY@1600 Qty: 30 RF: 0 aspirin 81 mg Tablet,Chewable 81 mg PO DAILY Qty: 30 RF: 0 furosemide [Lasix] 40 mg tablet 40 mg PO DAILY Qty: 30 RF: 0 carvedilol [Coreg] 25 mg tablet 25 mg PO BID Qty: 60 RF: 0 ramipril 2.5 mg Capsule 2.5 mg PO DAILY Qty: 30 RF: 0 atorvastatin 40 mg Tablet 40 mg PO HS Qty: 30 RF: 0 Referrals: UNKNOWN, [Primary Care Provider] - See Instructions Discharge Instructions Patient Printed Instructions: Cardiac Ablation (DC), Pacemaker Generator Change (DC) Discharge Interventions Interventions: Discharge Planning - Case Management Last Done: 03/23/18 12:12 Status ED Status: Left Department
--- NOTE | 2018-04-01 13:45 | P.PNCA ---
Subjective Interval history: assymptomatic in nad Medications and Allergies Active Medications: Active Medications Acetaminophen (Tylenol) 650 mg PO Q4H PRN PRN Reason: Headache, fever, pain 1-2 Last Admin: 03/31/18 07:58 Dose: 650 mg Hydrocodone Bitart/Acetaminophen (Vest 10/325) 1 tab PO Q4H PRN PRN Reason: Pain 7 to 10 Last Admin: 03/31/18 23:41 Dose: 1 tab Hydrocodone Bitart/Acetaminophen (Vest 5/325) 1 tab PO Q4H PRN PRN Reason: Pain 3 to 6 Al Hydroxide/Mg Hydroxide (Milk Of Magndeni Liq) 30 ml PO BID PRN PRN Reason: CONSTIPATION Last Admin: 03/31/18 12:34 Dose: 30 ml Amiodarone HCl (Cordarone) 400 mg PO DAILY [facility] Stop: 04/07/18 09:01 Last Admin: 04/01/18 08:30 Dose: 400 mg Amiodarone HCl (Cordarone) 200 mg PO DAILY [facility] Aspirin (Aspirin Chew) 81 mg PO DAILY [facility] Last Admin: 04/01/18 08:30 Dose: 81 mg Atorvastatin Calcium (Lipitor) 40 mg PO HS [facility] Last Admin: 03/31/18 20:26 Dose: 40 mg Carvedilol (Coreg) 25 mg PO BID [facility] Last Admin: 04/01/18 08:30 Dose: 25 mg Clopidogrel Bisulfate (Plavix) 75 mg PO DAILY [facility] Last Admin: 04/01/18 08:30 Dose: 75 mg Docusate Sodium (Colace) 100 mg PO TID [facility] Last Admin: 04/01/18 13:25 Dose: 100 mg Furosemide (Lasix Inj) 40 mg IV.PUSH BID@0900,1800 [facility] Last Admin: 04/01/18 08:29 Dose: 40 mg Magnesium Oxide (Mag-Ox) 400 mg PO BID [facility] Last Admin: 04/01/18 10:28 Dose: 400 mg Ondansetron HCl (Zofran Inj) 4 mg IV.PUSH Q4H PRN PRN Reason: NAUSEA Pharmacy Profile Note (Coumadin Consult Pharmacy) 1 each OTHER UNSCH PRN PRN Reason: PHARMACY DOCUMENTATION Ramipril (Altace) 2.5 mg PO DAILY [facility] Last Admin: 04/01/18 08:30 Dose: 2.5 mg Sodium Chloride (Ns Flush) 2 ml IV.FLUSH BID [facility] Last Admin: 04/01/18 08:31 Dose: 2 ml Sodium Chloride (Ns Flush) 2 ml IV.FLUSH PRN PRN PRN Reason: FLUSH AFTER USING IV ACCESS Last Admin: 03/23/18 22:39 Dose: 2 ml Warfarin Sodium (Coumadin) 5 mg PO DAILY@1600 [facility] Last Admin: 03/31/18 15:45 Dose: 5 mg Allergies Allergy/AdvReac Type Severity Reaction Status Date / Time No Known Allergies Allergy Verified 03/20/18 12:05 Physical Exam Vital signs: Vital Signs 03/31/18 14:00 03/31/18 15:00 03/31/18 15:15 Temperature 97.1 F L Pulse Rate 68 69 69 Respiratory Rate 18 Blood Pressure 115/73 Pulse Oximetry 96 03/31/18 16:00 03/31/18 17:00 03/31/18 18:00 Temperature Pulse Rate 68 68 68 Respiratory Rate Blood Pressure Pulse Oximetry 03/31/18 19:00 03/31/18 20:00 03/31/18 21:00 Temperature 97.4 F L Pulse Rate 68 68 68 Respiratory Rate 18 Blood Pressure 99/67 L Pulse Oximetry 99 03/31/18 22:00 03/31/18 23:41 04/01/18 00:00 Temperature 97.5 F L Pulse Rate 69 69 Respiratory Rate 16 18 Blood Pressure 120/75 Pulse Oximetry 97 04/01/18 01:00 04/01/18 02:00 04/01/18 02:40 Temperature Pulse Rate 68 68 110 H Respiratory Rate Blood Pressure Pulse Oximetry 04/01/18 03:00 04/01/18 04:00 04/01/18 05:00 Temperature 97.6 F Pulse Rate 68 69 69 Respiratory Rate 18 Blood Pressure 99/75 L Pulse Oximetry 97 04/01/18 05:47 04/01/18 07:00 04/01/18 08:00 Temperature 97.9 F Pulse Rate 69 69 68 Respiratory Rate 16 Blood Pressure 109/69 Pulse Oximetry 96 04/01/18 09:00 04/01/18 10:00 04/01/18 10:04 Temperature Pulse Rate 68 68 Respiratory Rate Blood Pressure Pulse Oximetry 93 L 04/01/18 10:34 04/01/18 11:00 04/01/18 12:00 Temperature 98.1 F Pulse Rate 68 69 69 Respiratory Rate 18 Blood Pressure 106/67 Pulse Oximetry 99 04/01/18 13:00 Temperature Pulse Rate 68 Respiratory Rate Blood Pressure Pulse Oximetry Intake & Output 03/31/18 04/01/18 04/01/18 18:59 06:59 18:59 Intake Total 1250 / 1250 Output Total 700 / 700 200 / 200 Balance 550 / 550 -200 / -200 Weight 60.7 kg Intake: IV 250 / 250 Cordarone Inj 150 MG In D5W Inj 100 / 100 97 ML @ 600 mls/hr IV.SIG ONCE ONE Rx#:[id number] Ancef 2 GM Premix Inj 2 gm In 150 / 150 50 ml @ 100 mls/hr IV.SIG Q8H VANESSA Rx#:[id number] Oral 1000 / 1000 Output: Urine 700 / 700 200 / 200 Other: # Voids 4 2 Date of Last Bowel Movement 03/25/18 03/25/18 - Constitutional no acute distress - Routine HEENT Exam Head: Present: normocephalic - Routine Neck Exam Present: supple - Routine Respiratory Exam Present: CTA bilaterally - Routine Cardiovascular Exam Present: S1, S2 - Routine Abdominal Exam Present: soft - Routine Extremities Exam Comments: no ramón - Urinary Catheter Management Female External Cath placed during this visit: yes Urethral indwelling: No Reason for continuing: Not indwelling catheter Insertion date: 03/23/18 Insertion time: 03:00 Results 03/31/18 04:05 03/31/18 04:05 Coagulation 03/31/18 04/01/18 Range/Units 04:05 06:18 PT 15.5 H 24.1 H (9.8-11.6) sec CBC 03/31/18 Range/Units 04:05 WBC 12.0 H (4.0-11.0) th/mm3 RBC 4.33 (4.00-5.30) mil/mm3 Hgb 13.3 (11.6-15.3) gm/dL Hct 40.0 (35.0-46.0) % Plt Count 432 (150-450) th/mm3 Comprehensive Metabolic Panel 03/31/18 Range/Units 04:05 Sodium 137 (136-145) meq/L Potassium 4.1 (3.5-5.1) meq/L Chloride 101 (98-107) meq/L Carbon Dioxide 27.0 (21.0-32.0) meq/L BUN 32 H (7-18) mg/dL Creatinine 1.21 H (0.50-1.00) mg/dL Calcium 8.7 (8.5-10.1) mg/dL Intake and Output 03/31/18 04/01/18 04/01/18 22:59 06:59 14:59 Intake Total 1050 / 1050 Output Total 650 / 650 Balance 400 / 400 Intake: IV 50 / 50 Ancef 2 GM Premix Inj 2 gm In 50 / 50 50 ml @ 100 mls/hr IV.SIG Q8H VANESSA Rx#:[id number] Oral 1000 / 1000 Output: Urine 650 / 650 Other: # Voids 4 2 Date of Last Bowel Movement 03/25/18 03/25/18 Weight 60.7 kg - Imaging and Cardiology Imaging: Impressions Chest X-Ray 03/30/18 00:00 CONCLUSION: Left-sided pacemaker placement. No pneumothorax. Assessment and Plan - Assessment (1) NSTEMI (non-ST elevated myocardial infarction) Code(s): I21.4 - Non-ST elevation (NSTEMI) myocardial infarction Status: Acute (2) CAD (coronary artery disease) Code(s): I25.10 - Atherosclerotic heart disease of [place] coronary artery without angina pectoris Status: Chronic (3) Cardiomyopathy Code(s): I42.9 - Cardiomyopathy, unspecified Status: Acute (4) Tobacco abuse Code(s): Z72.0 - Tobacco use Status: Chronic (5) Atrial fibrillation Code(s): I48.91 - Unspecified atrial fibrillation Status: Acute - Plan 1) VT s/p ablation Atrial paced with AV delay set long to avoid RV pacing, possible cause of VT NSVT noted this morning Discussed with Dr. Mitchell s/p BiV ICD 2) CAD BMS to LAD by Dr. Stein; i strongly advised the patientto be compliant with aspirin and plavix or risk life threatening stent thrombosis, she understands and states she will be compliant
--- NOTE | 2018-04-01 15:04 | P.DS ---
DS: Providers Date of admission: 03/20/18 12:31 Primary care physician: UNKNOWN Consults: 03/20/18 14:01 Consult to Hospitalist Routine Consulting Provider: Freddie Francis Reason for Consultation: nstemi Notified:: Service Spoke with:: Melodie Date Notified:: 03/20/18 Time Notified:: 14:10 Ordering Provider: DARIEL 03/21/18 05:23 HUB Only Consult Order Routine Consulting Provider: Juan David Stein 03/22/18 18:41 Consult to [facility] Specialists Routine Consulting Provider: Hayde Estrada Reason for Consultation: Pt came in under STEMI alert, s/p stent placement by Dr. Stein. Pt has a history of Afib and now sustained SVT. Dr. Stein has this patient on Lidocaine and previously on amiodarone. None of these interventions seems to work. Patient is at risk for hemodyanmic compromise. I believe she needs DC cardioversion. We probably should not wait for Dr. Mitchell to see her tomorrow. Notified:: Service Spoke with:: Corine Date Notified:: 03/22/18 Time Notified:: 19:08 Ordering Provider: ALLEN 03/23/18 07:08 Consult to Cardiology Routine Consulting Provider: Bri Mitchell Does the patient have a [employer] Singer who follows them?: No Preferred Business Applications Analyst:: Bri Mitchell Reason for Consultation: Dr. Stein requests this Electrophysiology consultation by Dr. Mitchell for Afib/SVT refractory to medical management. Please assign this consult to Dr. Mitchell only. Notified:: Service Spoke with:: WINDY Date Notified:: 03/23/18 Time Notified:: 07:48 Ordering Provider: ALLEN 03/28/18 15:22 Consult to Hospitalist Routine Consulting Provider: Fidel Gonzalez Reason for Consultation: v. tach, s/p ablation. Notified:: Service Spoke with:: DAMIAN Date Notified:: 03/28/18 Time Notified:: 15:30 Ordering Provider: [place] Brief History from admission: Ms. Cook is a pleasant 62-year-old female with a history of coronary artery disease status post CABG, AICD placement, atrial fibrillation who presented to the emergency department after she passed out at home. Patient lives with her and 2 other family members. I saw the patient after she came back from cardiac cath. She denies any chest pain prior to passing out. However she does admit to having some lightheadedness. Upon arrival, EKG showed a bundle branch block and STEMI alert was called by ER provider. Patient subsequently underwent emergent cardiac catheterization with a stent placed to proximal LAD. At the time of this interview, patient denies any chest pain, shortness of breath, fever or chills. She denies any changes in bowel or bladder habits. No cough, abdominal pain. Past medical history: Long history of coronary artery disease starting in her 30s, stent placement, CABG, cardiomyopathy requiring AICD placement, atrial fibrillation Past surgical history: CABG Family history: Father had premature CAD. No significant distance in mother. Social history: Patient continues to smoke 1 pack a day. She denies using alcohol or illicit drugs. DS: Diagnosis Discharge Diagnosis (1) NSTEMI (non-ST elevated myocardial infarction): Status: Acute (2) Chronic systolic heart failure: Status: Chronic (3) Artificial cardiac pacemaker: Status: Chronic (4) AICD (automatic cardioverter/defibrillator) present: Status: Chronic (5) CAD (coronary artery disease): Status: Chronic (6) Tobacco abuse: Status: Chronic (7) Wide-complex tachycardia: Status: Acute (8) History of stroke: Status: Chronic (9) History of ETOH abuse: Status: Chronic DS: Summary Mrs. Cook is a 62-year-old female. She came in secondary to STEMI. She has a long history of coronary artery disease, cardiomyopathy, and is status post CABG. She has had a stent to her LAD during the stay. Pre-existing atrial fibrillation and AICD which was modified during the stay. Cardiac treatments are also modified as listed below. Specifically Coreg has been increased to 25 mg p.o. twice daily. Pain is controlled on present treatments and patient is medically stable and cleared for discharge home today. Time Spent with Patient Total time spent providing and/or coordinating discharge services: Quality: VTE Deep Vein Thrombosis/Pulmonary Embolism Present on Admission: No Results Procedures completed during hospitalization: Cardiac catheterization on 2017. Stent placed to proximal LAD. Labs on day of discharge: Labs from last 24 hours 04/01/18 06:18 PT 24.1 H INR 2.4 Impressions ITS Impressions Chest X-Ray 03/30/18 00:00 CONCLUSION: Left-sided pacemaker placement. No pneumothorax. Discharge Plan Discharge Disposition Patient Disposition: Discharge Home Discharge Condition Condition: Stable Discharge Order Discharge Orders: Discharge Order (Routine); Ordered 04/01/18 Ordered By: Wicho Santillan Discharge Details Anticipated Discharge Date: 04/02/18 Discharge Comment: August discharge when ride to [place], [place] is available. Physicians Team Primary Care Provider: UNKNOWN, Attending Provider: Wicho Santillan Other Providers: Juan David Stein ; Hayde Estrada ; Bri Mitchell Rxs /Orders / Referrals /Forms Prescriptions: New amiodarone 200 mg Tablet 400 mg PO DAILY Qty: 30 RF: 0 clopidogrel [Plavix] 75 mg Tablet 75 mg PO DAILY Qty: 30 RF: 0 hydrocodone-acetaminophen 10-325 mg Tablet 1 tab PO Q4H PRN (Reason: Pain 7 to 10) Qty: 20 RF: 0 magnesium oxide 400 mg (241.3 mg magnesium) Tablet 400 mg PO DAILY Qty: 30 RF: 0 warfarin [Coumadin] 5 mg Tablet 5 mg PO DAILY@1600 Qty: 30 RF: 0 aspirin 81 mg Tablet,Chewable 81 mg PO DAILY Qty: 30 RF: 0 furosemide [Lasix] 40 mg tablet 40 mg PO DAILY Qty: 30 RF: 0 carvedilol [Coreg] 25 mg tablet 25 mg PO BID Qty: 60 RF: 0 ramipril 2.5 mg Capsule 2.5 mg PO DAILY Qty: 30 RF: 0 atorvastatin 40 mg Tablet 40 mg PO HS Qty: 30 RF: 0 Referrals: UNKNOWN, [Primary Care Provider] - See Instructions Discharge Instructions Patient Printed Instructions: Warfarin (By mouth), Amiodarone (By mouth), Atorvastatin (By mouth), Carvedilol (By mouth), Ramipril (By mouth), Myocardial Infarction (DC), Dilated Cardiomyopathy (DC), Heart Healthy Diet (GEN), Cardiac Ablation (DC), Pacemaker Generator Change (DC) Status ED Status: Left Department
--- NOTE | 2018-04-01 17:04 | ECG ---
Date Performed: 04/01/2018 Time Performed: 01:43:58 PTAGE: 62 years EKG: Paced rhythm Abnormal ECG PREVIOUS TRACING : 03/30/2018 19.34 Since the previous tracing, no significant change noted DOCTOR: Maida Mar Interpretating Date/Time 04/01/2018 17:03:35
[2018-04-08] MEDS ORDERED: Amiodarone 200 MG Tablet PO SCH (09:00)
== END 2018-04-01 16:08 | disposition home or self-care (01) ==
LOC: NEPE 12:04 → NEDA 12:31 → HCPC 14:37 → HCVI 03-22 14:21 → HIMC 03-25 10:40 → N04 03-28 17:54 → HCIS 03-30 19:07
PROVIDERS: ADMIT Hospitalist; ATTEND Hospitalist
DX: I25.5 Ischemic cardiomyopathy; I44.7 Left bundle-branch block, unspecified; J44.9 Chronic obstructive pulmonary disease, unspecified; K59.00 Constipation, unspecified; Z95.810 Presence of automatic (implantable) cardiac defibrillator; I25.110 Atherosclerotic heart disease of native coronary artery with unstable angina pectoris; Z86.73 Personal history of transient ischemic attack (TIA), and cerebral infarction without residual deficits; I47.2 Ventricular tachycardia; F10.21 Alcohol dependence, in remission; Z82.49 Family history of ischemic heart disease and other diseases of the circulatory system; F17.210 Nicotine dependence, cigarettes, uncomplicated; Z95.1 Presence of aortocoronary bypass graft; I48.0 Paroxysmal atrial fibrillation; I45.10 Unspecified right bundle-branch block; E78.5 Hyperlipidemia, unspecified; I50.22 Chronic systolic (congestive) heart failure; R51 Headache; I21.4 Non-ST elevation (NSTEMI) myocardial infarction; Z79.82 Long term (current) use of aspirin; Z95.5 Presence of coronary angioplasty implant and graft